=== PATIENT | male | born 1960 | race Caucasian/White ===

== ENCOUNTER 2017-10-03 04:17 | Inpatient (IN) ==
--- NOTE | 2017-10-03 04:37 | Emergency Department Note ---
Disposition Clinical Impression: Diabetic wet gangrene of the foot, ESRD (end stage renal disease) Disposition: Admitted As Inpatient Condition: Undetermined General Adult HPI - General Chief complaint: ED Extremity Problem,Nontraumatic Stated complaint: Gangrene in Lt toe Time Seen by Provider: 10/03/17 04:23 Source: patient Limitations: no limitations - History of Present Illness Pain Scale: 10 - Related Data Home Medications Medication Instructions Recorded Confirmed Calcium Acetate [Phos-LO] 2,001 mg PO TIDWM 02/09/15 10/03/17 Aspirin 81 mg PO DAILY 10/03/17 10/03/17 Atorvastatin [Lipitor] 40 mg PO HS 10/03/17 10/03/17 Bumetanide [Bumex] 1 mg PO DAILY 10/03/17 10/03/17 Docusate Sodium [Dok] 100 mg PO BID 10/03/17 10/03/17 Isosorbide DInitrate [Isosorbide 50 mg PO TID 10/03/17 10/03/17 Dinitrate] Losartan Potassium [Cozaar] 100 mg PO DAILY 10/03/17 10/03/17 NIFEdipine [Nifedipine ER] 60 mg PO DAILY 10/03/17 10/03/17 OxyCODONE Immed Rel [Roxicodone 15 15 mg PO BID 10/03/17 10/03/17 MG] Renal Vitamin [Renal Caps Softgel] 1 cap PO DAILY 10/03/17 10/03/17 Allergies Allergy/AdvReac Type Severity Reaction Status Date / Time No Known Allergies Allergy Verified 07/18/16 08:43 Past Medical History - Past Medical History Medical history: Reports: diabetes, dialysis, hypertension, renal disease Surgical history: Reports: appendectomy, other Psychiatric history: Reports: no psych history - Social History Smoking Status: Never smoker Smokeless Tobacco Status: No Alcohol use: Reports: none Drug use: Reports: none Physical Exam - General Limitations: no limitations General appearance: alert, in no apparent distress Course Vital Signs Temperature 98.4 F 10/03/17 04:20 Pulse Rate 73 10/03/17 04:20 Respiratory Rate 20 10/03/17 04:20 Blood Pressure 120/65 10/03/17 04:20 O2 Sat by Pulse Oximetry 93 10/03/17 04:20 Temperature 97.9 F 10/03/17 18:36 Pulse Rate 62 10/03/17 11:06 Respiratory Rate 18 10/03/17 18:36 Blood Pressure 133/68 10/03/17 18:36 O2 Sat by Pulse Oximetry 94 10/03/17 11:06 Oxygen Delivery Oxygen Delivery Room Air Medical Decision Making - Lab Data Result diagrams: 10/03/17 04:40 10/03/17 04:40 Lab Results 10/03/17 10/03/17 10/03/17 Range/Units 04:40 04:40 04:40 WBC 13.0 H (4.3-11.1) K/mcL RBC 3.10 L (4.19-5.50) M/mcL Hgb 10.6 L (12.9-16.9) g/dL Hct 30.5 L (37.5-50.1) % MCV 98.4 (83.0-100.0) fL MCH 34.2 H (28.0-33.3) pg MCHC 34.8 (31.6-35.5) g/dL RDW 11.9 (11.5-14.5) % Plt Count 228 (140-400) K/mcL MPV 9.5 (9.4-12.4) fL Immature Gran % 0.7 (0-4) % Seg Neutrophils % 81.0 % Lymphocytes % 6.1 % Monocytes % 9.2 % Eosinophils % 2.8 % Basophils % 0.2 % Neutrophils # 10.5 H (1.6-8.9) K/mcL Lymphocytes # 0.8 (0.6-4.6) K/mcL Monocytes # 1.2 (0.0-1.3) K/mcL Eosinophils # 0.4 (0.0-0.6) K/mcL Basophils # 0.0 (0.0-0.2) K/mcL Sodium 130 L (136-145) mEq/L Potassium 3.3 L (3.5-5.1) mEq/L Chloride 85 L (98-107) mEq/L Carbon Dioxide 28 (23-29) mEq/L BUN 35 H (6-20) mg/dL Creatinine 9.00 H (0.70-1.30) mg/dL Est GFR ( Amer) 7 L (> 60) Est GFR (Non-Af Amer) 6 L (> 60) BUN/Creatinine Ratio 4 L (6-26) Glucose 159 H (70-105) mg/dL POC Glucose (70-99) mg/dL Calculated Osmolality 281 (280-300) Lactic Acid 0.9 (0.5-2.2) mmol/L Calcium 9.7 (8.6-10.3) mg/dL 10/03/17 Range/Units 07:01 WBC (4.3-11.1) K/mcL RBC (4.19-5.50) M/mcL Hgb (12.9-16.9) g/dL Hct (37.5-50.1) % MCV (83.0-100.0) fL MCH (28.0-33.3) pg MCHC (31.6-35.5) g/dL RDW (11.5-14.5) % Plt Count (140-400) K/mcL MPV (9.4-12.4) fL Immature Gran % (0-4) % Seg Neutrophils % % Lymphocytes % % Monocytes % % Eosinophils % % Basophils % % Neutrophils # (1.6-8.9) K/mcL Lymphocytes # (0.6-4.6) K/mcL Monocytes # (0.0-1.3) K/mcL Eosinophils # (0.0-0.6) K/mcL Basophils # (0.0-0.2) K/mcL Sodium (136-145) mEq/L Potassium (3.5-5.1) mEq/L Chloride (98-107) mEq/L Carbon Dioxide (23-29) mEq/L BUN (6-20) mg/dL Creatinine (0.70-1.30) mg/dL Est GFR ( Amer) (> 60) Est GFR (Non-Af Amer) (> 60) BUN/Creatinine Ratio (6-26) Glucose (70-105) mg/dL POC Glucose 137 H (70-99) mg/dL Calculated Osmolality (280-300) Lactic Acid (0.5-2.2) mmol/L Calcium (8.6-10.3) mg/dL Attestation Statement - Attestation Attestation: I examined this patient and my medical decision-making was reviewed with the Resident Physician. I agree with the documented findings, disposition and treatment plan as described except to the extent set forth below. [id number] provided Patient arrives with a swollen necrotic appearing left great toe. History of dialysis dependency and diabetes. Patient recently scheduled for surgical intervention an outside facility canceled due to surgical risks
--- NOTE | 2017-10-03 04:38 | Emergency Department Note ---
Disposition Clinical Impression: Diabetic wet gangrene of the foot, ESRD (end stage renal disease) Disposition: Admitted As Inpatient Condition: Undetermined Referrals: Kacie Lopez CNP [Primary Care Provider] - Forms: ED Satisfaction Letter Time of Disposition: 05:35 Extremity Problem HPI - General Chief complaint: ED Extremity Problem,Nontraumatic Stated complaint: Gangrene in Lt toe Time Seen by Provider: 10/03/17 04:23 Source: patient Mode of arrival: ambulatory Limitations: no limitations Nursing Notes Reviewed: Yes Vital Signs Reviewed: Yes - History of Present Illness HPI Narrative: 57-year-old male dialysis patient at here at [facility], diabetes, that is poorly controlled, with gangrene of his left great toe. The patient states he was supposed to have surgery today at [facility] but the anesthesiologist canceled it due to complications of the patient's health including diabetes and dialysis. The patient states they told him to come to [facility] for further evaluation. The patient states that he has been expressing worsening pain and discharge from the site. He admits to chills without fever. He is very concerned about his left great toe. Pain Scale: 10 - Related Data Home Medications Medication Instructions Recorded Confirmed Amlodipine [Amlodipine Besylate] 10 mg PO DAILY 02/09/15 02/09/15 Calcium Acetate [Phos-LO] 2,001 mg PO TIDWM 02/09/15 02/09/15 Lisinopril [Zestril] 40 mg PO DAILY 02/09/15 02/09/15 NIFEdipine [Procardia] 120 mg PO DAILY 02/09/15 02/09/15 OxyCODONE Immed Rel 10 mg PO Q6HR PRN 02/09/15 02/09/15 Oxycodone HCl/Acetaminophen 1 tab PO Q6H PRN 02/09/15 02/09/15 [Percocet 10-325 mg Tablet] Promethazine [Phenergan] 25 mg PO Q6HR 02/09/15 02/09/15 Allergies Allergy/AdvReac Type Severity Reaction Status Date / Time No Known Allergies Allergy Verified 07/18/16 08:43 All systems ED: reviewed and negative except as stated. Constitutional: Reports: chills. Denies: fever, weakness ENT ED: Denies: dysphagia Cardiovascular: Denies: chest pain Respiratory: Denies: dyspnea Gastrointestinal: Denies: abdominal pain, nausea, vomiting Genitourinary: Denies: urgency, dysuria Musculoskeletal: Reports: arthralgia, myalgia. Denies: back pain Integumentary: Reports: lesions. Denies: rash Neurological: Reports: numbness, paresthesias. Denies: headache, confusion Past Medical History - Past Medical History Attestation: Yes The following information was validated with the patient. Source: patient Medical history: Reports: diabetes, dialysis, hypertension, renal disease Surgical history: Reports: appendectomy, other Psychiatric history: Reports: no psych history - Social History Smoking Status: Never smoker Smokeless Tobacco Status: No Alcohol use: Reports: none Drug use: Reports: none Physical Exam - General Limitations: no limitations General appearance: alert, in no apparent distress - Head Head exam: atraumatic, normocephalic, normal inspection - Eye Eye exam: Present: normal appearance, PERRL, EOMI - ENT ENT exam: normal exam, normal oropharynx, mucous membranes moist - Neck Neck exam: Present: normal inspection, full ROM, trachea midline - Chest Chest inspection: Present: normal inspection, symmetric chest wall rise - Respiratory Respiratory exam: Absent: respiratory distress - Cardiovascular Cardiovascular exam: Present: regular rate - Extremities Exam Extremities exam: Present: full ROM, other (Patient has wet gangrene of his left great toe that extends to the base of it. There is some partial wet gangrene in the webspace between the great toe and second toe. The patient has decreased pulses in that left toe. The patient has no associated cellulitis.) Course - Consultations Consultation #1: Spoke to Dr. Masters in podiatry who will see patient. Consultation placed. Time: 05:35 Vital Signs Temperature 98.4 F 10/03/17 04:20 Pulse Rate 73 10/03/17 04:20 Respiratory Rate 20 10/03/17 04:20 Blood Pressure 120/65 10/03/17 04:20 O2 Sat by Pulse Oximetry 93 10/03/17 04:20 Temperature 98.4 F 10/03/17 04:20 Pulse Rate 73 10/03/17 04:20 Respiratory Rate 20 10/03/17 04:20 Blood Pressure 120/65 10/03/17 04:20 O2 Sat by Pulse Oximetry 93 10/03/17 04:20 Oxygen Delivery Oxygen Delivery Room Air Extremity Problem, Nontraumati - MDM Narrative Medical decision making narrative: Patient's lab work demonstrates a leukocytosis. Blood cultures were drawn. The patient's creatinine is slightly elevated compared to baseline but his potassium and sodium within normal limits. The patient does not need emergent dialysis. The patient is due to have dialysis at some point today. Even the patient's wet gangrene that is noted on his left great toe, the patient was started on Zosyn and vancomycin. The patient will be admitted to the hospital at this time for further workup and likely podiatry consultation and surgical intervention. The patient was made aware and agrees to plan. No further questions or concerns at this time. He is resting otherwise comfortably in the room. Accepted to hospital service, Dr. Busby. - Lab Data Lab results reviewed: Yes I reviewed the patient's lab results. Result diagrams: 10/03/17 04:40 10/03/17 04:40 Lab Results 10/03/17 10/03/17 10/03/17 Range/Units 04:40 04:40 04:40 WBC 13.0 H (4.3-11.1) K/mcL RBC 3.10 L (4.19-5.50) M/mcL Hgb 10.6 L (12.9-16.9) g/dL Hct 30.5 L (37.5-50.1) % MCV 98.4 (83.0-100.0) fL MCH 34.2 H (28.0-33.3) pg MCHC 34.8 (31.6-35.5) g/dL RDW 11.9 (11.5-14.5) % Plt Count 228 (140-400) K/mcL MPV 9.5 (9.4-12.4) fL Immature Gran % 0.7 (0-4) % Seg Neutrophils % 81.0 % Lymphocytes % 6.1 % Monocytes % 9.2 % Eosinophils % 2.8 % Basophils % 0.2 % Neutrophils # 10.5 H (1.6-8.9) K/mcL Lymphocytes # 0.8 (0.6-4.6) K/mcL Monocytes # 1.2 (0.0-1.3) K/mcL Eosinophils # 0.4 (0.0-0.6) K/mcL Basophils # 0.0 (0.0-0.2) K/mcL Sodium 130 L (136-145) mEq/L Potassium 3.3 L (3.5-5.1) mEq/L Chloride 85 L (98-107) mEq/L Carbon Dioxide 28 (23-29) mEq/L BUN 35 H (6-20) mg/dL Creatinine 9.00 H (0.70-1.30) mg/dL Est GFR ( Amer) 7 L (> 60) Est GFR (Non-Af Amer) 6 L (> 60) BUN/Creatinine Ratio 4 L (6-26) Glucose 159 H (70-105) mg/dL Calculated Osmolality 281 (280-300) Lactic Acid 0.9 (0.5-2.2) mmol/L Calcium 9.7 (8.6-10.3) mg/dL - Radiology Data Radiology results reviewed: Yes I reviewed the patient's radiology results. Foot X-Ray 10/03/17 04:28 IMPRESSION: No radiographic evidence for osteomyelitis. D/ / Eduar Esquivel MD / Eduar Esquivel MD Interpreting Provider: Eduar Esquivel MD
[2017-10-03 05:02] LABS: Basophils % 0.2 %; Eosinophils # 0.4 K/mcL (0.0-0.6); Eosinophils % 2.8 %; Hematocrit 30.5 % (37.5-50.1); Hemoglobin 10.6 g/dL (12.9-16.9); Immature Granulocytes % 0.7 % (0-4); Lymphocytes # 0.8 K/mcL (0.6-4.6); Lymphocytes % 6.1 %; Mean Corpuscular HGB Conc 34.8 g/dL (31.6-35.5); Mean Corpuscular Hemoglobin 34.2 pg (28.0-33.3); Mean Corpuscular Volume 98.4 fL (83.0-100.0); Mean Platelet Volume 9.5 fL (9.4-12.4); Monocytes # 1.2 K/mcL (0.0-1.3); Monocytes % 9.2 %; Neutrophils # 10.5 K/mcL (1.6-8.9); Platelet Count 228 K/mcL (140-400); Red Cell Distribution Width 11.9 % (11.5-14.5)
[2017-10-03 05:18] LABS: Calcium 9.7 mg/dL (8.6-10.3); Potassium 3.3 mEq/L (3.5-5.1)
[2017-10-03] MEDS ORDERED: Piperacillin/Tazobactam 3.375 GM in 0.9 % Sodium Chloride Mini Bag 100 ML IVPB ONE (05:22)
[2017-10-03] MEDS ORDERED: Naloxone 0.4 MG/ML INJ IVP PRN (08:21)
[2017-10-03] MEDS ORDERED: Acetaminophen 325 MG TABLET PO PRN (08:21)
[2017-10-03] MEDS ORDERED: Dextrose Gel 15 GM/37.5 ML TUBE PO PRN ×2 (08:25)
[2017-10-03] MEDS ORDERED: *HR* Dextrose 50 % in Water (Syg) 50 ML SYRINGE IVP PRN (08:25)
[2017-10-03] MEDS ORDERED: D5% in Water 1,000 ML IVC PRN (08:25)
--- NOTE | 2017-10-03 10:18 | Internal Med History&Physical ---
Date of Encounter: 10/03/17 Time of Encounter: 09:30 Internal Medicine - H&P: HPI Chief complaint: " I need my big toe amputated" Admitted From: Home Plans for Post Hospital Care: Home History of present illness: Mr. Weaver is a 57 year old male with PMH of DM, HTN, ESRD on HD who presented to the ER saying he needs surgery for an infected Left big toe He reports being in his usual state of health till 7 days ago when he developed a blister on his big toe of the left foot and the blister continued to get wider till the foot got infected. He reports his to started getting black a couple of days ago, and he had presented to an outside facility where surgery was recommended but the anesthesits said he was "high risk" and referred him to [place] He denies fever or chills, no preceding trauma, no SOB, no CP, no nausea, vomiting , or diarrhea, he denies any medicationallergies he does not smoke, denies illicit drug use , reports compliance with his meds and HD. He has had surgeries in the past without any mayuri-op complications, nor reactions to anesthesis He denies changes in bowel or urinary habits Past Med Surg Social Fam HX - Past Medical History Medical history: diabetes, dialysis, hypertension, renal disease Additional medical history: heart cath 2018 Psychiatric history: no psych history - Past Surgical History Surgical History: appendectomy, other Additional surgical history: R FOOT SURGERY - Social History Smoking Status: Never smoker Smokeless Tobacco Status: No Alcohol use: none Drug use: none Internal Medicine - H&P: Meds Calcium Acetate [Phos-LO] 2,001 mg PO TIDWM 02/09/15 [History] Aspirin 81 mg PO DAILY 10/03/17 [History] Atorvastatin [Lipitor] 40 mg PO HS 10/03/17 [History] Bumetanide [Bumex] 1 mg PO DAILY 10/03/17 [History] Docusate Sodium [Dok] 100 mg PO BID 10/03/17 [History] Isosorbide DInitrate [Isosorbide Dinitrate] 50 mg PO TID 10/03/17 [History] Losartan Potassium [Cozaar] 100 mg PO DAILY 10/03/17 [History] NIFEdipine [Nifedipine ER] 60 mg PO DAILY 10/03/17 [History] OxyCODONE Immed Rel [Roxicodone 15 MG] 15 mg PO BID 10/03/17 [History] Renal Vitamin [Renal Caps Softgel] 1 cap PO DAILY 10/03/17 [History] 3 Allergy/AdvReac Type Severity Reaction Status Date / Time No Known Allergies Allergy Verified 07/18/16 08:43 All Systems PM: A 10-system review of systems was performed and is negative for pertinent findings except as documented above in the HPI. - Constitutional Constitutional: as per HPI - EENT Eyes: as per HPI Ears: as per HPI Nose, mouth and throat: as per HPI - Cardiovascular Cardiovascular ROS IM: as per HPI - Respiratory Respiratory: as per HPI - Gastrointestinal Gastrointestinal: as per HPI - Musculoskeletal Musculoskeletal ROS IM: as per HPI - Integumentary Integumentary IM: as per HPI - Neurological Neurological ROS: as per HPI - Hematologic/Lymphatic Hematologic/Lymphatic: as per HPI - Constitutional Vitals: Temp Pulse Resp BP Pulse Ox 97.9 F 66 16 117/61 90 10/03/17 07:01 10/03/17 07:01 10/03/17 07:01 10/03/17 07:01 10/03/17 07:01 General appearance: Present: A&O X 3, pleasant, no acute distress Exam: See below - Head Head exam: Present: atraumatic, normal inspection - Eye Eye exam: Present: PERRL, conjuntiva pink, sclera anicteric - ENT ENT exam: Present: mucous membranes moist - Neck Neck exam general surgery: Present: normal inspection - Respiratory Respiratory exam: Present: CTAB - Cardiovascular Cardiovascular exam: Present: RRR, +S1, +S2, systolic murmur. Absent: JVD - GI/Abdominal GI/Abdominal exam: Present: normal bowel sounds, soft, no peritoneal signs. Absent: distended, tenderness - Extremities Exam Additional comments: Left foot in wound dressing clean at this time, not removed as dressing was just done prior to my review - Neurological Exam Neurological exam: Present: alert, CN II-XII intact, oriented X3, no focal deficits. Absent: pronater drift, facial droop, speech deficit - Skin Skin exam: Present: dry, intact Internal Med - H&P Results - Labs CBC & Chem 7: 10/03/17 04:40 10/03/17 04:40 - Assessment and plan (1) Diabetic wet gangrene of the foot Current Visit: Yes Status: Acute Assessment and plan: Awaiting podiatry eval Patient states symptoms started "Friday" But he was supposed to go to surgery at [facility] yesterday but anesthesia cancelled due many medical co-morbidities Apparently he also had a heart cath earlier this year, said to be negative, he states he got the cath due to being on a transplant list ECHO from here (2016) showed likely PFO He is currently not septic No gas gangrene by Xray Obtain STAT EKG and ECHO from here-Patient has a very loud systolic murmur Patient's mayuri-op risk for cardiovascular complications will be determined based on the ECHO,, he has jeferson otherwise a healthy and ambulatory as well as independent Continue Vanco and Zosyn-renally doses Follow vanco trough (2) ESRD (end stage renal disease) Current Visit: Yes Status: Chronic Assessment and plan: Nephrology eval, for routine HD Chem currently acceptable (3) Anemia in chronic kidney disease Current Visit: Yes Status: Chronic Assessment and plan: Hb stable at this time Type and screen a.m Qualifiers: Chronic kidney disease stage: on chronic dialysis Qualified Code(s): N18.6 - End stage renal disease; D63.1 - Anemia in chronic kidney disease; Z99.2 - Dependence on renal dialysis (4) DVT prophylaxis Current Visit: Yes Status: Acute Assessment and plan: SQ heparin (5) HTN (hypertension) Current Visit: Yes Status: Chronic Assessment and plan: Confirm and resume home meds Qualifiers: Hypertension type: essential hypertension Qualified Code(s): I10 - Essential (primary) hypertension (6) Diabetes mellitus Current Visit: Yes Status: Chronic Qualifiers: Diabetes mellitus type: type 2 Diabetes mellitus longterm insulin use: with terminologist use Diabetes mellitus complication status: with kidney complications Diabetes mellitus complication detail: with chronic kidney disease Chronic kidney disease stage: on chronic dialysis Qualified Code(s) : E11.22 - Type 2 diabetes mellitus with diabetic chronic kidney disease; N18.6 - End stage renal disease; 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
[2017-10-03] MEDS ORDERED: 0.9 % Sodium Chloride 250 ML IVC PRN (11:58)
[2017-10-03] MEDS ORDERED: 0.9 % Sodium Chloride 1,000 ML PRIME SCH (12:00)
[2017-10-03] MEDS: Insulin LISPRO 300 UNITS/3 ML VIAL SQ SCH ×3 (12:03→22:37)
--- NOTE | 2017-10-03 12:59 | Podiatry Consult Note ---
Date of Encounter: 10/03/17 Time of Encounter: 08:00 Assessment and Plan (1) Diabetic wet gangrene of the foot Current visit: Yes Status: Acute Left hallux wet gangrene I had a thorough review with the patient regarding his condition, my findings, and recommendations treatment. We discussed infection present in the necrotic changes of the left big toe. Discussed partial amputation of the first ray and that this would be a staged procedure as the wound would likely need to be left open to drain and possibly use a wound VAC. He understood that he would have return trips to the operating room. Nature of the procedure, risks first benefits potential convocation consequence of surgery and his condition discussed at length. No guarantees made as to the outcome that is limb could be salvaged. He understood that he could end up with a amputation of his leg. Nothing by mouth. Added onto OR. History of Present Illness HPI: Mr. Weaver is a 57 year old diabetic male who is on dialysis and says he was scheduled at [facility] as an outpatient for an amputation of his right big toe due to gangrene. Patient says it all started a week ago as a blister and the toe gradually . He said anesthesia at [facility] refused to operate on him because of his health so he came to [facility] because someone told him that they can handle his conditions better here. He says he does not know who the doctor was that had him scheduled there. Denies fever, chills, nausea, vomiting. Past Med Surg Social Fam HX - Past Medical History Medical history: diabetes, dialysis, hypertension, renal disease Additional medical history: heart cath 2018 Psychiatric history: no psych history - Past Surgical History Surgical History: appendectomy, other Additional surgical history: R FOOT SURGERY - Social History Smoking Status: Never smoker Smokeless Tobacco Status: No Alcohol use: none Drug use: none Medications and Allergies Calcium Acetate [Phos-LO] 2,001 mg PO TIDWM 02/09/15 [History] Aspirin 81 mg PO DAILY 10/03/17 [History] Atorvastatin [Lipitor] 40 mg PO HS 10/03/17 [History] Bumetanide [Bumex] 1 mg PO DAILY 10/03/17 [History] Docusate Sodium [Dok] 100 mg PO BID 10/03/17 [History] Isosorbide DInitrate [Isosorbide Dinitrate] 50 mg PO TID 10/03/17 [History] Losartan Potassium [Cozaar] 100 mg PO DAILY 10/03/17 [History] NIFEdipine [Nifedipine ER] 60 mg PO DAILY 10/03/17 [History] OxyCODONE Immed Rel [Roxicodone 15 MG] 15 mg PO BID 10/03/17 [History] Renal Vitamin [Renal Caps Softgel] 1 cap PO DAILY 10/03/17 [History] 3 Allergy/AdvReac Type Severity Reaction Status Date / Time No Known Allergies Allergy Verified 07/18/16 08:43 All Systems Reviewed: The remainder of the systems were reviewed and are negative - Constitutional Constitutional: no fever(s) - Cardiovascular Cardiovascular: no chest pain, no dyspnea - Respiratory Respiratory: no cough, no dyspnea - Musculoskeletal Musculoskeletal: numbness, no limited range of motion Physical Exam - Constitutional Vitals: Temp Pulse Resp BP Pulse Ox 97.8 F 62 16 106/54 94 10/03/17 11:06 10/03/17 11:06 10/03/17 11:06 10/03/17 11:06 10/03/17 11:06 General appearance: no acute distress - Ankle & Foot Exam: Well developed and nourished male in no acute distress Left foot hallux is gangrenous and cool to touch. There is drainage underneath the gangrene and toe is moist consistent with wet gangrene. There is erythema extending onto the left foot. DP pulse on the dorsum of the foot was palpable. No gangrenous changes other than the left hallux is present. absent protective sensation. Results - Labs Result Diagrams: 10/03/17 04:40 10/03/17 04:40 Labs: Abnormal lab results WBC 13.0 K/mcL (4.3-11.1) H 10/03/17 04:40 RBC 3.10 M/mcL (4.19-5.50) L 10/03/17 04:40 Hgb 10.6 g/dL (12.9-16.9) L 10/03/17 04:40 Hct 30.5 % (37.5-50.1) L 10/03/17 04:40 MCH 34.2 pg (28.0-33.3) H 10/03/17 04:40 Neutrophils # 10.5 K/mcL (1.6-8.9) H 10/03/17 04:40 Sodium 130 mEq/L (136-145) L 10/03/17 04:40 Potassium 3.3 mEq/L (3.5-5.1) L 10/03/17 04:40 Chloride 85 mEq/L (98-107) L 10/03/17 04:40 BUN 35 mg/dL (6-20) H 10/03/17 04:40 Creatinine 9.00 mg/dL (0.70-1.30) H 10/03/17 04:40 Est GFR ( Amer) 7 (> 60) L 10/03/17 04:40 Est GFR (Non-Af Amer) 6 (> 60) L 10/03/17 04:40 BUN/Creatinine Ratio 4 (6-26) L 10/03/17 04:40 Glucose 159 mg/dL (70-105) H 10/03/17 04:40 POC Glucose 137 mg/dL (70-99) H 10/03/17 07:01 All other labs normal. Consult Discharge Plan - Plan Referrals: Kacie Lopez CNP [Primary Care Provider] -
[2017-10-03] MEDS ORDERED: 0.9 % Sodium Chloride 1,000 ML ONE (13:43)
[2017-10-03] MEDS ORDERED: Lidocaine 1% 20 ML MDV ONE (16:08)
[2017-10-03] MEDS ORDERED: Bupivacaine/EPI 1:200k 0.25%PF 10 ML VIAL INFILT ONE (16:08)
[2017-10-03 16:35] LABS: Hepatitis B Surface Antigen Nonreactive (Nonreactive)
[2017-10-03] MEDS ORDERED: Vancomycin 500 MG in 0.9 % Sodium Chloride Mini Bag 100 ML IVPB ONE (17:00)
[2017-10-03] MEDS: Calcium Acetate 667 MG CAPSULE PO SCH (18:51)
[2017-10-03] MEDS: *HR* Heparin 5,000 UNIT/ML VIAL SQ SCH (18:58)
[2017-10-03] MEDS: Piperacillin/Tazobactam 3.375 GM in 0.9 % Sodium Chloride Mini Bag 100 ML IVPB SCH (18:58)
[2017-10-03] MEDS ORDERED: *HR* Promethazine 25 MG/ML VIAL IVP ONE (22:21)
[2017-10-03] MEDS ORDERED: *HR* Promethazine 25 MG/ML VIAL ONE (22:24)
[2017-10-03] MEDS: *HR* OxyCODONE Immed Rel 5 MG TABLET PO PRN (22:31)
[2017-10-03] MEDS: Insulin DETEMIR 100 UNIT/ML X5UNITS SQ SCH (22:37)
--- NOTE | 2017-10-03 23:36 | Nephrology Consult Note ---
Date of Encounter: 10/04/17 Time of Encounter: 23:31 Assessment and Plan (1) ESRD (end stage renal disease) Current Visit: Yes Status: Chronic HD MWF. Renal vitamins. Renal dose medications. Renal diet. Additional dialysis and ultrafiltration as needed. He was seen on dialysis. (2) Anemia in chronic kidney disease Current Visit: Yes Status: Chronic Qualifiers: Chronic kidney disease stage: on chronic dialysis Qualified Code(s): N18.6 - End stage renal disease; D63.1 - Anemia in chronic kidney disease; Z99.2 - Dependence on renal dialysis (3) Diabetes mellitus Current Visit: Yes Status: Chronic Qualifiers: Diabetes mellitus type: type 2 Diabetes mellitus assisted insulin use: with assisted use Diabetes mellitus complication status: with kidney complications Diabetes mellitus complication detail: with chronic kidney disease Chronic kidney disease stage: on chronic dialysis Qualified Code(s) : E11.22 - Type 2 diabetes mellitus with diabetic chronic kidney disease; N18.6 - End stage renal disease; 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 Qualifiers: Hypertension type: essential hypertension Qualified Code(s): I10 - Essential (primary) hypertension History of Present Illness - Reason for Consult Consult date: 10/03/17 end stage renal disease - Chief Complaint ESRD - History of Present Illness Mr. Ray is a 57-year-old gentleman with a history of end-stage renal disease who dialyzes Friday via a left forearm fistula. He is in secondary to gangrene of his foot. At my evaluation he has no complaints he denies chest pain, shortness of breath or any other problems. Past Med Surg Social Fam HX - Past Medical History Medical history: diabetes, dialysis, hypertension, renal disease Additional medical history: heart cath 2018 Psychiatric history: no psych history - Past Surgical History Surgical History: appendectomy, other Additional surgical history: R FOOT SURGERY - Social History Smoking Status: Never smoker Smokeless Tobacco Status: No Alcohol use: none Drug use: none Medications and Allergies Calcium Acetate [Phos-LO] 2,001 mg PO TIDWM 02/09/15 [History] Aspirin 81 mg PO DAILY 10/03/17 [History] Atorvastatin [Lipitor] 40 mg PO HS 10/03/17 [History] Bumetanide [Bumex] 1 mg PO DAILY 10/03/17 [History] Docusate Sodium [Dok] 100 mg PO BID 10/03/17 [History] Isosorbide DInitrate [Isosorbide Dinitrate] 50 mg PO TID 10/03/17 [History] Losartan Potassium [Cozaar] 100 mg PO DAILY 10/03/17 [History] NIFEdipine [Nifedipine ER] 60 mg PO DAILY 10/03/17 [History] OxyCODONE Immed Rel [Roxicodone 15 MG] 15 mg PO BID 10/03/17 [History] Renal Vitamin [Renal Caps Softgel] 1 cap PO DAILY 10/03/17 [History] 3 Allergy/AdvReac Type Severity Reaction Status Date / Time No Known Allergies Allergy Verified 07/18/16 08:43 Review of Systems All Systems: reviewed and no additional remarkable complaints except as stated ( Document in history of present illness) Exam - Vital Signs Vital signs: Initial Vital Signs Temp Pulse Resp BP Pulse Ox 98.4 F 73 20 120/65 93 10/03/17 04:20 10/03/17 04:20 10/03/17 04:20 10/03/17 04:20 10/03/17 04:20 Vital Signs - Last 8 Hours Temp Pulse Resp BP Pulse Ox 10/03/17 21:09 99 F 86 17 135/61 93 10/03/17 18:36 97.9 F 18 133/68 10/03/17 18:05 138/71 10/03/17 17:50 142/69 10/03/17 17:35 130/67 10/03/17 17:20 125/54 10/03/17 17:05 125/55 10/03/17 16:50 129/60 10/03/17 16:35 132/58 10/03/17 16:20 135/67 10/03/17 16:05 121/53 10/03/17 15:50 120/55 10/03/17 15:35 129/69 Intake and Output 10/03/17 10/03/17 10/03/17 07:59 15:59 23:59 Intake Total 840 / 840 Output Total 1600 / 1600 Balance 840 / 840 -1600 / -1600 Intake: Oral 240 / 240 Intake, Rinseback and Flushes 600 / 600 Output: Urine 0 / 0 Total Dialysis (HD) Output 1600 / 1600 Other: Meal Lunch Percent of Meal Consumed 5% Blood Glucose* 193 203 Hemodialysis Net Fluid Removed 573 1000 (mL) - General Appearance General appearance: well-developed, well-nourished EENT: ATNC Neck: supple Respiratory: clear Cardiology: no edema, regular rate, regular rhythm - Dialysis Access Dialysis Vascular Access: Arteriovenous Fistula thrill: Yes bruit: Yes Gastrointestinal: normoactive bowel sounds Integumentary: warm and dry Neurologic: alert and oriented x3 Musculoskeletal: no cyanosis Psychiatric: mood/affect appropriate Results - Lab Results 10/03/17 04:40 10/03/17 04:40 Most recent lab results Calcium 9.7 mg/dL (8.6-10.3) 10/03/17 04:40 Consult Discharge Plan - Plan Referrals: Kacie Lopez CNP [Primary Care Provider] -
[2017-10-04 05:46] LABS: Basophils % 0.3 %; Eosinophils # 0.2 K/mcL (0.0-0.6); Eosinophils % 1.8 %; Hematocrit 28.7 % (37.5-50.1); Hemoglobin 9.7 g/dL (12.9-16.9); Immature Granulocytes % 0.7 % (0-4); Lymphocytes # 0.6 K/mcL (0.6-4.6); Lymphocytes % 5.4 %; Mean Corpuscular HGB Conc 33.8 g/dL (31.6-35.5); Mean Corpuscular Hemoglobin 34.2 pg (28.0-33.3); Mean Corpuscular Volume 101.1 fL (83.0-100.0); Mean Platelet Volume 9.2 fL (9.4-12.4); Monocytes # 1.1 K/mcL (0.0-1.3); Monocytes % 9.8 %; Neutrophils # 9.3 K/mcL (1.6-8.9); Platelet Count 217 K/mcL (140-400); Red Blood Count 2.84 M/mcL (4.19-5.50); Red Cell Distribution Width 11.9 % (11.5-14.5)
[2017-10-04 06:06] LABS: Calcium 9.5 mg/dL (8.6-10.3); Potassium 3.6 mEq/L (3.5-5.1)
[2017-10-04] MEDS: *HR* Heparin 5,000 UNIT/ML VIAL SQ SCH ×2 (06:11→17:08)
[2017-10-04] MEDS: Piperacillin/Tazobactam 3.375 GM in 0.9 % Sodium Chloride Mini Bag 100 ML IVPB SCH ×2 (06:11→17:30)
[2017-10-04] MEDS ORDERED: Bupivacaine/EPI 1:200k 0.25%PF 30 ML VIAL ONE (07:05)
[2017-10-04] MEDS ORDERED: Lidocaine 1% 20 ML MDV ONE (07:06)
--- NOTE | 2017-10-04 07:11 | Anesthesia Evaluation PreOp ---
Date of Encounter: 10/04/17 Time of Encounter: 07:07 - Past History Planned Operation: L-foot great toe Ray removal Cardiac History: HTN, Hyperlipidemia, Other ("clean (2018) Heart Cath" per Patient) Pulmonary History: Denies Any Significant HX SURVEY RODMAN History: Denies Any Significant HX Other Medical History: Renal (ESRD on Hd), Diabetes Type II, Other (admission re: "wet gangrene" L-foot) Anesthesia History: No Prior Anesthetic Complications, Past Anesthesia (Appy,R- foot surgery, LUE vascular access creation) Alcohol Use: none Drug use: none Medications and Allergies Calcium Acetate [Phos-LO] 2,001 mg PO TIDWM 02/09/15 [History] Aspirin 81 mg PO DAILY 10/03/17 [History] Atorvastatin [Lipitor] 40 mg PO HS 10/03/17 [History] Bumetanide [Bumex] 1 mg PO DAILY 10/03/17 [History] Docusate Sodium [Dok] 100 mg PO BID 10/03/17 [History] Isosorbide DInitrate [Isosorbide Dinitrate] 50 mg PO TID 10/03/17 [History] Losartan Potassium [Cozaar] 100 mg PO DAILY 10/03/17 [History] NIFEdipine [Nifedipine ER] 60 mg PO DAILY 10/03/17 [History] OxyCODONE Immed Rel [Roxicodone 15 MG] 15 mg PO BID 10/03/17 [History] Renal Vitamin [Renal Caps Softgel] 1 cap PO DAILY 10/03/17 [History] 3 Allergy/AdvReac Type Severity Reaction Status Date / Time No Known Allergies Allergy Verified 07/18/16 08:43 - Meds/Allergy Pre-op Review Medications Reviewed: Yes Allergies Reviewed: Yes Beta Blockers on Current Med List: No Anesthesia Results - Labs 10/04/17 05:19 10/04/17 05:19 Laboratory Results WBC 11.4 K/mcL (4.3-11.1) H 10/04/17 05:19 RBC 2.84 M/mcL (4.19-5.50) L 10/04/17 05:19 Hgb 9.7 g/dL (12.9-16.9) L 10/04/17 05:19 Hct 28.7 % (37.5-50.1) L 10/04/17 05:19 MCV 101.1 fL (83.0-100.0) H 10/04/17 05:19 MCH 34.2 pg (28.0-33.3) H 10/04/17 05:19 MCHC 33.8 g/dL (31.6-35.5) 10/04/17 05:19 RDW 11.9 % (11.5-14.5) 10/04/17 05:19 Plt Count 217 K/mcL (140-400) 10/04/17 05:19 MPV 9.2 fL (9.4-12.4) L 10/04/17 05:19 Immature Gran % 0.7 % (0-4) 10/04/17 05:19 Seg Neutrophils % 82.0 % 10/04/17 05:19 Lymphocytes % 5.4 % 10/04/17 05:19 Monocytes % 9.8 % 10/04/17 05:19 Eosinophils % 1.8 % 10/04/17 05:19 Basophils % 0.3 % 10/04/17 05:19 Neutrophils # 9.3 K/mcL (1.6-8.9) H 10/04/17 05:19 Lymphocytes # 0.6 K/mcL (0.6-4.6) 10/04/17 05:19 Monocytes # 1.1 K/mcL (0.0-1.3) 10/04/17 05:19 Eosinophils # 0.2 K/mcL (0.0-0.6) 10/04/17 05:19 Basophils # 0.0 K/mcL (0.0-0.2) 10/04/17 05:19 Sodium 136 mEq/L (136-145) 10/04/17 05:19 Potassium 3.6 mEq/L (3.5-5.1) 10/04/17 05:19 Chloride 95 mEq/L (98-107) L 10/04/17 05:19 Carbon Dioxide 31 mEq/L (23-29) H 10/04/17 05:19 BUN 15 mg/dL (6-20) 10/04/17 05:19 Creatinine 5.20 mg/dL (0.70-1.30) H 10/04/17 05:19 Est GFR ( Amer) 14 (> 60) L 10/04/17 05:19 Est GFR (Non-Af Amer) 12 (> 60) L 10/04/17 05:19 BUN/Creatinine Ratio 3 (6-26) L 10/04/17 05:19 Glucose 141 mg/dL (70-105) H 10/04/17 05:19 POC Glucose 104 mg/dL (70-99) H 10/03/17 16:50 Calculated Osmolality 285 (280-300) 10/04/17 05:19 Lactic Acid 0.9 mmol/L (0.5-2.2) 10/03/17 04:40 Calcium 9.5 mg/dL (8.6-10.3) 10/04/17 05:19 Random Vancomycin 17 mcg/mL 10/04/17 05:19 Hep Bs Antigen Nonreactive (Nonreactive) 10/03/17 11:53 Hep Bs Antibody 0.00 mIU/mL 10/03/17 11:53 Blood Type O POSITIVE 10/04/17 05:19 Antibody Screen NEGATIVE 10/04/17 05:19 Impressions Foot X-Ray 10/03/17 04:28 IMPRESSION: No radiographic evidence for osteomyelitis. D/ / Eduar Esquivel MD / Eduar Esquivel MD Interpreting Provider: Eduar Esquivel MD Anesthesia Exam Vital Signs Temp Pulse Resp BP Pulse Ox 10/04/17 05:27 97.4 F L 66 17 131/61 97 10/04/17 00:21 102.2 F H 81 17 138/64 91 10/03/17 21:09 99 F 86 17 135/61 93 10/03/17 18:36 97.9 F 18 133/68 10/03/17 18:05 138/71 10/03/17 17:50 142/69 10/03/17 17:35 130/67 10/03/17 17:20 125/54 10/03/17 17:05 125/55 10/03/17 16:50 129/60 10/03/17 16:35 132/58 10/03/17 16:20 135/67 10/03/17 16:05 121/53 10/03/17 15:50 120/55 10/03/17 15:35 129/69 10/03/17 15:20 126/66 10/03/17 15:05 111/56 10/03/17 14:50 111/56 10/03/17 14:35 98.5 F 18 97/52 10/03/17 11:06 97.8 F 62 16 106/54 94 Intake and Output 10/03/17 10/03/17 10/04/17 15:59 23:59 07:59 Intake Total 840 / 840 100 / 100 Output Total 1600 / 1600 Balance 840 / 840 -1500 / -1500 Intake: IV Fluids 100 / 100 Zosyn 3.375 GM In 0.9 % Sodium 100 / 100 Chloride (Mini-Bag +) 100 ML @ 25 mls/hr IVPB Q12HR [facility] Rx#: [id number] Oral 240 / 240 Intake, Rinseback and Flushes 600 / 600 Output: Urine 0 / 0 Total Dialysis (HD) Output 1600 / 1600 Other: Meal Lunch Percent of Meal Consumed 5% Weight 72 kg Blood Glucose* 193 203 178 Hemodialysis Net Fluid Removed 573 1000 (mL) Patient Weight 10/04/17 23:59 Weight 72 kg Height: 5'11" Weight: 158# BMI = 22 NPO (# of Hours): MNoc - HEENT Pupil (Motor): Pupils equal, EOMI Mallampati: II Teeth: Edentulous Oral Opening: Greater than 3 - SURVEY RODMAN LOC: Oriented SURVEY RODMAN Motor: Normal RUE, Normal LUE, Normal RLE, Normal LLE, Normal Face SURVEY RODMAN Sensory: Normal: RUE, LUE, RLE, LLE, Face - Cardiac Rhythm: Regular Murmur: None - Pulmonary Breath Sounds: bilateral Clear Respiratory Effort: Symmetrical Anesthesia Assess/Plan ASA Score: 4 (ESRD, HTN, DM) Modified [place] Scale for Level of Consciousness: Cooperative, oriented, and tranquil Anesthetic Plan: General Monitoring Plan: Standard Monitors Recovery Plan: PACU Anes Supervising Prov Stmt: PT seen/evaluated, R&B Discussed, questions answered and consent obtained. Namita Flores MD
[2017-10-04] MEDS ORDERED: Lidocaine -MPF 2% 2 ML VIAL ONE (07:25)
[2017-10-04] MEDS ORDERED: *HR* Midazolam HCl 2 MG/2 ML VIAL ONE (07:26)
[2017-10-04] MEDS ORDERED: *HR* FentaNYL (PF) 100 MCG/2 ML VIAL ONE (07:26)
[2017-10-04] MEDS ORDERED: *HR* Propofol 200 MG/20 ML VIAL IVP ONE (07:26)
[2017-10-04] MEDS: Calcium Acetate 667 MG CAPSULE PO SCH ×3 (07:29→17:09)
[2017-10-04] MEDS: Insulin LISPRO 300 UNITS/3 ML VIAL SQ SCH ×5 (07:29→21:30)
--- NOTE | 2017-10-04 07:53 | Event Note ---
Date of Encounter: 10/03/17 Time of Encounter: 16:30 Patient ate lunch yesterday. Not septic. Case post-poned until morning 10/04/17. Had dialysis Friday.
[2017-10-04] MEDS ORDERED: Acetaminophen IV 1,000 MG/100 ML INFUS..BTL ONE (07:55)
--- NOTE | 2017-10-04 08:29 | Anesthesia Evaluation PreOp ---
Date of Encounter: 10/04/17 - Past History Alcohol Use: none Drug use: none Medications and Allergies Calcium Acetate [Phos-LO] 2,001 mg PO TIDWM 02/09/15 [History] Aspirin 81 mg PO DAILY 10/03/17 [History] Atorvastatin [Lipitor] 40 mg PO HS 10/03/17 [History] Bumetanide [Bumex] 1 mg PO DAILY 10/03/17 [History] Docusate Sodium [Dok] 100 mg PO BID 10/03/17 [History] Isosorbide DInitrate [Isosorbide Dinitrate] 50 mg PO TID 10/03/17 [History] Losartan Potassium [Cozaar] 100 mg PO DAILY 10/03/17 [History] NIFEdipine [Nifedipine ER] 60 mg PO DAILY 10/03/17 [History] OxyCODONE Immed Rel [Roxicodone 15 MG] 15 mg PO BID 10/03/17 [History] Renal Vitamin [Renal Caps Softgel] 1 cap PO DAILY 10/03/17 [History] 3 Allergy/AdvReac Type Severity Reaction Status Date / Time No Known Allergies Allergy Verified 07/18/16 08:43 Anesthesia Results - Labs 10/04/17 05:19 10/04/17 05:19
[2017-10-04] MEDS ORDERED: EPHEDrine 50 MG/ML VIAL ONE (08:47)
[2017-10-04] MEDS ORDERED: Vancomycin 1 EACH in 0.9 % Sodium Chloride 250 ML IVPB PRN (09:00)
--- NOTE | 2017-10-04 09:03 | Operative Note ---
Date of procedure: 10/04/17 Pre-op diagnosis: Wet gangrene left hallux Post-op diagnosis: same Procedure: partial left 1st ray amputation Implants: none Complications: none Anesthesia: GETA Local Anesthetics: 1% Lidocaine HCL SubQ (cc) Surgeon: Kendall Crenshaw Was there an records assistant present: No Estimated blood loss (cc): 100 Specimen: micro-soft tissue, bone proximal phalanx, 1st metatarsal path-toe, 1st met Condition: stable Disposition: PACU Procedure in Detail: Indications: 57-year-old diabetic male on dialysis with wet gangrene of the left hallux 8 yesterday not septic case postponed until today. Patient being brought to the operating room for partial left first ray amputation understanding this is a staged procedure and he would require more surgery in the amputation site will be left open. Nature of the procedure, risks versus benefits potential complications and consequences of surgery and his condition discussed and no guarantees were made that his foot could be salvaged and he understood that he is high risk for partial foot/limb loss. All his questions were answered and the informed consent was signed. Patient was taken from the preoperative holding area and operating room placed on operating room table in the supine position the left foot was scrubbed prepped and draped in the usual sterile fashion no tourniquet was applied over used. The following procedures then began after injecting 10 mL 1% lidocaine plain. Partial left first ray amputation attention was directed to the medial aspect of the patient's left foot where a gangrenous hallux with underlying drainage was present. Skin incision was made full-thickness over the distal aspect of the first metatarsal and in a fish mouth type incision the non-viable hallux was disarticulated at the metatarsophalangeal joint. The toe was sent to microbiology and pathology. It should be noted that there was purulent drainage at the level of the metatarsophalangeal joint surrounding the distal aspect of the first metatarsal. And there was echols nonviable devitalized tissue present which was excised and sent to microbiology. The distal first metatarsal was freed from its soft tissue attachments of the sagittal saw was used to resect part of the metatarsal. This bone was sent to microbiology and pathology. The pulse lavage was utilized to irrigate the surgical site with vancomycin in the irrigation. Upon reinspection no devitalized soft tissue was felt to be present. The extensor and flexor tendons were traced as far proximal and the incision as possible and resected. Retention sutures were placed dorsally and a wound VAC with Adaptic over the bone and black foam was placed and set on 125 mm continuous. Prior to application of the wound VAC the Bovie was used to cauterize any bleeding vessels. Prior to application of the wound vac. there was adequate hemostasis. The patient tolerated the anesthesia and the procedure well and was escorted the recovery room with vital signs stable and vascular status intact to the remaining digits of the left foot noted by instant capillary refill time. He will return to the floor where he will continue IV antibiotics.
--- NOTE | 2017-10-04 10:01 | Anesthesia Evaluation Post Op ---
Date of Encounter: 10/04/17 Time of Encounter: 10:00 - Vital Signs Vital Signs: Vital Signs/O2 Sat/Glucose, Most Current Temp Pulse Resp BP Pulse Ox 10/04/17 09:46 63 16 124/70 99 10/04/17 09:36 97.9 F 64 16 119/73 100 10/04/17 09:26 65 16 125/66 100 10/04/17 09:16 66 16 123/68 98 10/04/17 09:06 97.8 F 74 16 125/72 100 - Lungs Lungs: Clear Ascult./Percussion - Airway Airway: Non-obstructed - Cardiovascular Regular Rate - Mental Status Mental Status: Alert & Oriented, Answers Appropriately - Pain Pain Scale: 0 Pain Scale used: Numeric (1 - 10) - Nausea Vomiting Nausea Vomiting: Not Present - Hydration Hydration: Ice chips, Has not voided - Discharge PostOp Status: Transfer Patient to floor Anes Supervising Prov Stmt: PT seen/evaluated, VSS and has met criteria for discharge to home. - MD Mark
--- NOTE | 2017-10-04 10:44 | Internal Med Progress Note ---
Hospitalist Progress Note - Encounter Date of Encounter: 10/04/17 Time of Encounter: 10:44 - Subjective Interval History: Seen post-op day 0 no new complains States pain is well controlled No immediate mayuri-op problems - Exam Vitals: Temp Pulse Resp BP Pulse Ox 97.8 F 60 16 121/69 99 10/04/17 10:06 10/04/17 10:06 10/04/17 10:06 10/04/17 10:06 10/04/17 10:06 Exam: VSS gen: NAD HEENT: Moist roal mucosa, anicteric, not pale Chest: CTAB heart: S1, S2 only, no m/g/r Abd: Soft, not tender Extremities: wound dressing in left foot clean, slightly soaked neuro: AAOX3, no focal deficits - Assessment and Plan (1) Diabetic wet gangrene of the foot Current Visit: Yes Status: Acute Assessment and Plan: POD 0 s/p partial left 1st ray amputation Seen immediate post-op Podiatry eval appreciated Per Op note, wound vac applied Follow cultures Continue antibiotics (2) ESRD (end stage renal disease) Current Visit: Yes Status: Chronic Assessment and Plan: Nephrology eval, for routine HD Chem currently acceptable (3) Anemia in chronic kidney disease Current Visit: Yes Status: Chronic Assessment and Plan: Hb stable at this time Type and screen done Will transfuse for Hb <7 (4) DVT prophylaxis Current Visit: Yes Status: Acute Assessment and Plan: SQ heparin (5) HTN (hypertension) Current Visit: Yes Status: Chronic Assessment and Plan: Continue home meds (6) Diabetes mellitus Current Visit: Yes Status: Chronic Assessment and Plan: FS ACHS ADA diet Insulin, continue same - Time Spent with Patient Total time spent is greater than 50% in coordination of care (as documented) at patient's floor/unit and/or counseling patient: Plan of Care Discussed with: patient Internal Medicine: Result - Labs CBC & Chem 7: 10/04/17 05:19 10/04/17 05:19 Labs: Short CBC 10/04/17 Range/Units 05:19 WBC 11.4 H (4.3-11.1) K/mcL Hgb 9.7 L (12.9-16.9) g/dL Hct 28.7 L (37.5-50.1) % Plt Count 217 (140-400) K/mcL Neutrophils # 9.3 H (1.6-8.9) K/mcL BMP 10/04/17 05:19 Sodium 136 Potassium 3.6 Chloride 95 L Carbon Dioxide 31 H BUN 15 Creatinine 5.20 H Glucose 141 H Calcium 9.5 Consult Discharge Plan - Plan Referrals: Kacie Lopez, GAURAV [Primary Care Provider] - (3) Anemia in chronic kidney disease Qualifiers: Chronic kidney disease stage: on chronic dialysis Qualified Code(s): N18.6 - End stage renal disease; D63.1 - Anemia in chronic kidney disease; Z99.2 - Dependence on renal dialysis (5) HTN (hypertension) Qualifiers: Hypertension type: essential hypertension Qualified Code(s): I10 - Essential (primary) hypertension (6) Diabetes mellitus Qualifiers: Diabetes mellitus type: type 2 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
[2017-10-04] MEDS: Bumetanide 1 MG TABLET PO SCH (11:03)
[2017-10-04] MEDS: NIFEdipine XL (24 HR) 60 MG TAB.ER.24 PO SCH (11:04)
[2017-10-04] MEDS: Renal Vitamin 1 CAP CAPSULE PO SCH (11:05)
[2017-10-04] MEDS: Aspirin 81 MG TAB.CHEW PO SCH (11:05)
[2017-10-04] MEDS: *HR* OxyCODONE Immed Rel 5 MG TABLET PO PRN ×2 (11:07→17:09)
--- NOTE | 2017-10-04 11:41 | Nephrology Progress Note ---
Date of Encounter: 10/04/17 Time of Encounter: 11:41 - Assessment and Plan (1) ESRD (end stage renal disease) Current Visit: Yes Status: Chronic HD MWF. Renal vitamins. Renal dose medications. Renal diet. Additional dialysis and ultrafiltration as needed. 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 Adjust medications as needed. Qualifiers: Hypertension type: essential hypertension Qualified Code(s): I10 - Essential (primary) hypertension Subjective Principal diagnosis: esrd Interval history: Patient seen. He has no new complaints. Objective - Vital Signs Vital signs: Vital Signs Temp Pulse Resp BP Pulse Ox 10/04/17 11:20 97.8 F 63 18 122/55 91 10/04/17 10:06 97.8 F 60 16 121/69 99 10/04/17 09:56 63 16 120/69 98 10/04/17 09:46 63 16 124/70 99 10/04/17 09:36 97.9 F 64 16 119/73 100 10/04/17 09:26 65 16 125/66 100 10/04/17 09:16 66 16 123/68 98 10/04/17 09:06 97.8 F 74 16 125/72 100 10/04/17 05:27 97.4 F L 66 17 131/61 97 10/04/17 00:21 102.2 F H 81 17 138/64 91 10/03/17 21:09 99 F 86 17 135/61 93 10/03/17 18:36 97.9 F 18 133/68 10/03/17 18:05 138/71 10/03/17 17:50 142/69 10/03/17 17:35 130/67 10/03/17 17:20 125/54 10/03/17 17:05 125/55 10/03/17 16:50 129/60 10/03/17 16:35 132/58 10/03/17 16:20 135/67 10/03/17 16:05 121/53 10/03/17 15:50 120/55 10/03/17 15:35 129/69 10/03/17 15:20 126/66 10/03/17 15:05 111/56 10/03/17 14:50 111/56 10/03/17 14:35 98.5 F 18 97/52 Intake and Output 10/03/17 10/04/17 10/04/17 23:59 07:59 15:59 Intake Total 100 / 100 Output Total 1600 / 1600 100 / 100 Balance -1500 / -1500 -100 / -100 Intake: IV Fluids 100 / 100 Zosyn 3.375 GM In 0.9 % Sodium 100 / 100 Chloride (Mini-Bag +) 100 ML @ 25 mls/hr IVPB Q12HR [facility] Rx#: [id number] Output: Urine 0 / 0 Total Dialysis (HD) Output 1600 / 1600 Estimated Blood Loss 100 / 100 Other: Weight 72 kg Blood Glucose* 203 178 152 Hemodialysis Net Fluid Removed 1000 (mL) Patient Weight 10/04/17 23:59 Weight 72 kg - General Appearance General appearance: Present: well-developed, well-nourished Cardiology: Present: regular rate Neurologic: Present: alert and oriented x3 Psychiatric: Present: mood/affect appropriate - Lab 10/04/17 05:19 10/04/17 05:19 Most recent lab results Calcium 9.5 mg/dL (8.6-10.3) 10/04/17 05:19 - VTE Documentation of Mechanical Device: Intermittent pneumatic compression device Consult Discharge Plan - Plan Referrals: Kacie Lopez, GAURAV [Primary Care Provider] -
[2017-10-04 13:21] LABS: Estimated Average Glucose 134 mg/dl; Hemoglobin A1C 6.3 %
[2017-10-05] MEDS: *HR* HYDROcodone/Acet 5/325 mg TABLET PO PRN ×2 (03:57→17:04)
[2017-10-05 04:41] LABS: Basophils % 0.1 %; Eosinophils # 0.1 K/mcL (0.0-0.6); Eosinophils % 0.8 %; Hematocrit 25.9 % (37.5-50.1); Hemoglobin 8.6 g/dL (12.9-16.9); Immature Granulocytes % 0.8 % (0-4); Lymphocytes # 0.5 K/mcL (0.6-4.6); Lymphocytes % 6.3 %; Mean Corpuscular HGB Conc 33.2 g/dL (31.6-35.5); Mean Corpuscular Hemoglobin 33.6 pg (28.0-33.3); Mean Corpuscular Volume 101.2 fL (83.0-100.0); Mean Platelet Volume 9.4 fL (9.4-12.4); Monocytes # 0.6 K/mcL (0.0-1.3); Monocytes % 7.4 %; Neutrophils # 7.3 K/mcL (1.6-8.9); Platelet Count 202 K/mcL (140-400); Red Blood Count 2.56 M/mcL (4.19-5.50); Segmented Neutrophils % 84.6 %
[2017-10-05 05:00] LABS: Potassium 3.7 mEq/L (3.5-5.1)
[2017-10-05] MEDS: Insulin LISPRO 300 UNITS/3 ML VIAL SQ SCH ×5 (07:07→21:38)
[2017-10-05] MEDS: Insulin DETEMIR 100 UNIT/ML X5UNITS SQ SCH ×2 (07:16→21:38)
[2017-10-05] MEDS: Piperacillin/Tazobactam 3.375 GM in 0.9 % Sodium Chloride Mini Bag 100 ML IVPB SCH ×3 (07:18→16:58)
[2017-10-05] MEDS: *HR* Heparin 5,000 UNIT/ML VIAL SQ SCH ×2 (07:25→16:57)
[2017-10-05] MEDS: Renal Vitamin 1 CAP CAPSULE PO SCH (08:32)
[2017-10-05] MEDS: Bumetanide 1 MG TABLET PO SCH (08:32)
[2017-10-05] MEDS: NIFEdipine XL (24 HR) 60 MG TAB.ER.24 PO SCH (08:32)
[2017-10-05] MEDS: Calcium Acetate 667 MG CAPSULE PO SCH ×3 (08:32→16:56)
[2017-10-05] MEDS: Aspirin 81 MG TAB.CHEW PO SCH (08:32)
--- NOTE | 2017-10-05 09:12 | Nephrology Progress Note ---
Date of Encounter: 10/05/17 Time of Encounter: 09:11 - Assessment and Plan (1) ESRD (end stage renal disease) Current Visit: Yes Status: Chronic HD MWF. Renal vitamins. Renal dose medications. Renal diet. Additional dialysis and ultrafiltration as needed. (2) Anemia in chronic kidney disease Current Visit: Yes Status: Chronic Transfer as needed. Qualifiers: Chronic kidney disease stage: on chronic dialysis Qualified Code(s): N18.6 - End stage renal disease; D63.1 - Anemia in chronic kidney disease; Z99.2 - Dependence on renal dialysis (3) Diabetes mellitus Current Visit: Yes Status: Chronic Per primary team. 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 Adjust medications as needed. Qualifiers: Hypertension type: essential hypertension Qualified Code(s): I10 - Essential (primary) hypertension (5) Diabetic wet gangrene of the foot Current Visit: Yes Status: Acute Per podiatry. Subjective Principal diagnosis: esrd Interval history: Patient seen. He has no new complaints. Objective - Vital Signs Vital signs: Vital Signs Temp Pulse Resp BP Pulse Ox 10/05/17 06:59 98.1 F 64 16 121/62 97 10/05/17 04:57 97.5 F L 66 16 117/69 93 10/04/17 23:43 97.5 F L 66 16 140/64 94 10/04/17 20:58 97.5 F L 72 16 155/74 93 10/04/17 16:30 97.4 F L 74 18 156/73 94 10/04/17 11:20 97.8 F 63 18 122/55 91 10/04/17 10:06 97.8 F 60 16 121/69 99 10/04/17 09:56 63 16 120/69 98 10/04/17 09:46 63 16 124/70 99 10/04/17 09:36 97.9 F 64 16 119/73 100 10/04/17 09:26 65 16 125/66 100 10/04/17 09:16 66 16 123/68 98 Intake and Output 10/04/17 10/05/17 10/05/17 23:59 07:59 15:59 Intake Total 340 / 340 Balance 340 / 340 Intake: IV Fluids 100 / 100 Zosyn 3.375 GM In 0.9 % Sodium 100 / 100 Chloride (Mini-Bag +) 100 ML @ 25 mls/hr IVPB Q12HR [facility] Rx#: [id number] Oral 240 / 240 Other: Meal Dinner Percent of Meal Consumed 50% Weight 81.7 kg Blood Glucose* 323 329 - General Appearance General appearance: Present: well-developed, well-nourished EENT: Present: ATNC Neck: Present: supple Cardiology: Present: regular rate Neurologic: Present: alert and oriented x3 Psychiatric: Present: mood/affect appropriate - Lab 10/05/17 03:53 10/05/17 03:53 Most recent lab results Calcium 9.0 mg/dL (8.6-10.3) 10/05/17 03:53 - VTE Documentation of Mechanical Device: Graduated compression elastic hosiery Consult Discharge Plan - Plan Referrals: Kacie Lopez CNP [Primary Care Provider] -
--- NOTE | 2017-10-05 11:06 | Internal Med Progress Note ---
Hospitalist Progress Note - Encounter Date of Encounter: 10/05/17 Time of Encounter: 11:06 - Subjective Interval History: Seen post-op day 1 no new complains States pain is well controlled No immediate mayuri-op problems - Exam Vitals: Temp Pulse Resp BP Pulse Ox 97.9 F 62 18 126/58 95 10/05/17 10:58 10/05/17 10:58 10/05/17 10:58 10/05/17 10:58 10/05/17 10:58 Exam: VSS gen: NAD HEENT: Moist roal mucosa, anicteric, not pale Chest: CTAB heart: S1, S2 only, no m/g/r Abd: Soft, not tender Extremities: wound dressing in left foot clean, slightly soaked neuro: AAOX3, no focal deficits - Assessment and Plan (1) Diabetic wet gangrene of the foot Current Visit: Yes Status: Acute Assessment and Plan: POD 1 s/p partial left 1st ray amputation Seen immediate post-op Podiatry eval appreciated Per Op note, wound vac applied Follow cultures Continue antibiotics (2) ESRD (end stage renal disease) Current Visit: Yes Status: Chronic Assessment and Plan: Nephrology eval, for routine HD Chem currently acceptable (3) Anemia in chronic kidney disease Current Visit: Yes Status: Chronic Assessment and Plan: Hb stable at this time Type and screen done Will transfuse for Hb <7 (4) DVT prophylaxis Current Visit: Yes Status: Acute Assessment and Plan: SQ heparin (5) HTN (hypertension) Current Visit: Yes Status: Chronic Assessment and Plan: Continue home meds (6) Diabetes mellitus Current Visit: Yes Status: Chronic Assessment and Plan: FS ACHS ADA diet Insulin, continue same - Time Spent with Patient Total time spent is greater than 50% in coordination of care (as documented) at patient's floor/unit and/or counseling patient: Plan of Care Discussed with: patient Internal Medicine: Result - Labs CBC & Chem 7: 10/05/17 03:53 10/05/17 03:53 Labs: Short CBC 10/05/17 Range/Units 03:53 WBC 8.6 (4.3-11.1) K/mcL Hgb 8.6 L (12.9-16.9) g/dL Hct 25.9 L (37.5-50.1) % Plt Count 202 (140-400) K/mcL Neutrophils # 7.3 (1.6-8.9) K/mcL BMP 10/05/17 03:53 Sodium 134 L Potassium 3.7 Chloride 92 L Carbon Dioxide 31 H BUN 26 H Creatinine 6.89 H Glucose 316 H Calcium 9.0 - VTE Documentation of Mechanical Device: Graduated compression elastic hosiery Consult Discharge Plan - Plan Referrals: Kacie Lopez, [employer]RE[employer] [Primary Care Provider] - (3) Anemia in chronic kidney disease Qualifiers: Chronic kidney disease stage: on chronic dialysis Qualified Code(s): N18.6 - End stage renal disease; D63.1 - Anemia in chronic kidney disease; Z99.2 - Dependence on renal dialysis (5) HTN (hypertension) Qualifiers: Hypertension type: essential hypertension Qualified Code(s): I10 - Essential (primary) hypertension (6) Diabetes mellitus Qualifiers: Diabetes mellitus type: type 2 Diabetes mellitus mcc insulin use: with mcc use Diabetes mellitus complication status: with kidney complications Diabetes mellitus complication detail: with chronic kidney disease Chronic kidney disease stage: on chronic dialysis Qualified Code(s): E11.22 - Type 2 diabetes mellitus with diabetic chronic kidney disease; N18.6 - End stage renal disease; 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
--- NOTE | 2017-10-05 11:17 | Podiatry Progress Note ---
Date of Encounter: 10/05/17 Time of Encounter: 10:10 - Assessment and Plan (1) Diabetic wet gangrene of the foot Current Visit: Yes Status: Acute Left foot wet gangrene s/p partial first ray amputation open Reviewed surgical procedure with patient and course of treatment. reviewed wound cultures. There is no active bleeding. Discussed again with patient this is a staged procedure and if the wound continues to do well and tissue viable could consider repair/flap closure of the wound possibly mid week. No guarantees were made as to the outcome that he would not lose more of his foot or that it could be salvaged. For now he will continue the IV antibiotics. I do recommend getting an ID consult for antibiotic recommendations for discharge. Heel weight bearing on the left foot. f/u physical therapy. Advised patient to call his pain management doctors office tomorrow and tell them he is in the hospital. Did discuss with patient if he needs letter confirming he is in the hospital we could provide this. Subjective Principal diagnosis: wet gangrene Interval history: s/p open partial first ray ampuation for wet gangrene of the left foot. Denies experiencing f/c/n/v/sob/cp. Bandage did bleed through and was changed once overnight. patient worried about missing his pain management appt on Friday. Objective - Vital Signs Vital Signs: Vital Signs Temp Pulse Resp BP Pulse Ox 10/05/17 10:58 97.9 F 62 18 126/58 95 10/05/17 06:59 98.1 F 64 16 121/62 97 10/05/17 04:57 97.5 F L 66 16 117/69 93 10/04/17 23:43 97.5 F L 66 16 140/64 94 10/04/17 20:58 97.5 F L 72 16 155/74 93 10/04/17 16:30 97.4 F L 74 18 156/73 94 10/04/17 11:20 97.8 F 63 18 122/55 91 Intake and Output 10/04/17 10/05/17 10/05/17 23:59 07:59 15:59 Intake Total 340 / 340 240 / 240 Balance 340 / 340 240 / 240 Intake: IV Fluids 100 / 100 Zosyn 3.375 GM In 0.9 % Sodium 100 / 100 Chloride (Mini-Bag +) 100 ML @ 25 mls/hr IVPB Q12HR [facility] Rx#: [id number] Oral 240 / 240 240 / 240 Other: Meal Dinner Breakfast Percent of Meal Consumed 50% 100% Weight 81.7 kg Blood Glucose* 323 329 138 - Exam Exam: Well-developed and nourished male in no acute distress Capillary refill time less than 3 seconds remaining 4 digits of the left foot. There is no active bleeding. There is no strikethrough on the bandage either. No purulence expressed. No erythema of the skin. No fluctuance. First ray amputation site is open. Wound margins are viable. DP pulse is palpable. Mild edema. Absent protective sensation. No pain with palpation of surgical site. - Lab Result Diagrams: 10/05/17 03:53 10/05/17 03:53 Labs: Abnormal lab results RBC 2.56 M/mcL (4.19-5.50) L 10/05/17 03:53 Hgb 8.6 g/dL (12.9-16.9) L 10/05/17 03:53 Hct 25.9 % (37.5-50.1) L 10/05/17 03:53 MCV 101.2 fL (83.0-100.0) H 10/05/17 03:53 MCH 33.6 pg (28.0-33.3) H 10/05/17 03:53 Lymphocytes # 0.5 K/mcL (0.6-4.6) L 10/05/17 03:53 Sodium 134 mEq/L (136-145) L 10/05/17 03:53 Chloride 92 mEq/L (98-107) L 10/05/17 03:53 Carbon Dioxide 31 mEq/L (23-29) H 10/05/17 03:53 BUN 26 mg/dL (6-20) H 10/05/17 03:53 Creatinine 6.89 mg/dL (0.70-1.30) H 10/05/17 03:53 Est GFR ( Amer) 10 (> 60) L 10/05/17 03:53 Est GFR (Non-Af Amer) 8 (> 60) L 10/05/17 03:53 BUN/Creatinine Ratio 4 (6-26) L 10/05/17 03:53 Glucose 316 mg/dL (70-105) H 10/05/17 03:53 POC Glucose 203 mg/dL (70-99) H 10/03/17 21:07 Hemoglobin A1c 6.3 % (-5.6) H 10/04/17 05:19 Microbiology, Last 48 Hours 10/04/17 08:25 Surgical Biopsy Culture - Preliminary Left Great Toe 10/04/17 08:25 Surgical Biopsy Culture - Preliminary Left Great Toe 10/04/17 08:25 Surgical Biopsy Culture - Preliminary Left Great Toe - VTE Documentation of Mechanical Device: Graduated compression elastic hosiery Consult Discharge Plan - Plan Referrals: Kacie Lopez CNP [Primary Care Provider] -
[2017-10-06] MEDS: *HR* Heparin 5,000 UNIT/ML VIAL SQ SCH ×2 (05:58→16:53)
[2017-10-06] MEDS: Piperacillin/Tazobactam 3.375 GM in 0.9 % Sodium Chloride Mini Bag 100 ML IVPB SCH ×2 (05:58→18:47)
[2017-10-06 06:47] LABS: Basophils % 0.5 %; Eosinophils # 0.4 K/mcL (0.0-0.6); Eosinophils % 5.4 %; Hematocrit 22.4 % (37.5-50.1); Hemoglobin 7.4 g/dL (12.9-16.9); Immature Granulocytes % 1.8 % (0-4); Lymphocytes # 0.9 K/mcL (0.6-4.6); Lymphocytes % 12.6 %; Mean Corpuscular Hemoglobin 32.9 pg (28.0-33.3); Mean Corpuscular Volume 99.6 fL (83.0-100.0); Mean Platelet Volume 8.9 fL (9.4-12.4); Monocytes # 0.5 K/mcL (0.0-1.3); Monocytes % 6.6 %; Neutrophils # 5.4 K/mcL (1.6-8.9); Platelet Count 197 K/mcL (140-400); Red Blood Count 2.25 M/mcL (4.19-5.50); Red Cell Distribution Width 12.1 % (11.5-14.5); Segmented Neutrophils % 73.1 %
[2017-10-06 07:05] LABS: Albumin 3.4 g/dL (3.5-5.7)
[2017-10-06 07:07] LABS: Potassium 4.1 mEq/L (3.5-5.1)
--- NOTE | 2017-10-06 07:38 | Internal Med Progress Note ---
<Miguel Ángel Holguin T - Last Filed: 10/06/17 18:24> Hospitalist Progress Note - Encounter Date of Encounter: 10/06/17 - Exam Vitals: Temp Pulse Resp BP Pulse Ox 98.4 F 71 17 142/68 93 10/06/17 15:15 10/06/17 15:15 10/06/17 15:15 10/06/17 15:15 10/06/17 15:15 - Assessment and Plan (1) Diabetic wet gangrene of the foot Current Visit: Yes Status: Acute (2) ESRD (end stage renal disease) Current Visit: Yes Status: Chronic (3) Anemia in chronic kidney disease Current Visit: Yes Status: Chronic (4) DVT prophylaxis Current Visit: Yes Status: Acute (5) HTN (hypertension) Current Visit: Yes Status: Chronic (6) Diabetes mellitus Current Visit: Yes Status: Chronic - Time Spent with Patient Total time spent is greater than 50% in coordination of care (as documented) at patient's floor/unit and/or counseling patient: Internal Medicine: Result - Labs CBC & Chem 7: 10/06/17 11:54 10/06/17 06:18 Labs: Short CBC 10/06/17 10/06/17 10/06/17 Range/Units 06:18 10:35 11:54 WBC 7.4 6.8 (4.3-11.1) K/mcL Hgb 7.4 L 7.4 L 7.1 L (12.9-16.9) g/dL Hct 22.4 L 22.5 L 21.4 L (37.5-50.1) % Plt Count 197 174 (140-400) K/mcL Neutrophils # 5.4 5.4 (1.6-8.9) K/mcL BMP 10/06/17 10/06/17 06:18 06:18 Sodium 134 L 130 L Potassium 4.1 4.0 Chloride 92 L 96 L Carbon Dioxide 30 H 30 H BUN 36 H 36 H Creatinine 8.49 H 8.59 H Glucose 159 H 162 H Calcium 9.0 9.0 Liver Function 10/06/17 Range/Units 06:18 Albumin 3.4 L (3.5-5.7) g/dL Consult Discharge Plan - Plan Referrals: Kacie Lopez CNP [Primary Care Provider] - - Attending Attestation I have personally seen and examined this patient on 10/06/17 and reviewed her chart and labs, including medications, I have discussed plan of care with the resident physician, whose documentation reflect our plan of care. With the additions/exceptions set forth below. 57-year-old male with end-stage renal disease and diabetes mellitus, hypertension. Presented with wet gangrene of the left big toe. Postop day 2 status post amputation of the big toe. According to podiatry, he would have staged procedure next week. On vancomycin and Zosyn. Pending final culture reports. Infectious disease has been consulted. Monitor HB, transfuse for Hb <, continue current management Rest of details as in the resident physician's documentation <Thomas Leach - Last Filed: 10/06/17 18:39> Hospitalist Progress Note - Encounter Date of Encounter: 10/06/17 Time of Encounter: 09:30 - Subjective Interval History: is a 57 yo male with a PMHx of - Exam Vitals: Temp Pulse Resp BP Pulse Ox 97.9 F 63 16 144/80 96 10/06/17 07:07 10/06/17 07:07 10/06/17 07:07 10/06/17 07:07 10/06/17 07:07 Exam: VSS gen: NAD HEENT: Moist roal mucosa, anicteric, not pale Chest: CTAB heart: S1, S2 only, no m/g/r Abd: Soft, not tender Extremities: wound dressing in left foot clean, slightly soaked neuro: AAOX3, no focal deficits - Assessment and Plan (1) Diabetic wet gangrene of the foot Current Visit: Yes Status: Acute Assessment and Plan: - likely due to his Hx of diabetes, he patient is POD3 s/p partial left 1st ray amputation, currently in no acute distress - currently he is on day 4 of Van and Zosyn , wound dressing looks good , no evidence of any active bleeding at the moment , although nurse did endorse there was bleeding to site twice overnight. Left great toe biopsy cultures are pending. Trendinh H&H q6h. last Hb 7.1 , will transfuse if < 7.0 - As per ID recommendation adjust dose of zosyn from 3.3375 g q8h to 2.25 g q12h , - as per the podiatry if the wound look good , they plan is to repair/flap close the wound possible friday (2) ESRD (end stage renal disease) Current Visit: Yes Status: Chronic Assessment and Plan: - patient has a Hx of ESRD. gets dialyzed MWF - currently BUN: 36, Cr: 8.59 - avoid nephrotoxic medications, renally dose medications, Nephrology on board (3) Anemia of chronic disease Current Visit: Yes Status: Acute Assessment and Plan: - likely due to his Hx of gangrene of the foot, ESRD - Hb currently trending down : 10.6-> 9.7-> 8,6-> 7.1. No evidence of actively bleeding from the L toe (patient is POD 3 from surgery) - tending H&H q6h, transfuse if Hb < 7 (4) HTN (hypertension) Current Visit: Yes Status: Chronic Assessment and Plan: has a Hx of HTN - currently on losartan 100mg -most recent BP was 151/66 but that was because patient did not get his PO meds because he was going to dialysis - will monitor his BP later during the day. (5) Diabetes mellitus Current Visit: Yes Status: Chronic Assessment and Plan: -patient has a Hx of diabetes, most recent A1c :6.3 - currently on low dose sliding scale insulin, holding his home medications for now - target glucose range 140-180 DVT Prophylaxis: SQ heparin - Time Spent with Patient Total time spent is greater than 50% in coordination of care (as documented) at patient's floor/unit and/or counseling patient: Internal Medicine: Result - Labs CBC & Chem 7: 10/06/17 11:54 10/06/17 06:18 Labs: Short CBC 10/06/17 Range/Units 06:18 WBC 7.4 (4.3-11.1) K/mcL Hgb 7.4 L (12.9-16.9) g/dL Hct 22.4 L (37.5-50.1) % Plt Count 197 (140-400) K/mcL Neutrophils # 5.4 (1.6-8.9) K/mcL BMP 10/06/17 10/06/17 06:18 06:18 Sodium 134 L 130 L Potassium 4.1 4.0 Chloride 92 L 96 L Carbon Dioxide 30 H 30 H BUN 36 H 36 H Creatinine 8.49 H 8.59 H Glucose 159 H 162 H Calcium 9.0 9.0 Liver Function 10/06/17 Range/Units 06:18 Albumin 3.4 L (3.5-5.7) g/dL - Impressions Impressions Foot X-Ray 10/05/17 11:21 IMPRESSION: Recent postsurgical change of amputation at the 1st metatarsal. D/ / Jeff Stone MD / Jeff Stone MD Interpreting Provider: Jeff Stone MD - VTE Documentation of Mechanical Device: Graduated compression elastic hosiery <Miguel Ángel Holguin - Last Filed: 10/06/17 18:24> (3) Anemia in chronic kidney disease Qualifiers: Chronic kidney disease stage: on chronic dialysis Qualified Code(s): N18.6 - End stage renal disease; D63.1 - Anemia in chronic kidney disease; Z99.2 - Dependence on renal dialysis (5) HTN (hypertension) Qualifiers: Hypertension type: essential hypertension Qualified Code(s): I10 - Essential (primary) hypertension (6) Diabetes mellitus Qualifiers: Diabetes mellitus type: type 2 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 Diabetes mellitus complication status: with kidney complications Diabetes mellitus complication detail: with chronic kidney disease Chronic kidney disease stage: on chronic dialysis Qualified Code(s): E11.22 - Type 2 diabetes mellitus with diabetic chronic kidney disease; N18.6 - End stage renal disease; Z79.4 - USP (current) use of insulin; Z99.2 - Dependence on renal dialysis <Thomas Leach - Last Filed: 10/06/17 18:39> (4) HTN (hypertension) Qualifiers: Hypertension type: essential hypertension Qualified Code(s): I10 - Essential (primary) hypertension (5) Diabetes mellitus Qualifiers: Diabetes mellitus type: type 2 Diabetes mellitus fdc insulin use: with fdc use Diabetes mellitus complication status: with kidney complications Diabetes mellitus complication detail: with chronic kidney disease Chronic kidney disease stage: on chronic dialysis Qualified Code(s): E11.22 - Type 2 diabetes mellitus with diabetic chronic kidney disease; N18.6 - End stage renal disease; Z79.4 - USP (current) use of insulin; Z99.2 - Dependence on renal dialysis
[2017-10-06] MEDS ORDERED: 0.9 % Sodium Chloride 250 ML IVC PRN (07:51)
[2017-10-06] MEDS ORDERED: 0.9 % Sodium Chloride 1,000 ML ONE (07:55)
[2017-10-06] MEDS ORDERED: 0.9 % Sodium Chloride 1,000 ML PRIME SCH (08:00)
[2017-10-06] MEDS: Insulin LISPRO 300 UNITS/3 ML VIAL SQ SCH ×4 (08:02→17:00)
[2017-10-06] MEDS: Calcium Acetate 667 MG CAPSULE PO SCH ×4 (08:05→17:01)
[2017-10-06] MEDS: Aspirin 81 MG TAB.CHEW PO SCH (08:08)
[2017-10-06] MEDS: *HR* OxyCODONE Immed Rel 5 MG TABLET PO PRN ×2 (08:08→19:32)
[2017-10-06] MEDS: Renal Vitamin 1 CAP CAPSULE PO SCH (08:09)
--- NOTE | 2017-10-06 10:38 | Nephrology Progress Note ---
Date of Encounter: 10/06/17 Time of Encounter: 10:36 - Assessment and Plan (1) ESRD (end stage renal disease) Current Visit: Yes Status: Chronic HD MWF. Renal vitamins. Renal dose medications. Renal diet. Additional dialysis and ultrafiltration as needed. (2) HTN (hypertension) Current Visit: Yes Status: Chronic Pressure is controlled, 144/80. Adjust medications as needed. Qualifiers: Hypertension type: essential hypertension Qualified Code(s): I10 - Essential (primary) hypertension (3) Anemia in chronic kidney disease Current Visit: Yes Status: Chronic Transfuse as needed. Qualifiers: Chronic kidney disease stage: on chronic dialysis Qualified Code(s): N18.6 - End stage renal disease; D63.1 - Anemia in chronic kidney disease; Z99.2 - Dependence on renal dialysis (4) Diabetic wet gangrene of the foot Current Visit: Yes Status: Acute Per podiatry. (5) Diabetes mellitus Current Visit: Yes Status: Chronic Per primary team. 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 Is concerned his foot has "been bleeding" a lot and he would like his Hgb rechecked. Objective - Vital Signs Vital signs: Vital Signs Temp Pulse Resp BP Pulse Ox 10/06/17 07:07 97.9 F 63 16 144/80 96 10/06/17 04:07 99.6 F 73 16 120/71 97 10/06/17 03:59 97.8 F 66 16 131/78 95 10/06/17 00:04 97.8 F 60 16 130/69 99 10/05/17 19:10 98.2 F 63 16 114/61 94 10/05/17 15:15 97.6 F 64 16 125/53 92 10/05/17 10:58 97.9 F 62 18 126/58 95 Intake and Output 10/05/17 10/06/1718 23:59 07:59 15:59 Intake Total 460 / 460 Balance 460 / 460 Intake: IV Fluids 100 / 100 Zosyn 3.375 GM In 0.9 % Sodium 100 / 100 Chloride (Mini-Bag +) 100 ML @ 25 mls/hr IVPB Q12HR [facility] Rx#: [id number] Oral 360 / 360 Other: Meal Dinner Percent of Meal Consumed 100% Weight 82.4 kg Blood Glucose* 236 169 Patient Weight 10/06/17 23:59 Weight 82.4 kg - General Appearance General appearance: Present: well-developed, well-nourished EENT: Present: ATNC, hearing intact, vision intact Respiratory: Present: clear Cardiology: Present: no edema, normal S1, normal S2 Dialysis Vascular Access: Arteriovenous Fistula thrill: Yes bruit: Yes Gastrointestinal: Present: normoactive bowel sounds, no tenderness, no guarding Integumentary: Present: no rash, warm and dry Neurologic: Present: alert and oriented x3 Additional Comments: Anam noted to be C/D/I to LLE. Psychiatric: Present: mood/affect appropriate, cooperative - Lab 10/06/17 10:35 10/06/17 06:18 Most recent lab results Calcium 9.0 mg/dL (8.6-10.3) 10/06/17 06:18 Phosphorus 5.0 mg/dL (2.7-4.5) H 10/06/17 06:18 - VTE Documentation of Mechanical Device: Venous foot pump, device Consult Discharge Plan - Plan Referrals: Kacie Lopez CNP [Primary Care Provider] -
[2017-10-06 10:52] LABS: Basophils % 0.4 %; Eosinophils # 0.3 K/mcL (0.0-0.6); Eosinophils % 4.5 %; Hematocrit 22.5 % (37.5-50.1); Hemoglobin 7.4 g/dL (12.9-16.9); Immature Granulocytes % 1.9 % (0-4); Lymphocytes # 0.6 K/mcL (0.6-4.6); Lymphocytes % 9.2 %; Mean Corpuscular HGB Conc 32.9 g/dL (31.6-35.5); Mean Corpuscular Hemoglobin 33.5 pg (28.0-33.3); Mean Corpuscular Volume 101.8 fL (83.0-100.0); Mean Platelet Volume 8.7 fL (9.4-12.4); Monocytes # 0.3 K/mcL (0.0-1.3); Monocytes % 4.4 %; Neutrophils # 5.4 K/mcL (1.6-8.9); Platelet Count 174 K/mcL (140-400); Red Blood Count 2.21 M/mcL (4.19-5.50); Segmented Neutrophils % 79.6 %
[2017-10-06 12:13] LABS: Hematocrit 21.4 % (37.5-50.1); Hemoglobin 7.1 g/dL (12.9-16.9)
[2017-10-06] MEDS: NIFEdipine XL (24 HR) 60 MG TAB.ER.24 PO SCH (14:16)
[2017-10-06] MEDS: Bumetanide 1 MG TABLET PO SCH (14:16)
--- NOTE | 2017-10-06 16:58 | Infectious Disease Consult ---
Date of Encounter: 10/06/17 Time of Encounter: 13:20 Assessment and Plan (1) Diabetic wet gangrene of the foot Status: Acute Assessment and plan: Causative organism: unknown. Gram positive cocci, gram positive rods. Status post partial left 1st ray amputation on 10/04/17. Wound cultures 10/04/17 preliminary report shows moderate gram positive cocci and few gram positive rods. Blood cultures drawn 10/03/17 pending. Followup on cultures. Check ESR, CRP. await cultures to finalize Continue Vancomycin IV. Pharmacy to dose. Goal trough ~15. We will likely plan to continue Vancomycin for ease of administration with HD. Continue Zosyn IV. Adjust dosage from 3.375 grams q8h to 2.25 grams q12h. Duration of treatment likely 6 weeks, but will discuss with Podiatry. Monitor renal function and for drug toxicity and dose-adjust antibiotics. 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 Management per primary team. Qualifiers: Chronic kidney disease stage: on chronic dialysis Qualified Code(s): N18.6 - End stage renal disease; D63.1 - Anemia in chronic kidney disease; Z99.2 - Dependence on renal dialysis Infectious Disease HPI - Data of Consult Requesting Physician: Miguel Ángel Holguin MD Primary Care Provider: Kacie Lopez CNP - Consult Narrative History of present illness: Mr. Weaver is a 57 year old male with medical history of diabetes, HTN, and ESRD on hemodialysis. Patient was admitted to hospital on Oct 03 for diabetic wet gangrene on left big toe. Infectious Disease was consulted Oct 06 by Podiatry for antibiotic recommendations on discharge. Patient presented to emergency department on day of admission with complaint of needing surgery on infected left big toe. Patient was supposed to have surgery at [facility] that day but anesthesiologist cancelled due to multiple comorbidities, and was told to come to [facility]. Upon arrival to ED, patient was alert and oriented and hemodynamically stable without sepsis. He had leukocytosis with neutrophil predominance. Foot XR showed no gas gangrene. Patient was admitted to the hospital for further evaluation with Podiatry consultation. Since admission, patient was started on Vanco and Zosyn. Blood cultures obtained x2 with results pending. Nephrology was consulted to assist with ESRD on dialysis. Podiatry was consulted and on Oct 04, patient underwent partial left 1st ray amputation that was left open for wound drainage with wound vac. Wound culture preliminary report reveal many WBC, moderate gram positive cocci, and few gram positive rods. Amputation to be a staged procedure. If wound does well, consider repair/flap closure of wound. Or further amputation. Foot XR 10/05 reveals recent postsurgical change of amputation at 1st metatarsal. WBC has improved over the weekend, and today is 6.8. Today, patient seen and examined while getting hemodialysis. According to nurse , patient complained of bleeding from wound over the weekend. Was placed on bedrest which resolved bleeding. Today, when stood to use commode, wound bled again. Patient complains of some pain at foot, ankle, and leg, but denies pain at wound site. Denies fever, chills, abdominal pain, nausea, vomiting, diarrhea , swelling. CC: Miguel Ángel Holguin MD Past Med Surg Social Fam HX - Past Medical History Medical history: diabetes, dialysis, hypertension, renal disease Additional medical history: heart cath 2018 Psychiatric history: no psych history - Past Surgical History Surgical History: appendectomy, other Additional surgical history: R FOOT SURGERY - Social History Smoking Status: Never smoker Smokeless Tobacco Status: No Alcohol use: none Drug use: none Infectious Disease-CN:Meds Calcium Acetate [Phos-LO] 2,001 mg PO TIDWM 02/09/15 [History] Aspirin 81 mg PO DAILY 10/03/17 [History] Atorvastatin [Lipitor] 40 mg PO HS 10/03/17 [History] Bumetanide [Bumex] 1 mg PO DAILY 10/03/17 [History] Docusate Sodium [Dok] 100 mg PO BID 10/03/17 [History] Isosorbide DInitrate [Isosorbide Dinitrate] 50 mg PO TID 10/03/17 [History] Losartan Potassium [Cozaar] 100 mg PO DAILY 10/03/17 [History] NIFEdipine [Nifedipine ER] 60 mg PO DAILY 10/03/17 [History] OxyCODONE Immed Rel [Roxicodone 15 MG] 15 mg PO BID 10/03/17 [History] Renal Vitamin [Renal Caps Softgel] 1 cap PO DAILY 10/03/17 [History] 3 Allergy/AdvReac Type Severity Reaction Status Date / Time No Known Allergies Allergy Verified 07/18/16 08:43 All systems: reviewed and no additional remarkable complaints except as stated Review of systems: 1o point ROS done, pertinent postiives and negatives mentioned in the HPI Exam - Constitutional Vitals: Temp Pulse Resp BP Pulse Ox 98.4 F 71 17 142/68 93 10/06/17 15:15 10/06/17 15:15 10/06/17 15:15 10/06/17 15:15 10/06/17 15:15 General appearance: average body habitus, cooperative, no acute distress, no febrile - Head Head exam: Present: atraumatic, normal inspection, normocephalic - Eye Eye exam: Present: EOMI, normal appearance, PERRL Pupils: Present: normal accommodation - ENT ENT exam: Present: mucous membranes moist, normal oropharynx - Neck Neck exam: Present: normal inspection - Respiratory Respiratory exam: Present: CTAB. Absent: rales, respiratory distress, rhonchi, wheezes - Cardiovascular Cardiovascular exam: Present: RRR, +S1, +S2 - GI/Abdominal GI/Abdominal exam: Present: normal bowel sounds, soft. Absent: distended, tenderness - Extremities Exam Extremities exam: Present: normal inspection. Absent: joint swelling, pedal edema, tenderness - Neurological Exam Neurological exam: Present: alert, CN II-XII intact, oriented X3. Absent: no focal deficits - Psychiatric Psychiatric exam: Present: normal affect, normal mood - Skin Skin exam: Present: dry, intact, normal color, warm Infectious Disease CN: Results - Labs CBC & Chem 7: 10/06/17 18:29 10/06/17 06:18 Cultures: Cultures 10/04/17 08:25 Surgical Biopsy Culture - Preliminary Left Great Toe 10/04/17 08:25 Surgical Biopsy Culture - Preliminary Left Great Toe 10/04/17 08:25 Surgical Biopsy Culture - Preliminary Left Great Toe Serology: Serology 10/03/17 Range/Units 11:53 Hep Bs Antigen Nonreactive (Nonreactive) Hep Bs Antibody 0.00 mIU/mL - VTE Documentation of Mechanical Device: Graduated compression elastic hosiery Consult Discharge Plan - Plan Referrals: Kacie Lopez, GAURAV [Primary Care Provider] - - Attending Attestation I examined this patient and my medical decision-making was reviewed with the Resident Physician. I agree with the documented findings, disposition and treatment plan as described except to the extent set forth below. Patient is a 56-year-old gentleman who presented to [place] on 10/03/2017 with a wet gangrene of the foot left hallux, we are consulted on 10/06/2017 for antibiotic recommendations. Patient is a 57-year-old gentleman who has diabetes mellitus type 2, end-stage renal disease on hemodialysis, hypertension and coronary artery disease apparently has had a left big toe gangrene and was scheduled as an outpatient at [facility] for amputation but anesthesia [facility] refused to operate because of his high risk condition. Patient then came to [place] for evaluation. On further questioning apparently patient was in usual state of health until about 7 days prior to admission when he developed a blister on his big toe that continues to get wider than the foot got infected. Patient denied any fevers, chills, night sweats. Patient denies any chest pain or shortness of breath that. Patient denied any nausea or vomiting or diarrhea. Patient denies any other symptoms. Since admission, patient has been febrile with a MAXIMUM TEMPERATURE of 102.2. No tachycardia and no tachypnea. Presenting labs revealed a WBC of 13,000 with neutrophilic predominance 81% no bands. Patients electrolytes were off antibiotics 35 creatinine of 9. Patients hemoglobin A1c was 6.3. Lactic acid was checked and came back normal. Blood cultures were obtained on October 03 and are no growth to date. Wound culture on October 04 of the great left toe always been negative. On October 04 patient was taken to surgery by Dr. black where he had a are she will left first ray amputation. Purulence was noted intraoperatively at the level of the metatarsophalangeal joint surrounding the distal aspect of the first metatarsal and [place] nonviable tissue present. Intra-Op cultures and pathology were sent and are so far no growth. Patient was given 1 dose of vancomycin on October 03 and has been on Zosyn ever since. We are asked to evaluate the patients make further recommendations. At this point, will continue broad spectrum antibiotics with vancomycin and zosyn until cultures finalized gram stain intra op showing GPC and gram positive RODS (likely anaerobes?) once cultures finalize, will tailor/deescalate antibiotics goal vanc trough around 15 zosyn dosing q12 hrs pharmacy to help with dosing monitor labs and for drug toxicity duration of treatment depends on clinical picture but likely prolonged
--- NOTE | 2017-10-06 17:00 | Podiatry Progress Note ---
Date of Encounter: 10/06/17 Time of Encounter: 12:00 - Assessment and Plan (1) Diabetic wet gangrene of the foot Current Visit: Yes Status: Acute s/p Left foot wet gangrene s/p partial first ray amputation open- POD #2 Patient in dialysis at this time Dressing CDI Nurse reports there was bleeding to site twice overnight No active bleed at this time Patient to limit any weight bearing Will plan for 2nd debridement of closure of wound on Friday with Patient will need to be NPO after midnight on friday night Patient will either need to go to early AM dialysis on friday or late evening - surgery is scheduled between 1230 and 430- called and reported to nurse. Verbalized understanding Surgical site in stable condition at this time Adaptic, 4x4 and bulk dressing applied Elevate whenever possible Call with any issues or concerns Will continue to monitor. Subjective Principal diagnosis: esrd Interval history: Left foot wet gangrene s/p partial first ray amputation open- POD #2 Patient currently in dialysis Nurse Reports bleed x2 overnight- states that it bleeds whenever patient gets up. Patient has been on bedrest since episodes. States that it has not bled as he has not been up THere is a bulk dressing noted to foot- CDI at this time. Patient denies any fevers, chills, n/v or calf pain or shortness of breath. Objective - Vital Signs Vital Signs: Vital Signs Temp Pulse Resp BP Pulse Ox 10/06/17 15:15 98.4 F 71 17 142/68 93 10/06/17 13:45 97.5 F L 18 161/71 10/06/17 13:30 142/60 10/06/17 13:15 151/66 10/06/17 13:00 158/72 10/06/17 12:45 148/74 10/06/17 12:30 140/68 10/06/17 12:15 142/75 10/06/17 12:00 136/62 10/06/17 11:45 132/62 10/06/17 11:30 128/65 10/06/17 11:15 135/64 10/06/17 11:00 136/62 10/06/17 10:45 122/60 10/06/17 10:30 136/71 10/06/17 10:15 144/66 10/06/17 10:00 97.7 F 16 143/78 10/06/17 07:07 97.9 F 63 16 144/80 96 10/06/17 04:07 99.6 F 73 16 120/71 97 10/06/17 03:59 97.8 F 66 16 131/78 95 10/06/17 00:04 97.8 F 60 16 130/69 99 10/05/17 19:10 98.2 F 63 16 114/61 94 Intake and Output 10/06/17 10/06/17 10/06/17 07:59 15:59 23:59 Intake Total 600 / 600 Output Total 3600 / 3600 Balance -3000 / -3000 Intake: Oral 0 / 0 Intake, Rinseback and Flushes 600 / 600 Output: Total Dialysis (HD) Output 3600 / 3600 Other: Weight 82.4 kg Blood Glucose* 169 192 164 Hemodialysis Net Fluid Removed 3000 (mL) Patient Weight 10/06/17 23:59 Weight 82.4 kg - Exam Exam: Podiatry General Exam: General appearance: alert awake oriented X 3. Calm and pleasant, no acute distress.. Vascular: Pedal pulses +2/4 DP/PT , No evidence of cyanosis, pallor or rubor, Edema graded at 1+/4, Skin Temperature warm, No calf pain with manual compression. capillary refill time is immediate to remaining digits. Neurologic: Sensation intact with moderate touch Postop Exam: S/P open surgical site-- partial amp of first met- and debridement Open surgical site noted- dry adhered 4x4 to surgical site. exposure of remaining portion of met noted. Minimal surrounding edema and erythema to periwound and wound edges only. No ascending cellulitis.No active bleeding noted at this time. . - Lab Result Diagrams: 10/07/17 14:34 10/07/17 00:24 Labs: Abnormal lab results RBC 2.21 M/mcL (4.19-5.50) L 10/06/17 10:35 Hgb 7.1 g/dL (12.9-16.9) L 10/06/17 11:54 Hct 21.4 % (37.5-50.1) L 10/06/17 11:54 MCV 101.8 fL (83.0-100.0) H 10/06/17 10:35 MCH 33.5 pg (28.0-33.3) H 10/06/17 10:35 MPV 8.7 fL (9.4-12.4) L 10/06/17 10:35 Sodium 134 mEq/L (136-145) L 10/06/17 06:18 Chloride 92 mEq/L (98-107) L 10/06/17 06:18 Carbon Dioxide 30 mEq/L (23-29) H 10/06/17 06:18 BUN 36 mg/dL (6-20) H 10/06/17 06:18 Creatinine 8.49 mg/dL (0.70-1.30) H 10/06/17 06:18 Est GFR ( Amer) 8 (> 60) L 10/06/17 06:18 Est GFR (Non-Af Amer) 7 (> 60) L 10/06/17 06:18 BUN/Creatinine Ratio 4 (6-26) L 10/06/17 06:18 Glucose 159 mg/dL (70-105) H 10/06/17 06:18 POC Glucose 254 mg/dL (70-99) H 10/05/17 15:18 Hemoglobin A1c 6.3 % (-5.6) H 10/04/17 05:19 Phosphorus 5.0 mg/dL (2.7-4.5) H 10/06/17 06:18 Albumin 3.4 g/dL (3.5-5.7) L 10/06/17 06:18 Microbiology, Last 48 Hours 10/04/17 08:25 Surgical Biopsy Culture - Preliminary Left Great Toe 10/04/17 08:25 Surgical Biopsy Culture - Preliminary Left Great Toe 10/04/17 08:25 Surgical Biopsy Culture - Preliminary Left Great Toe - VTE Documentation of Mechanical Device: Graduated compression elastic hosiery Consult Discharge Plan - Plan Referrals: aKcie Lopez, GAURAV [Primary Care Provider] -
[2017-10-06 19:16] LABS: Hematocrit 21.3 % (37.5-50.1); Hemoglobin 7.1 g/dL (12.9-16.9)
[2017-10-06] MEDS: Insulin DETEMIR 100 UNIT/ML X5UNITS SQ SCH (21:40)
[2017-10-07 00:42] LABS: Basophils % 0.3 %; Eosinophils # 0.4 K/mcL (0.0-0.6); Eosinophils % 5.6 %; Hematocrit 22.3 % (37.5-50.1); Hemoglobin 7.3 g/dL (12.9-16.9); Immature Granulocytes % 2.1 % (0-4); Lymphocytes # 0.7 K/mcL (0.6-4.6); Mean Corpuscular HGB Conc 32.7 g/dL (31.6-35.5); Mean Corpuscular Volume 103.7 fL (83.0-100.0); Mean Platelet Volume 9.2 fL (9.4-12.4); Monocytes # 0.5 K/mcL (0.0-1.3); Monocytes % 7.2 %; Neutrophils # 5.3 K/mcL (1.6-8.9); Platelet Count 189 K/mcL (140-400); Red Blood Count 2.15 M/mcL (4.19-5.50); Segmented Neutrophils % 74.8 %
[2017-10-07 00:59] LABS: Calcium 8.9 mg/dL (8.6-10.3); Potassium 4.6 mEq/L (3.5-5.1)
[2017-10-07] MEDS ORDERED: 0.9 % Sodium Chloride 250 ML ONE ×2 (01:22→03:39)
--- NOTE | 2017-10-07 02:33 | Event Note ---
Date of Encounter: 10/07/17 Time of Encounter: 13:30 Patient says around 1am he thinks he rolled over in bed banged his because he started to see some blood come through the bandage. Called by hospitalist. I came in to see the patient. he is AOx3. compression dressing was on with some strikethrough. Removed bandage. There was oozing of blood. Applied Javed and Fibrillar to the wound. Pressure held for 5 minutes. Compressive bandage was then applied. no weight bearing on the left foot. Nurse elevated foot of bed.
[2017-10-07] MEDS: Insulin LISPRO 300 UNITS/3 ML VIAL SQ SCH ×5 (03:18→21:06)
--- NOTE | 2017-10-07 06:14 | Podiatry Progress Note ---
Date of Encounter: 10/07/17 Time of Encounter: 05:50 - Assessment and Plan (1) Diabetic wet gangrene of the foot Current Visit: Yes Status: Acute Left foot wet gangrene s/p partial first ray amputation open discussed current cultures and that pathology is still pending. skin edges remain viable. recommend patient stay non-weight bearing for now on the left lower extremity. there is no active bleeding at this time. bandage is clean, dry and intact. no physical therapy. taking to OR tentatively Friday for repair of wound left foot. nature of this procedure, risks vs benefits potential complications and consequences of surgery and his condition discussed. no guarantees made as to the outcome of any procedure or that his foot could be salvaged. NPO after midnight. Subjective Principal diagnosis: esrd Interval history: s/p open partial first ray ampuation for wet gangrene of the left foot. bumped foot overnight. I came in to change the bandage and examine the wound, there was some oozing from the wound. there is no strikethrough on the bandage currently. patient says he feels fine. Objective - Vital Signs Vital Signs: Vital Signs Temp Pulse Resp BP Pulse Ox 10/07/17 04:40 98.9 F 61 18 10/07/17 04:25 98.9 F 10/07/17 04:16 98.9 F 61 18 137/66 10/07/17 04:11 98.9 F 61 17 137/66 96 10/07/17 01:55 97.7 F 62 16 148/81 97 10/07/17 01:40 98.1 F 65 18 128/69 100 10/07/17 00:28 98.2 F 63 17 142/70 93 10/06/17 19:55 98.6 F 72 17 155/79 90 10/06/17 15:15 98.4 F 71 17 142/68 93 10/06/17 13:45 97.5 F L 18 161/71 10/06/17 13:30 142/60 10/06/17 13:15 151/66 10/06/17 13:00 158/72 10/06/17 12:45 148/74 10/06/17 12:30 140/68 10/06/17 12:15 142/75 10/06/17 12:00 136/62 10/06/17 11:45 132/62 10/06/17 11:30 128/65 10/06/17 11:15 135/64 10/06/17 11:00 136/62 10/06/17 10:45 122/60 10/06/17 10:30 136/71 10/06/17 10:15 144/66 10/06/17 10:00 97.7 F 16 143/78 10/06/17 07:07 97.9 F 63 16 144/80 96 Intake and Output 10/06/17 10/06/17 10/07/17 15:59 23:59 07:59 Intake Total 700 / 700 480 / 480 400 / 400 Output Total 3600 / 3600 Balance -2900 / -2900 480 / 480 400 / 400 Intake: IV Fluids 100 / 100 Zosyn 3.375 GM In 0.9 % Sodium 100 / 100 Chloride (Mini-Bag +) 100 ML @ 25 mls/hr IVPB Q12HR ALEX Rx#: [id number] Oral 0 / 0 480 / 480 Blood Product 400 / 400 Rbcs Leuko Poor As-1 Unit 50 / 50 [id number] Rbcs Leuko Poor As-1 Unit 350 / 350 [id number] Intake, Rinseback and Flushes 600 / 600 Output: Total Dialysis (HD) Output 3600 / 3600 Other: Meal Dinner Percent of Meal Consumed 100% Blood Glucose* 192 197 Hemodialysis Net Fluid Removed 3000 (mL) - Exam Exam: left foot bandage is clean, dry and intact. no strikethrough.ankle and leg are warm to touch. patient has diminished protective sensation. skin at earlier dressing change had no erythema and there was no purulent drainge. foot was warm to touch as well. - Lab Result Diagrams: 10/07/17 00:24 10/07/17 00:24 Labs: Abnormal lab results RBC 2.15 M/mcL (4.19-5.50) L 10/07/17 00:24 Hgb 7.3 g/dL (12.9-16.9) L 10/07/17 00:24 Hct 22.3 % (37.5-50.1) L 10/07/17 00:24 MCV 103.7 fL (83.0-100.0) H 10/07/17 00:24 MCH 34.0 pg (28.0-33.3) H 10/07/17 00:24 MPV 9.2 fL (9.4-12.4) L 10/07/17 00:24 Sodium 135 mEq/L (136-145) L 10/07/17 00:24 Chloride 96 mEq/L (98-107) L 10/07/17 00:24 Carbon Dioxide 34 mEq/L (23-29) H 10/07/17 00:24 Creatinine 4.59 mg/dL (0.70-1.30) H 10/07/17 00:24 Est GFR ( Amer) 16 (> 60) L 10/07/17 00:24 Est GFR (Non-Af Amer) 13 (> 60) L 10/07/17 00:24 BUN/Creatinine Ratio 3 (6-26) L 10/07/17 00:24 Glucose 183 mg/dL (70-105) H 10/07/17 00:24 POC Glucose 197 mg/dL (70-99) H 10/06/17 19:56 Hemoglobin A1c 6.3 % (-5.6) H 10/04/17 05:19 Phosphorus 5.0 mg/dL (2.7-4.5) H 10/06/17 06:18 Albumin 3.4 g/dL (3.5-5.7) L 10/06/17 06:18 Microbiology, Last 48 Hours 10/04/17 08:25 Surgical Biopsy Culture - Preliminary Left Great Toe 10/04/17 08:25 Surgical Biopsy Culture - Preliminary Left Great Toe 10/04/17 08:25 Surgical Biopsy Culture - Preliminary Left Great Toe - VTE Documentation of Mechanical Device: Graduated compression elastic hosiery Consult Discharge Plan - Plan Referrals: Kacie Lopez, MAMMALOGIST [Primary Care Provider] -
[2017-10-07] MEDS: *HR* Heparin 5,000 UNIT/ML VIAL SQ SCH ×2 (08:48→18:43)
[2017-10-07] MEDS: Calcium Acetate 667 MG CAPSULE PO SCH ×3 (08:50→17:10)
[2017-10-07] MEDS: Aspirin 81 MG TAB.CHEW PO SCH (08:50)
--- NOTE | 2017-10-07 08:58 | Internal Med Progress Note ---
<Thomas Leach - Last Filed: 10/07/17 17:34> Hospitalist Progress Note - Encounter Date of Encounter: 10/07/17 Time of Encounter: 10:00 - Subjective Interval History: is a 57 yo male with a PMHx of diabetes, hypertension, ESRD who was admitted for blister of the left big toe status post surgery. His postoperative day 4. Some mild bleeding from his foot. Podiatry intervened and applied some artist and fibula to the wound. Compressive bandages applied and currently instructions have been made for no weightbearing on the left foot. The foot has been elevated off bed. Patient is scheduled to go for his wound repair surgery sometime tomorrow afternoon. NPO after midnight. - Exam Vitals: Temp Pulse Resp BP Pulse Ox 97.9 F 65 18 147/75 90 10/07/17 07:17 10/07/17 07:17 10/07/17 07:17 10/07/17 07:17 10/07/17 07:17 Exam: VSS gen: NAD HEENT: Moist roal mucosa, anicteric, not pale Chest: CTAB heart: S1, S2 only, no m/g/r Abd: Soft, not tender Extremities: wound dressing in left foot clean. neuro: AAOX3, no focal deficits - Assessment and Plan (1) Diabetic wet gangrene of the foot Current Visit: Yes Status: Acute Assessment and Plan: 10/07 - Likely due to his history of diabetes, is POD 4 s/p left first ray amputation . Had an episode of bleeding last night , H&H stable . - Currently is on day 5 of vancomycin and Zosyn, patient's surgical biopsy cultures are pending. patient's left foot has been elevated off the bed to minimize future bleeding. - As per podiatry the plan is to do the wound repair sometime tomorrow afternoon. ESR and CRP pending. NPO after midnight. 10/06 - likely due to his Hx of diabetes, he patient is POD3 s/p partial left 1st ray amputation, currently in no acute distress - currently he is on day 4 of Van and Zosyn , wound dressing looks good , no evidence of any active bleeding at the moment , although nurse did endorse there was bleeding to site twice overnight. Left great toe biopsy cultures are pending. Trendinh H&H q6h. last Hb 7.1 , will transfuse if < 7.0 - As per ID recommendation adjust dose of zosyn from 3.3375 g q8h to 2.25 g q12h , - as per the podiatry if the wound look good , they plan is to repair/flap close the wound possible friday afternoon (2) ESRD (end stage renal disease) Current Visit: Yes Status: Chronic Assessment and Plan: - Patient has a history of ESRD. Gets dialyzed MWF. - Currently BUN: 15, Cr: 4.59. Patient came in with a creatinine of 9 on admission. - Continue to monitor electrolytes. (3) Anemia of chronic disease Current Visit: Yes Status: Acute Assessment and Plan: - likely due to his Hx of gangrene of the foot, ESRD - Hb currently trending down : 10.6-> 9.7-> 8,6-> 7.1-> 7.3 No evidence of actively bleeding from the L toe currently (patient is POD 4 from partial left ray amputation) - tending H&H q6h, transfuse if Hb < 7 (4) HTN (hypertension) Current Visit: Yes Status: Chronic Assessment and Plan: -has a Hx of HTN - currently on losartan 100mg -most recent BP was 154/71, patient is on 100 mg losartan, increased Nifedipine XL from 60-90 mg. - will monitor his BP later during the day. (5) Diabetes mellitus Current Visit: Yes Status: Chronic Assessment and Plan: - Patient has a history of diabetes, most recent A1C 6.3 - Currently on low-dose sliding scale insulin, holding his home meds for now. -Target glucose range 140-180. - Time Spent with Patient Total time spent is greater than 50% in coordination of care (as documented) at patient's floor/unit and/or counseling patient: Internal Medicine: Result - Labs CBC & Chem 7: 10/07/17 14:34 10/07/17 00:24 Labs: Short CBC 10/06/17 10/06/17 10/06/17 Range/Units 10:35 11:54 18:29 WBC 6.8 (4.3-11.1) K/mcL Hgb 7.4 L 7.1 L 7.1 L (12.9-16.9) g/dL Hct 22.5 L 21.4 L 21.3 L (37.5-50.1) % Plt Count 174 (140-400) K/mcL Neutrophils # 5.4 (1.6-8.9) K/mcL 10/07/17 Range/Units 00:24 WBC 7.1 (4.3-11.1) K/mcL Hgb 7.3 L (12.9-16.9) g/dL Hct 22.3 L (37.5-50.1) % Plt Count 189 (140-400) K/mcL Neutrophils # 5.3 (1.6-8.9) K/mcL BMP 10/07/17 00:24 Sodium 135 L Potassium 4.6 Chloride 96 L Carbon Dioxide 34 H BUN 15 Creatinine 4.59 H Glucose 183 H Calcium 8.9 - VTE Documentation of Mechanical Device: Graduated compression elastic hosiery Consult Discharge Plan - Plan Referrals: Kacie Lopez, DENITRATOR [Primary Care Provider] - <Nicolás Aguilar - Last Filed: 10/07/17 19:34> Hospitalist Progress Note - Encounter Date of Encounter: 10/07/17 - Exam Vitals: Temp Pulse Resp BP Pulse Ox 98.2 F 50 17 152/79 96 10/07/17 15:17 10/07/17 15:17 10/07/17 15:17 10/07/17 15:17 10/07/17 15:17 - Assessment and Plan (1) ESRD (end stage renal disease) Current Visit: Yes Status: Chronic (2) HTN (hypertension) Current Visit: Yes Status: Chronic (3) Anemia in chronic kidney disease Current Visit: Yes Status: Chronic (4) DVT prophylaxis Current Visit: Yes Status: Acute (5) Diabetic wet gangrene of the foot Current Visit: Yes Status: Acute (6) Diabetes mellitus Current Visit: Yes Status: Chronic - Time Spent with Patient Total time spent is greater than 50% in coordination of care (as documented) at patient's floor/unit and/or counseling patient: Internal Medicine: Result - Labs CBC & Chem 7: 10/07/17 14:34 10/07/17 00:24 Labs: Short CBC 10/07/17 10/07/17 Range/Units 00:24 14:34 WBC 7.1 (4.3-11.1) K/mcL Hgb 7.3 L 7.7 L (12.9-16.9) g/dL Hct 22.3 L 23.5 L (37.5-50.1) % Plt Count 189 (140-400) K/mcL Neutrophils # 5.3 (1.6-8.9) K/mcL BMP 10/07/17 00:24 Sodium 135 L Potassium 4.6 Chloride 96 L Carbon Dioxide 34 H BUN 15 Creatinine 4.59 H Glucose 183 H Calcium 8.9 - Attending Attestation I examined this patient and my medical decision-making was reviewed with the Resident Physician on 10/07/17. I agree with the documented findings, disposition and treatment plan as described except to the extent set forth below. Mr Weaver is currently admitted for acute gangrene of foot. He remains moderate to high risk due to potential for worsening clinical status. Mr Weaver is resting at this time. He has no new issues. Tolerating abx. No GI issues. No fever or chills. Exam alert Comfortable Mucus membranes dry Heart distant Lungs clear Dressing intact I/P 1. Diabetic foot ulcer with gangrene 2. ESRD Further diagnoses and plan as above. <Thomas Leach - Last Filed: 10/07/17 17:34> (4) HTN (hypertension) Qualifiers: Hypertension type: essential hypertension Qualified Code(s): I10 - Essential (primary) hypertension (5) Diabetes mellitus Qualifiers: Diabetes mellitus type: type 2 Diabetes mellitus halfway insulin use: with halfway use Diabetes mellitus complication status: with kidney complications Diabetes mellitus complication detail: with chronic kidney disease Chronic kidney disease stage: on chronic dialysis Qualified Code(s): E11.22 - Type 2 diabetes mellitus with diabetic chronic kidney disease; N18.6 - End stage renal disease; Z79.4 - intermediate accountant (current) use of insulin; Z99.2 - Dependence on renal dialysis <Nicolás Aguilar - Last Filed: 10/07/17 19:34> (2) HTN (hypertension) Qualifiers: Hypertension type: essential hypertension Qualified Code(s): I10 - Essential (primary) hypertension (3) Anemia in chronic kidney disease Qualifiers: Chronic kidney disease stage: on chronic dialysis Qualified Code(s): N18.6 - End stage renal disease; D63.1 - Anemia in chronic kidney disease; Z99.2 - Dependence on renal dialysis (6) Diabetes mellitus Qualifiers: Diabetes mellitus type: type 2 Diabetes mellitus halfway insulin use: with assistant terminal manager use Diabetes mellitus complication status: with kidney complications Diabetes mellitus complication detail: with chronic kidney disease Chronic kidney disease stage: on chronic dialysis Qualified Code(s): E11.22 - Type 2 diabetes mellitus with diabetic chronic kidney disease; N18.6 - End stage renal disease; Z79.4 - [facility] (current) use of insulin; Z99.2 - Dependence on renal dialysis
[2017-10-07] MEDS: Renal Vitamin 1 CAP CAPSULE PO SCH (08:59)
[2017-10-07] MEDS: Bumetanide 1 MG TABLET PO SCH (08:59)
[2017-10-07] MEDS: NIFEdipine XL (24 HR) 60 MG TAB.ER.24 PO SCH (08:59)
[2017-10-07] MEDS: Piperacillin/Tazobactam 3.375 GM in 0.9 % Sodium Chloride Mini Bag 100 ML IVPB SCH ×2 (09:05→17:13)
--- NOTE | 2017-10-07 10:20 | Nephrology Progress Note ---
Date of Encounter: 10/07/17 Time of Encounter: 10:18 - Assessment and Plan (1) ESRD (end stage renal disease) Current Visit: Yes Status: Chronic HD MWF. HD completed yesterday, does not want HD tomorrow because he has surgery scheduled. Renal vitamins. Renal dose medications. Renal diet. Additional dialysis and ultrafiltration as needed. (2) HTN (hypertension) Current Visit: Yes Status: Chronic Pressure is controlled, 147/75. Adjust medications as needed. Qualifiers: Hypertension type: essential hypertension Qualified Code(s): I10 - Essential (primary) hypertension (3) Anemia in chronic kidney disease Current Visit: Yes Status: Chronic Transfuse as needed. Qualifiers: Chronic kidney disease stage: on chronic dialysis Qualified Code(s): N18.6 - End stage renal disease; D63.1 - Anemia in chronic kidney disease; Z99.2 - Dependence on renal dialysis (4) Diabetic wet gangrene of the foot Current Visit: Yes Status: Acute Per podiatry. Patient states he is going back to OR tomorrow. (5) Diabetes mellitus Current Visit: Yes Status: Chronic Per primary team. Qualifiers: Diabetes mellitus type: type 2 Diabetes mellitus jail insulin use: with terminal block assembler use Diabetes mellitus complication status: with kidney complications Diabetes mellitus complication detail: with chronic kidney disease Chronic kidney disease stage: on chronic dialysis Qualified Code(s) : E11.22 - Type 2 diabetes mellitus with diabetic chronic kidney disease; N18.6 - End stage renal disease; Z79.4 - superintendent marine oil terminal (current) use of insulin; Z99.2 - Dependence on renal dialysis Subjective Principal diagnosis: esrd Interval history: Pt seen and examined doing well. No CP/SOB, nausea, vomiting, diarrhea. Objective - Vital Signs Vital signs: Vital Signs Temp Pulse Resp BP Pulse Ox 10/07/17 07:17 97.9 F 65 18 147/75 90 10/07/17 04:40 98.9 F 61 18 10/07/17 04:25 98.9 F 10/07/17 04:16 98.9 F 61 18 137/66 10/07/17 04:11 98.9 F 61 17 137/66 96 10/07/17 01:55 97.7 F 62 16 148/81 97 10/07/17 01:40 98.1 F 65 18 128/69 100 10/07/17 00:28 98.2 F 63 17 142/70 93 10/06/17 19:55 98.6 F 72 17 155/79 90 10/06/17 15:15 98.4 F 71 17 142/68 93 10/06/17 13:45 97.5 F L 18 161/71 10/06/17 13:30 142/60 10/06/17 13:15 151/66 10/06/17 13:00 158/72 10/06/17 12:45 148/74 10/06/17 12:30 140/68 10/06/17 12:15 142/75 10/06/17 12:00 136/62 10/06/17 11:45 132/62 10/06/17 11:30 128/65 10/06/17 11:15 135/64 10/06/17 11:00 136/62 10/06/17 10:45 122/60 10/06/17 10:30 136/71 Intake and Output 10/06/17 10/07/17 10/07/17 23:59 07:59 15:59 Intake Total 580 / 580 400 / 400 360 / 360 Balance 580 / 580 400 / 400 360 / 360 Intake: IV Fluids 100 / 100 Zosyn 3.375 GM In 0.9 % Sodium 100 / 100 Chloride (Mini-Bag +) 100 ML @ 25 mls/hr IVPB Q12HR [facility] Rx#: [id number] Oral 480 / 480 360 / 360 Blood Product 400 / 400 Rbcs Leuko Poor As-1 Unit 50 / 50 [id number] Rbcs Leuko Poor As-1 Unit 350 / 350 [id number] Other: Meal Dinner Breakfast Percent of Meal Consumed 100% 100% Blood Glucose* 197 129 - General Appearance General appearance: Present: well-developed, well-nourished EENT: Present: ATNC, hearing intact, vision intact Neck: Present: supple Respiratory: Present: clear Cardiology: Present: no edema, normal S1, normal S2 Dialysis Vascular Access: Arteriovenous Fistula thrill: Yes bruit: Yes Gastrointestinal: Present: normoactive bowel sounds, no tenderness, no guarding Integumentary: Present: no rash, warm and dry Neurologic: Present: alert and oriented x3 Additional Comments: LLE bandage C/D/I - Lab 10/07/17 00:24 10/07/17 00:24 Most recent lab results Calcium 8.9 mg/dL (8.6-10.3) 10/07/17 00:24 Phosphorus 5.0 mg/dL (2.7-4.5) H 10/06/17 06:18 - VTE Documentation of Mechanical Device: Graduated compression elastic hosiery Consult Discharge Plan - Plan Referrals: Kacie Lopez CNP [Primary Care Provider] -
--- NOTE | 2017-10-07 10:36 | Infectious Disease Progress No ---
Date of Encounter: 10/07/17 Time of Encounter: 08:55 - Assessment and Plan (1) Diabetic wet gangrene of the foot Current Visit: Yes Status: Acute Causative organism: unknown. Gram positive cocci, gram positive rods. Status post partial left 1st ray amputation on 10/04/17. Episodes of wound bleeding. Hb remains stable, today is 7.3. Tentatively scheduled for OR wound repair by Podiatry tomorrow. ESR and CRP elevated at 71 and 71. Blood cultures drawn 10/03/17 are NGTD. Wound cultures 10/04/17 preliminary report shows moderate gram positive cocci and few gram positive rods. Await cultures to finalize. Continue Vancomycin IV. Pharmacy to dose. Goal trough ~15. We will likely plan to continue Vancomycin for ease of administration with HD. Continue Zosyn IV 2.25 grams q12h. Duration of treatment likely 6 weeks, but will discuss with Podiatry. Monitor renal function and for drug toxicity and dose-adjust antibiotics. (2) Diabetes mellitus Current Visit: Yes Status: Chronic Diagnosed in 2007. Adequately controlled. Last HbA1C 6.3. Qualifiers: Diabetes mellitus type: type 2 Diabetes mellitus care home insulin use: with termination clerk use Diabetes mellitus complication status: with kidney complications Diabetes mellitus complication detail: with chronic kidney disease Chronic kidney disease stage: on chronic dialysis Qualified Code(s) : E11.22 - Type 2 diabetes mellitus with diabetic chronic kidney disease; N18.6 - End stage renal disease; Z79.4 - skilled nursing (current) use of insulin; Z99.2 - Dependence on renal dialysis (3) End-stage renal disease on hemodialysis Current Visit: Yes Status: Acute Secondary to diabetic nephropathy. Has been on dialysis since 2014. Fistula RLE. Nephrology consulted and following. (4) HTN (hypertension) Current Visit: Yes Status: Chronic Qualifiers: Hypertension type: essential hypertension Qualified Code(s): I10 - Essential (primary) hypertension (5) Anemia in chronic kidney disease Current Visit: Yes Status: Chronic Hb stable at this time. Qualifiers: Chronic kidney disease stage: on chronic dialysis Qualified Code(s): N18.6 - End stage renal disease; D63.1 - Anemia in chronic kidney disease; Z99.2 - Dependence on renal dialysis - Subjective Interval history: Patient seen and examined. Patient is resting comfortably in bed. States he's "fine." Had episode of wound bleeding after "bumping" foot last night. Podiatry stopped bleed and rebandaged. Left foot is well-dressed without evidence of active bleeding. Patient is tentatively scheduled for OR wound repair tomorrow. Patient reports "some pain" in foot. Also reports diarrhea "three times" yesterday. Took imodium, denies diarrhea today. Denies fever, chills, chest pain , shortness of breath, nausea, vomiting, swelling. Infect Dis PN-Objective Data - Labs CBC & Chem 7: 10/08/17 05:47 10/08/17 05:47 Labs: Laboratory Results - last 24 hr 10/04/17 10/05/17 10/06/17 05:19 19:25 07:09 WBC RBC Hgb Hct MCV MCH MCHC RDW Plt Count MPV Immature Gran % Seg Neutrophils % Lymphocytes % Monocytes % Eosinophils % Basophils % Neutrophils # Lymphocytes # Monocytes # Eosinophils # Basophils # Sodium Potassium Chloride Carbon Dioxide BUN Creatinine Est GFR ( Amer) Est GFR (Non-Af Amer) BUN/Creatinine Ratio Glucose POC Glucose 236 H 164 H Calculated Osmolality Calcium Blood Type O POSITIVE Antibody Screen NEGATIVE Crossmatch See Detail 10/06/17 10/06/17 10/06/17 10:35 11:14 11:54 WBC 6.8 RBC 2.21 L Hgb 7.4 L 7.1 L Hct 22.5 L 21.4 L MCV 101.8 H MCH 33.5 H MCHC 32.9 RDW 12.0 Plt Count 174 MPV 8.7 L Immature Gran % 1.9 Seg Neutrophils % 79.6 Lymphocytes % 9.2 Monocytes % 4.4 Eosinophils % 4.5 Basophils % 0.4 Neutrophils # 5.4 Lymphocytes # 0.6 Monocytes # 0.3 Eosinophils # 0.3 Basophils # 0.0 Sodium Potassium Chloride Carbon Dioxide BUN Creatinine Est GFR ( Amer) Est GFR (Non-Af Amer) BUN/Creatinine Ratio Glucose POC Glucose 192 H Calculated Osmolality Calcium Blood Type Antibody Screen Crossmatch 10/06/17 10/06/17 10/06/17 16:43 18:29 19:56 WBC RBC Hgb 7.1 L Hct 21.3 L MCV MCH MCHC RDW Plt Count MPV Immature Gran % Seg Neutrophils % Lymphocytes % Monocytes % Eosinophils % Basophils % Neutrophils # Lymphocytes # Monocytes # Eosinophils # Basophils # Sodium Potassium Chloride Carbon Dioxide BUN Creatinine Est GFR ( Amer) Est GFR (Non-Af Amer) BUN/Creatinine Ratio Glucose POC Glucose 164 H 197 H Calculated Osmolality Calcium Blood Type Antibody Screen Crossmatch 10/07/17 10/07/17 00:24 00:24 WBC 7.1 RBC 2.15 L Hgb 7.3 L Hct 22.3 L MCV 103.7 H MCH 34.0 H MCHC 32.7 RDW 12.0 Plt Count 189 MPV 9.2 L Immature Gran % 2.1 Seg Neutrophils % 74.8 Lymphocytes % 10.0 Monocytes % 7.2 Eosinophils % 5.6 Basophils % 0.3 Neutrophils # 5.3 Lymphocytes # 0.7 Monocytes # 0.5 Eosinophils # 0.4 Basophils # 0.0 Sodium 135 L Potassium 4.6 Chloride 96 L Carbon Dioxide 34 H BUN 15 Creatinine 4.59 H Est GFR ( Amer) 16 L Est GFR (Non-Af Amer) 13 L BUN/Creatinine Ratio 3 L Glucose 183 H POC Glucose Calculated Osmolality 286 Calcium 8.9 Blood Type Antibody Screen Crossmatch Cultures: Cultures 10/04/17 08:25 Surgical Biopsy Culture - Preliminary Left Great Toe 10/04/17 08:25 Surgical Biopsy Culture - Preliminary Left Great Toe 10/04/17 08:25 Surgical Biopsy Culture - Preliminary Left Great Toe Serology 10/03/17 Range/Units 11:53 Hep Bs Antigen Nonreactive (Nonreactive) Hep Bs Antibody 0.00 mIU/mL Exam - Constitutional Vitals: Temp Pulse Resp BP Pulse Ox 97.9 F 65 18 147/75 90 10/07/17 07:17 10/07/17 07:17 10/07/17 07:17 10/07/17 07:17 10/07/17 07:17 General appearance: average body habitus, cooperative, no acute distress - Head Head exam: Present: atraumatic, normal inspection, normocephalic - Eye Eye exam: Present: EOMI, normal appearance, PERRL Pupils: Present: normal accommodation - ENT ENT exam: Present: mucous membranes moist, normal oropharynx - Neck Neck exam: Present: normal inspection - Respiratory Respiratory exam: Present: CTAB. Absent: rales, respiratory distress, rhonchi, wheezes - Cardiovascular Cardiovascular exam: Present: RRR, +S1, +S2 - GI/Abdominal GI/Abdominal exam: Present: normal bowel sounds, soft. Absent: distended, tenderness - Extremities Exam Extremities exam: Present: normal inspection. Absent: joint swelling, pedal edema, tenderness Additional comments: Left foot well-dressed. No evidence of bleeding. - Neurological Exam Neurological exam: Present: alert, oriented X3, no focal deficits - Psychiatric Psychiatric exam: Present: normal affect, normal mood - Skin Skin exam: Present: dry, intact, normal color, warm - VTE Documentation of Mechanical Device: Graduated compression elastic hosiery Consult Discharge Plan - Plan Referrals: Kacie Lopez, GAURAV [Primary Care Provider] - - Attending Attestation I examined this patient and my medical decision-making was reviewed with the Resident Physician. I agree with the documented findings, disposition and treatment plan as described except to the extent set forth below.
[2017-10-07] MEDS ORDERED: Piperacillin/Tazobactam 2.25 GM in 0.9 % Sodium Chloride Mini Bag 100 ML IVPB SCH (13:10)
[2017-10-07] MEDS ORDERED: NIFEdipine XL (24 HR) 60 MG TAB.ER.24 PO SCH (14:38)
[2017-10-07 14:45] LABS: Hematocrit 23.5 % (37.5-50.1); Hemoglobin 7.7 g/dL (12.9-16.9)
[2017-10-07] MEDS ORDERED: NIFEdipine XL (24 HR) 30 MG TAB.ER.24 PO ONE (14:54)
[2017-10-07 20:15] LABS: Hematocrit 23.1 % (37.5-50.1); Hemoglobin 7.6 g/dL (12.9-16.9)
[2017-10-07] MEDS: *HR* OxyCODONE Immed Rel 5 MG TABLET PO PRN (21:04)
[2017-10-07] MEDS: Insulin DETEMIR 100 UNIT/ML X5UNITS SQ SCH (21:05)
[2017-10-08] MEDS: Piperacillin/Tazobactam 3.375 GM in 0.9 % Sodium Chloride Mini Bag 100 ML IVPB SCH (05:21)
[2017-10-08] MEDS: *HR* Heparin 5,000 UNIT/ML VIAL SQ SCH ×2 (05:22→18:47)
[2017-10-08 06:19] LABS: Basophils % 0.4 %; Eosinophils # 0.4 K/mcL (0.0-0.6); Eosinophils % 4.1 %; Hematocrit 23.2 % (37.5-50.1); Hemoglobin 7.8 g/dL (12.9-16.9); Immature Granulocytes % 2.1 % (0-4); Lymphocytes # 0.9 K/mcL (0.6-4.6); Mean Corpuscular HGB Conc 33.6 g/dL (31.6-35.5); Mean Corpuscular Hemoglobin 32.6 pg (28.0-33.3); Monocytes # 0.6 K/mcL (0.0-1.3); Monocytes % 5.7 %; Neutrophils # 7.7 K/mcL (1.6-8.9); Platelet Count 160 K/mcL (140-400); Red Blood Count 2.39 M/mcL (4.19-5.50); Red Cell Distribution Width 15.5 % (11.5-14.5); Segmented Neutrophils % 78.7 %
[2017-10-08 06:28] LABS: Mean Corpuscular Volume 97.1 fL (83.0-100.0)
[2017-10-08 06:45] LABS: Calcium 8.9 mg/dL (8.6-10.3); Potassium 4.9 mEq/L (3.5-5.1)
[2017-10-08] MEDS ORDERED: 0.9 % Sodium Chloride 1,000 ML ONE (07:10)
[2017-10-08] MEDS: NIFEdipine XL (24 HR) 30 MG TAB.ER.24 PO SCH (09:41)
[2017-10-08] MEDS: Bumetanide 1 MG TABLET PO SCH (09:41)
[2017-10-08] MEDS: Renal Vitamin 1 CAP CAPSULE PO SCH (09:42)
[2017-10-08] MEDS: Insulin LISPRO 300 UNITS/3 ML VIAL SQ SCH ×4 (09:43→22:09)
[2017-10-08] MEDS: Calcium Acetate 667 MG CAPSULE PO SCH ×3 (09:44→18:47)
[2017-10-08] MEDS: Aspirin 81 MG TAB.CHEW PO SCH (09:44)
--- NOTE | 2017-10-08 09:53 | Internal Med Progress Note ---
<Thomas Leach - Last Filed: 10/08/17 16:14> Hospitalist Progress Note - Encounter Date of Encounter: 10/08/17 Time of Encounter: 10:00 - Subjective Interval History: 09/07 No acute events overnight. Patient is scheduled to undergo his left wound flap/ repair later this afternoon. He is hemodynamically stable. His dialysis has been rescheduled for tomorrow. Patient endorses no bleeding at the site of his left dressing, no discharge. He is neurovascularly intact. His left toe biopsy was positive for staph aureus, Pseudomonas, Escherichia coli and E faecalis. As per the ID, Zosyn will be discontinued and we will start him on cefempime. Patient can continue Vancomycin IV. Goal trough ~15 09/06 is a 57 yo male with a PMHx of diabetes, hypertension, ESRD who was admitted for blister of the left big toe status post surgery. His postoperative day 4. Some mild bleeding from his foot. Podiatry intervened and applied some artist and fibula to the wound. Compressive bandages applied and currently instructions have been made for no weight bearing on the left foot. The foot has been elevated off bed. Patient is scheduled to go for his wound repair surgery sometime tomorrow afternoon. NPO after midnight. - Exam Vitals: Temp Pulse Resp BP Pulse Ox 98.4 F 70 18 108/58 92 10/08/17 06:49 10/08/17 06:49 10/08/17 06:49 10/08/17 06:49 10/08/17 06:49 Exam: VSS Gen: NAD HEENT: Moist oral mucosa, anicteric, not pale Chest: CTAB Heart: S1, S2 only, no m/g/r Abd: Soft, not tender Extremities: wound dressing in left foot clean. Neuro: AAOX3, no focal deficits - Assessment and Plan (1) Diabetic wet gangrene of the foot Current Visit: Yes Status: Acute Assessment and Plan: 10/08 - Likely due to his Hx of diabetes, is POD 5 s/p left rat amputation. Patient is neurovascularly intact and is scheduled for wound flap/repair today. - ESR : 71, CRP: 71. Patient afebrile, WBC: 9.8. Surgical biopsy cultures from Left foot were positive for S aureus, E faecelis, Pseudomonas, E Coli. As per the ID, Zosyn will be discontinued and we will start him on cefempime. Patient can continue Vancomycin IV. Goal trough ~15 - H&H stable. Continue to monitor. 10/07 - Likely due to his history of diabetes, is POD 4 s/p left first ray amputation . Had an episode of bleeding last night , H&H stable . - Currently is on day 5 of vancomycin and Zosyn, patient's surgical biopsy cultures are pending. patient's left foot has been elevated off the bed to minimize future bleeding. - As per podiatry the plan is to do the wound repair sometime tomorrow afternoon. ESR and CRP pending. NPO after midnight. 10/06 - likely due to his Hx of diabetes, he patient is POD3 s/p partial left 1st ray amputation, currently in no acute distress - currently he is on day 4 of Van and Zosyn , wound dressing looks good , no evidence of any active bleeding at the moment , although nurse did endorse there was bleeding to site twice overnight. Left great toe biopsy cultures are pending. Trendinh H&H q6h. last Hb 7.1 , will transfuse if < 7.0 - As per ID recommendation adjust dose of zosyn from 3.3375 g q8h to 2.25 g q12h , - as per the podiatry if the wound look good , they plan is to repair/flap close the wound possible friday (2) ESRD (end stage renal disease) Current Visit: Yes Status: Chronic Assessment and Plan: - Patient has a history of ESRD. Gets dialyzed MWF. - Currently BUN: 32, Cr: 7.00. His hemodialysis has been rescheduled for tomorrow because of surgery. According to Nephrology if the patient is still not admitted, they will call to arrange an output HD on . - Continue to monitor electrolytes. (3) Anemia of chronic disease Current Visit: Yes Status: Acute Assessment and Plan: - likely due to his Hx of gangrene of the foot, ESRD - Hb currently: 10.6-> 9.7-> 8,6-> 7.1-> 7.3-> 7.8. No evidence of actively bleeding from the L toe currently (patient is POD 5 from partial left ray amputation) - tending H&H q6h, transfuse if Hb < 7 (4) HTN (hypertension) Current Visit: Yes Status: Chronic Assessment and Plan: -has a Hx of HTN - currently on losartan 100mg -most recent BP was 108/58, patient is on 100 mg losartan, increased Nifedipine XL from 60-90 mg. - will continue to monitor. (5) Diabetes mellitus Current Visit: Yes Status: Chronic Assessment and Plan: - Patient has a history of diabetes, most recent A1C 6.3 - Currently on low-dose sliding scale insulin, holding his home meds for now. -Target glucose range 140-180. Currently glucose :153 - Time Spent with Patient Total time spent is greater than 50% in coordination of care (as documented) at patient's floor/unit and/or counseling patient: Internal Medicine: Result - Labs CBC & Chem 7: 10/08/17 05:47 10/08/17 05:47 Labs: Short CBC 10/07/17 10/07/17 10/08/17 Range/Units 14:34 20:01 05:47 WBC 9.8 (4.3-11.1) K/mcL Hgb 7.7 L 7.6 L 7.8 L (12.9-16.9) g/dL Hct 23.5 L 23.1 L 23.2 L (37.5-50.1) % Plt Count 160 (140-400) K/mcL Neutrophils # 7.7 (1.6-8.9) K/mcL BMP 10/07/17 10/08/17 00:24 05:47 Sodium 135 L 135 L Potassium 4.6 4.9 Chloride 96 L 97 L Carbon Dioxide 34 H 31 H BUN 15 32 H Creatinine 4.59 H 7.00 H Glucose 183 H 153 H Calcium 8.9 8.9 - VTE Documentation of Mechanical Device: Venous foot pump, device Consult Discharge Plan - Plan Referrals: Kacie Lopez CNP [Primary Care Provider] - <Nicolás Aguilar - Last Filed: 10/08/17 19:19> Hospitalist Progress Note - Encounter Date of Encounter: 10/08/17 - Exam Vitals: Temp Pulse Resp BP Pulse Ox 97.4 F L 63 16 148/68 90 10/08/17 18:50 10/08/17 10:44 10/08/17 18:50 10/08/17 18:50 10/08/17 10:44 - Assessment and Plan (1) ESRD (end stage renal disease) Current Visit: Yes Status: Chronic (2) HTN (hypertension) Current Visit: Yes Status: Chronic (3) Anemia in chronic kidney disease Current Visit: Yes Status: Chronic (4) DVT prophylaxis Current Visit: Yes Status: Acute (5) Diabetic wet gangrene of the foot Current Visit: Yes Status: Acute (6) Diabetes mellitus Current Visit: Yes Status: Chronic - Time Spent with Patient Total time spent is greater than 50% in coordination of care (as documented) at patient's floor/unit and/or counseling patient: Internal Medicine: Result - Labs CBC & Chem 7: 10/08/17 05:47 10/08/17 05:47 Labs: Short CBC 10/07/17 10/08/17 Range/Units 20:01 05:47 WBC 9.8 (4.3-11.1) K/mcL Hgb 7.6 L 7.8 L (12.9-16.9) g/dL Hct 23.1 L 23.2 L (37.5-50.1) % Plt Count 160 (140-400) K/mcL Neutrophils # 7.7 (1.6-8.9) K/mcL BMP 10/08/17 05:47 Sodium 135 L Potassium 4.9 Chloride 97 L Carbon Dioxide 31 H BUN 32 H Creatinine 7.00 H Glucose 153 H Calcium 8.9 - Attending Attestation I examined this patient and my medical decision-making was reviewed with the Resident Physician on 10/08/17. I agree with the documented findings, disposition and treatment plan as described except to the extent set forth below. Mr Weaver is currently admitted for infected diabetic foot and ESRD. He remains moderate to high risk due to potential for worsening clinical status. Mr Weaver is feeling OK. He is to have surgery tomorrow. No fever or chills. No new issues today. Exam alert Comfortable Mucus membranes dry Heart not tachy Lungs diminished Abd soft Dressing intact I/P 1. Gangrene 2. ESRD Further diagnoses and plan as above. <Thomas Leach - Last Filed: 10/08/17 16:14> (4) HTN (hypertension) Qualifiers: Hypertension type: essential hypertension Qualified Code(s): I10 - Essential (primary) hypertension (5) Diabetes mellitus Qualifiers: Diabetes mellitus type: type 2 Diabetes mellitus keno terminal operator insulin use: with custodial use Diabetes mellitus complication status: with kidney complications Diabetes mellitus complication detail: with chronic kidney disease Chronic kidney disease stage: on chronic dialysis Qualified Code(s): E11.22 - Type 2 diabetes mellitus with diabetic chronic kidney disease; N18.6 - End stage renal disease; 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 <Nicolás Aguilar - Last Filed: 10/08/17 19:19> (2) HTN (hypertension) Qualifiers: Hypertension type: essential hypertension Qualified Code(s): I10 - Essential (primary) hypertension (3) Anemia in chronic kidney disease Qualifiers: Chronic kidney disease stage: on chronic dialysis Qualified Code(s): N18.6 - End stage renal disease; D63.1 - Anemia in chronic kidney disease; Z99.2 - Dependence on renal dialysis (6) Diabetes mellitus Qualifiers: Diabetes mellitus type: type 2 Diabetes mellitus keno terminal operator insulin use: with keno terminal operator use Diabetes mellitus complication status: with kidney complications Diabetes mellitus complication detail: with chronic kidney disease Chronic kidney disease stage: on chronic dialysis Qualified Code(s): E11.22 - Type 2 diabetes mellitus with diabetic chronic kidney disease; N18.6 - End stage renal disease; Z79.4 - [facility] (current) use of insulin; Z99.2 - Dependence on renal dialysis
--- NOTE | 2017-10-08 11:20 | Nephrology Progress Note ---
Date of Encounter: 10/08/17 Time of Encounter: 09:30 - Assessment and Plan (1) ESRD (end stage renal disease) Current Visit: Yes Status: Chronic He is not overtly hyperkalemic or uremic, and since he's scheduled for more surgery today, I'll bump his HD tomorrow (if he's still admitted). I can also call to arrange an outpt HD on and then he may resume his MWF schedule as an outpt. (2) HTN (hypertension) Current Visit: Yes Status: Chronic Adjust medications as needed. Qualifiers: Hypertension type: essential hypertension Qualified Code(s): I10 - Essential (primary) hypertension (3) Anemia in chronic kidney disease Current Visit: Yes Status: Chronic I added Aranesp yesterday for a Hgb goal of 10-11. Transfusion parameters as per primary team. Qualifiers: Chronic kidney disease stage: on chronic dialysis Qualified Code(s): N18.6 - End stage renal disease; D63.1 - Anemia in chronic kidney disease; Z99.2 - Dependence on renal dialysis (4) Diabetic wet gangrene of the foot Current Visit: Yes Status: Acute Appreciate Podiatry. (5) Diabetes mellitus Current Visit: Yes Status: Chronic Qualifiers: Diabetes mellitus type: type 2 Diabetes mellitus intermediate designer insulin use: with penitentiary use Diabetes mellitus complication status: with kidney complications Diabetes mellitus complication detail: with chronic kidney disease Chronic kidney disease stage: on chronic dialysis Qualified Code(s) : E11.22 - Type 2 diabetes mellitus with diabetic chronic kidney disease; N18.6 - End stage renal disease; Z79.4 - longterm (current) use of insulin; Z99.2 - Dependence on renal dialysis Subjective Principal diagnosis: esrd Interval history: Pt was s/e earlier today. He reported that he was to have surgery today. He hopes to discharge soon and asked if HD could be bumped to tomorrow. He did not affirm N/V/D or CP. Objective - Vital Signs Vital signs: Vital Signs Temp Pulse Resp BP Pulse Ox 10/08/17 10:44 98.5 F 63 16 108/55 90 10/08/17 09:54 122/63 10/08/17 06:49 98.4 F 70 18 108/58 92 10/08/17 03:46 98.7 F 63 16 120/52 93 08/28/18 23:56 98.7 F 64 16 100/41 92 10/07/17 20:37 99.0 F 74 16 152/78 93 10/07/17 15:17 98.2 F 50 17 152/79 96 10/07/17 11:28 99.1 F 71 18 154/71 92 Intake and Output 10/07/17 10/08/17 10/08/17 23:59 07:59 15:59 Intake Total 340 / 340 0 / 0 Balance 340 / 340 0 / 0 Intake: IV Fluids 100 / 100 Zosyn 3.375 GM In 0.9 % Sodium 100 / 100 Chloride (Mini-Bag +) 100 ML @ 25 mls/hr IVPB Q12HR ALEX Rx#: [id number] Oral 240 / 240 0 / 0 Other: Meal Dinner NPO Percent of Meal Consumed 100% 0% Weight 82.1 kg Blood Glucose* 215 - General Appearance General appearance: Present: well-developed, well-nourished, appears started age EENT: Present: ATNC, PERRL, mucous membranes moist Neck: Present: supple Respiratory: Present: clear Cardiology: Present: no edema, regular rate, regular rhythm, normal S1, normal S2 Dialysis Vascular Access: Arteriovenous Fistula thrill: Yes bruit: Yes Gastrointestinal: Present: normoactive bowel sounds, no guarding Additional Comments: Left foot wound dressing C/D/I Neurologic: Present: no focal deficit, no asterixis, alert and oriented x3 Musculoskeletal: Present: no erythema, no cyanosis Psychiatric: Present: mood/affect appropriate, cooperative - Lab 10/08/17 05:47 10/08/17 05:47 Most recent lab results Calcium 8.9 mg/dL (8.6-10.3) 10/08/17 05:47 Phosphorus 5.0 mg/dL (2.7-4.5) H 10/06/17 06:18 - VTE Documentation of Mechanical Device: Venous foot pump, device Consult Discharge Plan - Plan Referrals: Kacie Lopez CNP [Primary Care Provider] -
[2017-10-08] MEDS ORDERED: Vancomycin 1,000 MG, Sodium Chloride IRRigation 1,000 ML IR ONE (11:35)
[2017-10-08] MEDS ORDERED: 0.9 % Sodium Chloride 250 ML IVC PRN (12:45)
[2017-10-08] MEDS: *HR* OxyCODONE Immed Rel 5 MG TABLET PO PRN ×2 (12:50→22:07)
--- NOTE | 2017-10-08 15:45 | Infectious Disease Progress No ---
Date of Encounter: 10/08/17 Time of Encounter: 08:50 - Assessment and Plan (1) Diabetic wet gangrene of the foot Current Visit: Yes Status: Acute Causative organism: unknown. Gram positive cocci, gram positive rods. POD#4 status post partial left 1st ray amputation on 10/04/17. Episodes of wound bleeding. Hb remains stable, today is 7.8. Surgery for wound repair today cancelled due to OR unexpectedly closing. ESR and CRP elevated at 71 and 71. Blood cultures drawn 10/03/17 are negative. Wound cultures 10/04/17 shows Staph aureus, Enterococcus faecalis, Pseudomonas, and E.coli. Sensitivities of each microorganism reviewed. Continue Vancomycin IV. Pharmacy to dose. Goal trough ~15. We will likely plan to continue Vancomycin for ease of administration with HD. Spoke with Nephrology on 10/08 who agrees to Vanco administration after dialysis. Stop Zosyn IV 2.25 grams q12h. Start Cefepime. Cefepime also to be administered after dialysis via PowerGlide that will be placed. Duration of treatment likely 6 weeks, but will discuss with Podiatry. Monitor renal function and for drug toxicity and dose-adjust antibiotics. (2) Diabetes mellitus Current Visit: Yes Status: Chronic Diagnosed in 2007. Adequately controlled. Last HbA1C 6.3. Qualifiers: Diabetes mellitus type: type 2 Diabetes mellitus alf insulin use: with supervisor intermediates use Diabetes mellitus complication status: with kidney complications Diabetes mellitus complication detail: with chronic kidney disease Chronic kidney disease stage: on chronic dialysis Qualified Code(s) : E11.22 - Type 2 diabetes mellitus with diabetic chronic kidney disease; N18.6 - End stage renal disease; Z79.4 - detention (current) use of insulin; Z99.2 - Dependence on renal dialysis (3) End-stage renal disease on hemodialysis Current Visit: Yes Status: Acute Secondary to diabetic nephropathy. Has been on dialysis since 2015. Fistula RLE. Nephrology consulted and following. (4) HTN (hypertension) Current Visit: Yes Status: Chronic Qualifiers: Hypertension type: essential hypertension Qualified Code(s): I10 - Essential (primary) hypertension (5) Anemia in chronic kidney disease Current Visit: Yes Status: Chronic Hb stable at this time. Qualifiers: Chronic kidney disease stage: on chronic dialysis Qualified Code(s): N18.6 - End stage renal disease; D63.1 - Anemia in chronic kidney disease; Z99.2 - Dependence on renal dialysis - Subjective Interval history: Patient seen and examined. Patient is sleeping comfortably in bed. States he's "fine." Denies any new episodes of wound bleeding. Left foot is well-dressed without evidence of active bleeding. Surgery today for wound repair was cancelled due to OR unexpectedly closing. Denies fever, chills, chest pain, shortness of breath, nausea, vomiting, diarrhea, swelling. Infect Dis PN-Objective Data - Labs CBC & Chem 7: 10/08/17 05:47 10/08/17 05:47 Labs: Laboratory Results - last 24 hr 10/04/17 10/07/17 10/07/17 05:19 07:16 11:52 WBC RBC Hgb Hct MCV MCH MCHC RDW Plt Count MPV Immature Gran % Seg Neutrophils % Lymphocytes % Monocytes % Eosinophils % Basophils % Neutrophils # Lymphocytes # Monocytes # Eosinophils # Basophils # Sodium Potassium Chloride Carbon Dioxide BUN Creatinine Est GFR ( Amer) Est GFR (Non-Af Amer) BUN/Creatinine Ratio Glucose POC Glucose 129 H 193 H Calculated Osmolality Calcium Random Vancomycin Crossmatch See Detail 10/07/17 10/07/17 10/08/17 16:31 20:01 05:47 WBC RBC Hgb 7.6 L Hct 23.1 L MCV MCH MCHC RDW Plt Count MPV Immature Gran % Seg Neutrophils % Lymphocytes % Monocytes % Eosinophils % Basophils % Neutrophils # Lymphocytes # Monocytes # Eosinophils # Basophils # Sodium 135 L Potassium 4.9 Chloride 97 L Carbon Dioxide 31 H BUN 32 H Creatinine 7.00 H Est GFR ( Amer) 10 L Est GFR (Non-Af Amer) 8 L BUN/Creatinine Ratio 5 L Glucose 153 H POC Glucose 143 H Calculated Osmolality 290 Calcium 8.9 Random Vancomycin Crossmatch 10/08/17 10/08/17 05:47 05:47 WBC 9.8 RBC 2.39 L Hgb 7.8 L Hct 23.2 L MCV 97.1 D MCH 32.6 MCHC 33.6 RDW 15.5 H Plt Count 160 MPV 9.0 L Immature Gran % 2.1 Seg Neutrophils % 78.7 Lymphocytes % 9.0 Monocytes % 5.7 Eosinophils % 4.1 Basophils % 0.4 Neutrophils # 7.7 Lymphocytes # 0.9 Monocytes # 0.6 Eosinophils # 0.4 Basophils # 0.0 Sodium Potassium Chloride Carbon Dioxide BUN Creatinine Est GFR ( Amer) Est GFR (Non-Af Amer) BUN/Creatinine Ratio Glucose POC Glucose Calculated Osmolality Calcium Random Vancomycin 17 Crossmatch Cultures: Cultures 10/04/17 08:25 Surgical Biopsy Culture - Final Left Great Toe Staphylococcus aureus Enterococcus faecalis Pseudomonas aeruginosa Escherichia coli 10/04/17 08:25 Surgical Biopsy Culture - Final Left Great Toe Staphylococcus aureus Enterococcus faecalis Pseudomonas aeruginosa 10/04/17 08:25 Anaerobic Culture - Preliminary Left Great Toe At this time, no anaerobic growth is present. The culture will be finalized after 5 days of incubation. 10/04/17 08:25 Surgical Biopsy Culture - Final Left Great Toe Staphylococcus aureus Enterococcus faecalis Pseudomonas aeruginosa Escherichia coli Serology 10/03/17 Range/Units 11:53 Hep Bs Antigen Nonreactive (Nonreactive) Hep Bs Antibody 0.00 mIU/mL Exam - Constitutional Vitals: Temp Pulse Resp BP Pulse Ox 98.5 F 63 16 108/55 90 10/08/17 10:44 10/08/17 10:44 10/08/17 10:44 10/08/17 10:44 10/08/17 10:44 General appearance: average body habitus, cooperative, no acute distress - Head Head exam: Present: atraumatic, normal inspection, normocephalic - Eye Eye exam: Present: EOMI, normal appearance, PERRL Pupils: Present: normal accommodation - ENT ENT exam: Present: mucous membranes moist - Neck Neck exam: Present: normal inspection - Respiratory Respiratory exam: Present: CTAB. Absent: rales, respiratory distress, rhonchi, wheezes - Cardiovascular Cardiovascular exam: Present: RRR, +S1, +S2 - GI/Abdominal GI/Abdominal exam: Present: normal bowel sounds, soft. Absent: distended, tenderness - Extremities Exam Extremities exam: Present: normal inspection (Left foot well-dressed, no evidence of bleeding). Absent: joint swelling, pedal edema, tenderness - Neurological Exam Neurological exam: Present: alert, oriented X3, no focal deficits - Psychiatric Psychiatric exam: Present: normal affect, normal mood - Skin Skin exam: Present: dry, intact, normal color, warm - VTE Documentation of Mechanical Device: Venous foot pump, device Consult Discharge Plan - Plan Referrals: Kacie Lopez CNP [Primary Care Provider] - - Attending Attestation I examined this patient and my medical decision-making was reviewed with the Resident Physician. I agree with the documented findings, disposition and treatment plan as described except to the extent set forth below.
[2017-10-08] MEDS ORDERED: Vancomycin 500 MG in 0.9 % Sodium Chloride Mini Bag 100 ML IVPB ONE (16:00)
[2017-10-08] MEDS ORDERED: 0.9 % Sodium Chloride 2,000 ML ONE (18:26)
[2017-10-08] MEDS: Cefepime HCl 2,000 MG in Water for inj. (sterile) 20 ML 20 ML IVP SCH (18:59)
[2017-10-08] MEDS: Insulin DETEMIR 100 UNIT/ML X5UNITS SQ SCH (22:09)
[2017-10-09] MEDS ORDERED: Cefepime HCl 1,000 MG in Water for inj. (sterile) 20 ML 10 ML IVP SCH
[2017-10-09] MEDS: *HR* Heparin 5,000 UNIT/ML VIAL SQ SCH ×2 (06:15→18:00)
--- NOTE | 2017-10-09 06:21 | Anesthesia Evaluation PreOp ---
Date of Encounter: 10/09/17 Time of Encounter: 06:00 - Past History Planned Operation: Left Foot Repair Wound Cardiac History: HTN, Hyperlipidemia, Other (Anemia of chronic disease) Pulmonary History: Denies Any Significant HX BUILDER'S LABOURER History: Denies Any Significant HX Other Medical History: Renal (ESRD will be dialyzed 8-30 am), Diabetes Type II Anesthesia History: No Prior Anesthetic Complications Alcohol Use: none Drug use: none Medications and Allergies Calcium Acetate [Phos-LO] 2,001 mg PO TIDWM 02/09/15 [History] Aspirin 81 mg PO DAILY 10/03/17 [History] Atorvastatin [Lipitor] 40 mg PO HS 10/03/17 [History] Bumetanide [Bumex] 1 mg PO DAILY 10/03/17 [History] Docusate Sodium [Dok] 100 mg PO BID 10/03/17 [History] Isosorbide DInitrate [Isosorbide Dinitrate] 50 mg PO TID 10/03/17 [History] Losartan Potassium [Cozaar] 100 mg PO DAILY 10/03/17 [History] NIFEdipine [Nifedipine ER] 60 mg PO DAILY 10/03/17 [History] OxyCODONE Immed Rel [Roxicodone 15 MG] 15 mg PO BID 10/03/17 [History] Renal Vitamin [Renal Caps Softgel] 1 cap PO DAILY 10/03/17 [History] 3 Allergy/AdvReac Type Severity Reaction Status Date / Time No Known Allergies Allergy Verified 07/18/16 08:43 - Meds/Allergy Pre-op Review Medications Reviewed: Yes Allergies Reviewed: Yes Beta Blockers on Current Med List: No Anesthesia Results - Labs 10/08/17 05:47 10/08/17 05:47 - Imaging Additional studies: ECHO 2014 EF 50%, no pulm htn Anesthesia Exam Vital Signs/O2 Sat/Glucose, Most Current Temp Pulse Resp BP Pulse Ox 10/09/17 04:13 99 F 69 16 156/76 94 Height: 5'11 Weight: 179 lbs NPO (# of Hours): MN Pain Scale: 0 - HEENT Pupil (Motor): Pupils equal, EOMI Mallampati: II Teeth: Edentulous Oral Opening: Greater than 3 - BUILDER'S LABOURER LOC: Oriented BUILDER'S LABOURER Motor: Normal RUE, Normal LUE, Normal RLE, Normal LLE, Normal Face BUILDER'S LABOURER Sensory: Normal: RUE, LUE, LLE, Face, Deficit: RLE (neuropathic) - Cardiac Rhythm: Regular Murmur: None JVD: No Carotid Bruit: No - Pulmonary Breath Sounds: bilateral Clear Respiratory Effort: Symmetrical Anesthesia Assess/Plan ASA Score: 4 (HTN DM ESRD to be dialyzed today) Modified [place] Scale for Level of Consciousness: Cooperative, oriented, and tranquil Anesthetic Plan: MAC Monitoring Plan: Standard Monitors Recovery Plan: Other (Discussed MAC, possible GA, agrees to proceed)
[2017-10-09 06:33] LABS: Basophils % 0.3 %; Eosinophils # 0.4 K/mcL (0.0-0.6); Eosinophils % 3.8 %; Hemoglobin 7.8 g/dL (12.9-16.9); Immature Granulocytes % 2.1 % (0-4); Lymphocytes # 0.7 K/mcL (0.6-4.6); Lymphocytes % 7.9 %; Mean Corpuscular HGB Conc 32.5 g/dL (31.6-35.5); Mean Corpuscular Hemoglobin 31.8 pg (28.0-33.3); Monocytes # 0.5 K/mcL (0.0-1.3); Monocytes % 5.7 %; Neutrophils # 7.4 K/mcL (1.6-8.9); Platelet Count 187 K/mcL (140-400); Red Blood Count 2.45 M/mcL (4.19-5.50); Red Cell Distribution Width 14.5 % (11.5-14.5); Segmented Neutrophils % 80.2 %
[2017-10-09 06:53] LABS: Calcium 8.8 mg/dL (8.6-10.3); Potassium 4.5 mEq/L (3.5-5.1)
--- NOTE | 2017-10-09 07:44 | Internal Med Progress Note ---
Hospitalist Progress Note - Encounter Date of Encounter: 10/09/17 Time of Encounter: 07:44 - Exam Vitals: Temp Pulse Resp BP Pulse Ox 99 F 69 16 156/76 94 10/09/17 04:13 10/09/17 04:13 10/09/17 04:13 10/09/17 04:13 10/09/17 04:13 - Assessment and Plan (1) ESRD (end stage renal disease) Current Visit: Yes Status: Chronic (2) HTN (hypertension) Current Visit: Yes Status: Chronic (3) Anemia in chronic kidney disease Current Visit: Yes Status: Chronic (4) DVT prophylaxis Current Visit: Yes Status: Acute (5) Diabetic wet gangrene of the foot Current Visit: Yes Status: Acute (6) Diabetes mellitus Current Visit: Yes Status: Chronic - Time Spent with Patient Total time spent is greater than 50% in coordination of care (as documented) at patient's floor/unit and/or counseling patient: Internal Medicine: Result - Labs CBC & Chem 7: 10/09/17 05:52 10/09/17 05:52 Labs: Short CBC 10/09/17 Range/Units 05:52 WBC 9.2 (4.3-11.1) K/mcL Hgb 7.8 L (12.9-16.9) g/dL Hct 24.0 L (37.5-50.1) % Plt Count 187 (140-400) K/mcL Neutrophils # 7.4 (1.6-8.9) K/mcL BMP 10/09/17 05:52 Sodium 136 Potassium 4.5 Chloride 100 Carbon Dioxide 29 BUN 14 Creatinine 4.47 H Glucose 136 H Calcium 8.8 - VTE Documentation of Mechanical Device: Venous foot pump, device Consult Discharge Plan - Plan Referrals: Kacie Lopez, SPECIAL EDUCATION SECRETARY [Primary Care Provider] - (2) HTN (hypertension) Qualifiers: Hypertension type: essential hypertension Qualified Code(s): I10 - Essential (primary) hypertension (3) Anemia in chronic kidney disease Qualifiers: Chronic kidney disease stage: on chronic dialysis Qualified Code(s): N18.6 - End stage renal disease; D63.1 - Anemia in chronic kidney disease; Z99.2 - Dependence on renal dialysis (6) Diabetes mellitus Qualifiers: Diabetes mellitus type: type 2 Diabetes mellitus terminologist insulin use: with usp use Diabetes mellitus complication status: with kidney complications Diabetes mellitus complication detail: with chronic kidney disease Chronic kidney disease stage: on chronic dialysis Qualified Code(s): E11.22 - Type 2 diabetes mellitus with diabetic chronic kidney disease; N18.6 - End stage renal disease; Z79.4 - halfway (current) use of insulin; Z99.2 - Dependence on renal dialysis
[2017-10-09] MEDS: Insulin LISPRO 300 UNITS/3 ML VIAL SQ SCH ×4 (08:25→21:19)
[2017-10-09] MEDS: Calcium Acetate 667 MG CAPSULE PO SCH ×3 (08:27→16:02)
[2017-10-09] MEDS: NIFEdipine XL (24 HR) 30 MG TAB.ER.24 PO SCH (08:27)
[2017-10-09] MEDS: Renal Vitamin 1 CAP CAPSULE PO SCH (08:28)
--- NOTE | 2017-10-09 08:45 | Nephrology Progress Note ---
Date of Encounter: 10/09/17 Time of Encounter: 08:41 - Assessment and Plan (1) ESRD (end stage renal disease) Current Visit: Yes Status: Chronic Plan for HD tomorrow Renal diet once diet is resumed Avoid nephrotoxins if possible (2) HTN (hypertension) Current Visit: Yes Status: Chronic B/P controlled Qualifiers: Hypertension type: essential hypertension Qualified Code(s): I10 - Essential (primary) hypertension (3) Anemia in chronic kidney disease Current Visit: Yes Status: Chronic Continue Aranesp Goal hgb of 10-11. Transfusion parameters as per primary team. Qualifiers: Chronic kidney disease stage: on chronic dialysis Qualified Code(s): N18.6 - End stage renal disease; D63.1 - Anemia in chronic kidney disease; Z99.2 - Dependence on renal dialysis (4) Diabetic wet gangrene of the foot Current Visit: Yes Status: Acute per podiatry team Patient will most likely be going for surgery today since it had to be postponed yesterday due to OR closing (5) Diabetes mellitus Current Visit: Yes Status: Chronic Per primary team. Qualifiers: Diabetes mellitus type: type 2 Diabetes mellitus retirement insulin use: with retirement use Diabetes mellitus complication status: with kidney complications Diabetes mellitus complication detail: with chronic kidney disease Chronic kidney disease stage: on chronic dialysis Qualified Code(s) : E11.22 - Type 2 diabetes mellitus with diabetic chronic kidney disease; N18.6 - End stage renal disease; Z79.4 - nursing home (current) use of insulin; Z99.2 - Dependence on renal dialysis Subjective Principal diagnosis: esrd Interval history: Patient seen and examined. States he is doing ok but not happy about still being in hospital. Objective - Vital Signs Vital signs: Vital Signs Temp Pulse Resp BP Pulse Ox 10/09/17 07:50 98.9 F 69 17 171/79 90 10/09/17 04:13 99 F 69 16 156/76 94 10/09/17 00:16 99.4 F 67 15 138/70 93 10/08/17 19:40 97.5 F L 80 16 152/71 95 10/08/17 18:50 97.4 F L 16 148/68 10/08/17 18:35 121/52 10/08/17 18:20 132/65 10/08/17 18:05 118/60 10/08/17 17:50 128/65 10/08/17 17:35 123/62 10/08/17 17:20 110/58 10/08/17 17:05 109/52 10/08/17 16:50 113/48 10/08/17 16:35 100/51 10/08/17 16:20 105/51 10/08/17 16:05 103/52 10/08/17 15:50 100/52 10/08/17 15:35 98/47 10/08/17 15:20 100/49 10/08/17 15:05 98.4 F 18 101/51 10/08/17 10:44 98.5 F 63 16 108/55 90 10/08/17 09:54 122/63 Intake and Output 10/08/17 10/09/17 10/09/17 23:59 07:59 15:59 Output Total 3600 / 3600 Balance -3600 / -3600 Output: Total Dialysis (HD) Output 3600 / 3600 Other: Weight 81.6 kg Blood Glucose* 128 118 Hemodialysis Net Fluid Removed 3000 (mL) Patient Weight 10/09/17 23:59 Weight 81.6 kg - General Appearance General appearance: Present: well-developed, well-nourished EENT: Present: ATNC, mucous membranes moist, hearing intact, vision intact Neck: Present: supple Respiratory: Present: clear Cardiology: Present: no edema, normal S1, normal S2 Dialysis Vascular Access: Arteriovenous Fistula Gastrointestinal: Present: no tenderness, no guarding Neurologic: Present: alert and oriented x3 Psychiatric: Present: depressed, cooperative - Lab 10/09/17 05:52 10/09/17 05:52 Most recent lab results Calcium 8.8 mg/dL (8.6-10.3) 10/09/17 05:52 Phosphorus 5.0 mg/dL (2.7-4.5) H 10/06/17 06:18 - VTE Documentation of Mechanical Device: Venous foot pump, device Consult Discharge Plan - Plan Referrals: Kacie Lopez CNP [Primary Care Provider] -
--- NOTE | 2017-10-09 10:16 | Infectious Disease Progress No ---
Date of Encounter: 10/09/17 Time of Encounter: 08:50 - Assessment and Plan (1) Diabetic wet gangrene of the foot Current Visit: Yes Status: Acute Causative organism: unknown. Gram positive cocci, gram positive rods. POD#5 status post partial left 1st ray amputation on 10/04/17. Minor episodes of wound bleeding. Hb remains stable, today is 7.8. Surgery for wound repair tentatively scheduled for today. Blood cultures drawn 10/03/17 are negative. Wound cultures 10/04/17 shows Staph aureus, Enterococcus faecalis, Pseudomonas, and E.coli. Sensitivities of each microorganism reviewed. Zosyn IV 2.25 grams q12h discontinued. Continue Vancomycin IV. Pharmacy to dose. Goal trough ~15. We will likely plan to continue Vancomycin for ease of administration with HD. Spoke with Nephrology on 10/08 who agrees to Vanc administration after dialysis. Continue Cefepime. Patient to receive PICC line before discharge. Cefepime to be administered after dialysis via PowerGlide that will be placed. Duration of treatment likely 6 weeks, but will discuss with Podiatry. While on antibiotic therapy, weekly CBC, BMP, ESR, and CRP. Followup with Dr. Aguilera in 2 weeks. Monitor renal function and for drug toxicity and dose-adjust antibiotics. (2) Diabetes mellitus Current Visit: Yes Status: Chronic Diagnosed in 2007. Adequately controlled. Last HbA1C 6.3. 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 Has been on dialysis since 2014. Fistula RLE. Nephrology consulted and following. (4) HTN (hypertension) Current Visit: Yes Status: Chronic Qualifiers: Hypertension type: essential hypertension Qualified Code(s): I10 - Essential (primary) hypertension (5) Anemia in chronic kidney disease Current Visit: Yes Status: Chronic Hb stable at this time, today is 7.8. Aranesp started by Nephrology for goal of 10-11. Qualifiers: Chronic kidney disease stage: on chronic dialysis Qualified Code(s): N18.6 - End stage renal disease; D63.1 - Anemia in chronic kidney disease; Z99.2 - Dependence on renal dialysis - Subjective Interval history: Patient seen and examined. Patient is sleeping comfortably in bed. States feeling fine. Denies any new episodes of wound bleeding. Left foot is well- dressed without evidence of active bleeding. Surgery for wound repair tentatively scheduled for today. Denies fever, chills, chest pain, shortness of breath, nausea, vomiting, diarrhea, swelling. Infect Dis PN-Objective Data - Labs CBC & Chem 7: 10/09/17 05:52 10/09/17 05:52 Labs: Laboratory Results - last 24 hr 10/07/17 10/08/17 10/08/17 20:40 12:01 16:35 WBC RBC Hgb Hct MCV MCH MCHC RDW Plt Count MPV Immature Gran % Seg Neutrophils % Lymphocytes % Monocytes % Eosinophils % Basophils % Neutrophils # Lymphocytes # Monocytes # Eosinophils # Basophils # Sodium Potassium Chloride Carbon Dioxide BUN Creatinine Est GFR ( Amer) Est GFR (Non-Af Amer) BUN/Creatinine Ratio Glucose POC Glucose 215 H 137 H 128 H Calculated Osmolality Calcium 10/09/17 10/09/17 05:52 05:52 WBC 9.2 RBC 2.45 L Hgb 7.8 L Hct 24.0 L MCV 98.0 MCH 31.8 MCHC 32.5 RDW 14.5 Plt Count 187 MPV 9.0 L Immature Gran % 2.1 Seg Neutrophils % 80.2 Lymphocytes % 7.9 Monocytes % 5.7 Eosinophils % 3.8 Basophils % 0.3 Neutrophils # 7.4 Lymphocytes # 0.7 Monocytes # 0.5 Eosinophils # 0.4 Basophils # 0.0 Sodium 136 Potassium 4.5 Chloride 100 Carbon Dioxide 29 BUN 14 Creatinine 4.47 H Est GFR ( Amer) 17 L Est GFR (Non-Af Amer) 14 L BUN/Creatinine Ratio 3 L Glucose 136 H POC Glucose Calculated Osmolality 285 Calcium 8.8 Cultures: Cultures 10/04/17 08:25 Anaerobic Culture - Preliminary Left Great Toe At this time, no anaerobic growth is present. The culture will be finalized after 5 days of incubation. 10/04/17 08:25 Anaerobic Culture - Preliminary Left Great Toe At this time, no anaerobic growth is present. The culture will be finalized after 5 days of incubation. 10/04/17 08:25 Surgical Biopsy Culture - Final Left Great Toe Staphylococcus aureus Enterococcus faecalis Pseudomonas aeruginosa Escherichia coli 10/04/17 08:25 Surgical Biopsy Culture - Final Left Great Toe Staphylococcus aureus Enterococcus faecalis Pseudomonas aeruginosa 10/04/17 08:25 Anaerobic Culture - Preliminary Left Great Toe At this time, no anaerobic growth is present. The culture will be finalized after 5 days of incubation. 10/04/17 08:25 Surgical Biopsy Culture - Final Left Great Toe Staphylococcus aureus Enterococcus faecalis Pseudomonas aeruginosa Escherichia coli Serology 10/03/17 Range/Units 11:53 Hep Bs Antigen Nonreactive (Nonreactive) Hep Bs Antibody 0.00 mIU/mL Exam - Constitutional Vitals: Temp Pulse Resp BP Pulse Ox 98.9 F 69 17 171/79 90 10/09/17 07:50 10/09/17 07:50 10/09/17 07:50 10/09/17 07:50 10/09/17 07:50 General appearance: average body habitus, cooperative, no acute distress, no febrile - Head Head exam: Present: atraumatic, normal inspection, normocephalic - Eye Eye exam: Present: EOMI, normal appearance, PERRL Pupils: Present: normal accommodation - Neck Neck exam: Present: normal inspection - Respiratory Respiratory exam: Present: CTAB. Absent: rales, respiratory distress, rhonchi, wheezes - Cardiovascular Cardiovascular exam: Present: RRR, +S1, +S2 - GI/Abdominal GI/Abdominal exam: Present: normal bowel sounds, soft. Absent: distended, tenderness - Extremities Exam Extremities exam: Present: normal inspection. Absent: joint swelling, pedal edema, tenderness Additional comments: Left foot well-dressed. No evidence of bleeding. Neurovascularly intact. - Neurological Exam Neurological exam: Present: alert, oriented X3, no focal deficits - Psychiatric Psychiatric exam: Present: normal affect, normal mood - Skin Skin exam: Present: dry, intact, normal color, warm - VTE Documentation of Mechanical Device: Venous foot pump, device Consult Discharge Plan - Plan Referrals: Kacie Lpoez, GAURAV [Primary Care Provider] - - Attending Attestation I examined this patient and my medical decision-making was reviewed with the Resident Physician. I agree with the documented findings, disposition and treatment plan as described except to the extent set forth below.
[2017-10-09] MEDS: Aspirin 81 MG TAB.CHEW PO SCH (10:51)
[2017-10-09] MEDS: Bumetanide 1 MG TABLET PO SCH (10:51)
--- NOTE | 2017-10-09 10:59 | Internal Med Progress Note ---
<Nicolás Aguilar - Last Filed: 10/09/17 16:42> Hospitalist Progress Note - Encounter Date of Encounter: 10/09/17 - Exam Vitals: Temp Pulse Resp BP Pulse Ox 98.0 F 65 18 143/74 90 10/09/17 16:14 10/09/17 16:14 10/09/17 16:14 10/09/17 16:14 10/09/17 16:14 - Assessment and Plan (1) ESRD (end stage renal disease) Current Visit: Yes Status: Chronic (2) HTN (hypertension) Current Visit: Yes Status: Chronic (3) Anemia in chronic kidney disease Current Visit: Yes Status: Chronic (4) DVT prophylaxis Current Visit: Yes Status: Acute (5) Diabetic wet gangrene of the foot Current Visit: Yes Status: Acute (6) Diabetes mellitus Current Visit: Yes Status: Chronic - Time Spent with Patient Total time spent is greater than 50% in coordination of care (as documented) at patient's floor/unit and/or counseling patient: Internal Medicine: Result - Labs CBC & Chem 7: 10/09/17 05:52 10/09/17 05:52 Labs: Short CBC 10/09/17 Range/Units 05:52 WBC 9.2 (4.3-11.1) K/mcL Hgb 7.8 L (12.9-16.9) g/dL Hct 24.0 L (37.5-50.1) % Plt Count 187 (140-400) K/mcL Neutrophils # 7.4 (1.6-8.9) K/mcL BMP 10/09/17 05:52 Sodium 136 Potassium 4.5 Chloride 100 Carbon Dioxide 29 BUN 14 Creatinine 4.47 H Glucose 136 H Calcium 8.8 Consult Discharge Plan - Plan Referrals: Kacie Lopez, MEDIA MARKETING COORDINATOR [Primary Care Provider] - - Attending Attestation I examined this patient and my medical decision-making was reviewed with the Resident Physician on 10/09/17. I agree with the documented findings, disposition and treatment plan as described except to the extent set forth below. Mr Weaver is currently admitted for infected gangrenous toe and ESRD. He is to go to OR today. He remains moderate to high risk due to potential for worsening clinical status. Mr Weaver is awaiting surgery. He wants to go home. No fever or chills. Hungry. No abd pain. No CP or SOB at this time. Exam Alert Comfortable in bed Mucus membranes dry Heart distant and not tachy No wheeze Abd soft I/P 1. Gangrene L great toe s/p amp - OR for closure today 2. ESRD Further diagnoses and plan as above. Anticipate d/c tomorrow with IV abx as arranged. <Aston Toribio - Last Filed: 10/09/17 19:16> Hospitalist Progress Note - Encounter Date of Encounter: 10/09/17 Time of Encounter: 10:45 - Subjective Interval History: No acute events overnight. Mr. Weaver lying in bed, awaiting OR in the afternoon. Denies fever, dyspnea, chest discomfort. - Exam Vitals: Temp Pulse Resp BP Pulse Ox 98.9 F 69 17 171/79 90 10/09/17 07:50 10/09/17 07:50 10/09/17 07:50 10/09/17 07:50 10/09/17 07:50 Exam: VSS Gen: NAD, answers q's appropriately HEENT: anicteric, not pale Chest: CTAB Heart: S1, S2 only, no m/g/r Abd: Soft, not tender Extremities: wound dressing in left foot remains clean. Neuro: AAOX3, no focal deficits - Assessment and Plan (1) Diabetic wet gangrene of the foot Current Visit: Yes Status: Acute Assessment and Plan: s/p l ray amputation 10/04 POD5; OR today for wound closure ID following, vanc resumed, continuing cefepime cefepime to be administered via picc likely 6 weeks duration outpatient labs upon discharge (dc likely tomorrow): weekly CBC, BMP, ESR, and CRP. Followup with Dr. Aguilera in 2 weeks. (2) ESRD (end stage renal disease) Current Visit: Yes Status: Chronic Assessment and Plan: HD MWF; renal diet, avoiding nephrotoxins (3) HTN (hypertension) Current Visit: Yes Status: Chronic Assessment and Plan: 150s systolic average on nifedipine 90mg, Cozaar 100mg daily monitoring (4) Anemia in chronic kidney disease Current Visit: Yes Status: Chronic Assessment and Plan: hgb 7.8 and stable; no active bleed (5) Diabetes mellitus Current Visit: Yes Status: Chronic Assessment and Plan: a1c 6.3 low dose ssi; monitoring (6) DVT prophylaxis Current Visit: Yes Status: Acute Assessment and Plan: heparin sq q12h - Time Spent with Patient Total time spent is greater than 50% in coordination of care (as documented) at patient's floor/unit and/or counseling patient: Internal Medicine: Result - Labs CBC & Chem 7: 10/09/17 05:52 10/09/17 05:52 Labs: Short CBC 10/09/17 Range/Units 05:52 WBC 9.2 (4.3-11.1) K/mcL Hgb 7.8 L (12.9-16.9) g/dL Hct 24.0 L (37.5-50.1) % Plt Count 187 (140-400) K/mcL Neutrophils # 7.4 (1.6-8.9) K/mcL BMP 10/09/17 05:52 Sodium 136 Potassium 4.5 Chloride 100 Carbon Dioxide 29 BUN 14 Creatinine 4.47 H Glucose 136 H Calcium 8.8 - VTE Documentation of Mechanical Device: Venous foot pump, device <Nicolás Aguilar - Last Filed: 10/09/17 16:42> (2) HTN (hypertension) Qualifiers: Hypertension type: essential hypertension Qualified Code(s): I10 - Essential (primary) hypertension (3) Anemia in chronic kidney disease Qualifiers: Chronic kidney disease stage: on chronic dialysis Qualified Code(s): N18.6 - End stage renal disease; D63.1 - Anemia in chronic kidney disease; Z99.2 - Dependence on renal dialysis (6) Diabetes mellitus Qualifiers: Diabetes mellitus type: type 2 Diabetes 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 use: with residential use Diabetes mellitus complication status: with kidney complications Diabetes mellitus complication detail: with chronic kidney disease Chronic kidney disease stage: on chronic dialysis Qualified Code(s): E11.22 - Type 2 diabetes mellitus with diabetic chronic kidney disease; N18.6 - End stage renal disease; 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; Z99.2 - Dependence on renal dialysis <Aston Toribio - Last Filed: 10/09/17 19:16> (3) HTN (hypertension) Qualifiers: Hypertension type: essential hypertension Qualified Code(s): I10 - Essential (primary) hypertension (4) Anemia in chronic kidney disease Qualifiers: Chronic kidney disease stage: on chronic dialysis Qualified Code(s): N18.6 - End stage renal disease; D63.1 - Anemia in chronic kidney disease; Z99.2 - Dependence on renal dialysis (5) Diabetes mellitus Qualifiers: Diabetes mellitus type: type 2 Diabetes 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
[2017-10-09] MEDS ORDERED: *HR* Propofol 200 MG/20 ML VIAL IVP ONE (13:20)
[2017-10-09] MEDS ORDERED: *HR* FentaNYL (PF) 100 MCG/2 ML VIAL ONE ×2 (13:20→13:22)
[2017-10-09] MEDS ORDERED: *HR* Midazolam HCl 2 MG/2 ML VIAL ONE (13:22)
[2017-10-09] MEDS ORDERED: Lidocaine -MPF 2% 2 ML VIAL ONE (13:22)
[2017-10-09] MEDS ORDERED: Vancomycin 1,000 MG, Sodium Chloride IRRigation 1,000 ML IR ONE (13:45)
[2017-10-09] MEDS ORDERED: Bupivacaine/EPI 1:200k 0.25%PF 10 ML VIAL INFILT ONE (13:51)
[2017-10-09] MEDS ORDERED: Lidocaine 1% 20 ML MDV ONE (13:51)
--- NOTE | 2017-10-09 15:01 | Operative Note ---
Date of procedure: 10/09/17 Pre-op diagnosis: left foot wound 7cmx3.5cmx1.5cm Post-op diagnosis: same Procedure: intermediate repair of left foot wound Implants: none Complications: none Anesthesia: MAC Surgeon: Kendall Crenshaw Was there an fleet administrative assistant present: No Estimated blood loss (cc): 250 Specimen: none Condition: stable Disposition: PACU Procedure in Detail: Indications: 57 year old diabetic male on dialysis who underwent an open amputation for wet gangrene of the left hallux. No purulent drainage or devitalized tissue present in the wound after partial 1st ray amputation. They attempted to get the patient's blood to make PRP which was unsuccessful. Intermediate closure of wound. Attention was directed to the distal aspect of the patient's left foot at the open amputation site. Upon probing and exploring the wound for infection, there was some bleeding evident and the bleeding vessels were tied off using vicryl and 3 vascular clips were also thrown around the vessels. Gelfoam, topical thrombin and mae were applied to the wound as well as surgicel. Pressure was held for a few minutes and adequate hemostasis was present. The tourniquet was deflated. Layered closure of the wound was then performed using 0 and 2-0 Vicryl and 0 Prolene was used to reapproximate the skin. Adequate hemostasis was felt to be present. Bandaging included Adaptic, 4 x 4 gauze, ABDs, Kerlix and an Lisandro wrap. Patient given strict instructions to remain nonweightbearing to the left lower extremity. Leave bandage clean dry and intact. Patient tolerated the anesthesia and the procedure well.
[2017-10-09] MEDS: *HR* HYDROcodone/Acet 5/325 mg TABLET PO PRN (18:01)
[2017-10-09] MEDS: *HR* OxyCODONE Immed Rel 5 MG TABLET PO PRN (21:04)
[2017-10-09] MEDS: Insulin DETEMIR 100 UNIT/ML X5UNITS SQ SCH (21:05)
[2017-10-10] MEDS ORDERED: Ondansetron ODT 4 MG TAB.RAPDIS SL PRN (05:03)
[2017-10-10 05:22] LABS: Basophils % 0.4 %; Eosinophils # 0.2 K/mcL (0.0-0.6); Eosinophils % 1.8 %; Hematocrit 20.4 % (37.5-50.1); Hemoglobin 6.6 g/dL (12.9-16.9); Immature Granulocytes % 1.2 % (0-4); Lymphocytes # 0.7 K/mcL (0.6-4.6); Lymphocytes % 6.1 %; Mean Corpuscular HGB Conc 32.4 g/dL (31.6-35.5); Mean Corpuscular Hemoglobin 31.3 pg (28.0-33.3); Mean Corpuscular Volume 96.7 fL (83.0-100.0); Mean Platelet Volume 9.3 fL (9.4-12.4); Monocytes # 0.6 K/mcL (0.0-1.3); Monocytes % 5.8 %; Platelet Count 198 K/mcL (140-400); Red Blood Count 2.11 M/mcL (4.19-5.50); Segmented Neutrophils % 84.7 %
[2017-10-10 05:38] LABS: Calcium 8.6 mg/dL (8.6-10.3); Potassium 4.8 mEq/L (3.5-5.1)
[2017-10-10] MEDS: *HR* HYDROcodone/Acet 5/325 mg TABLET PO PRN (05:51)
[2017-10-10] MEDS: *HR* Heparin 5,000 UNIT/ML VIAL SQ SCH (05:54)
[2017-10-10] MEDS: Insulin LISPRO 300 UNITS/3 ML VIAL SQ SCH ×3 (07:48→17:36)
[2017-10-10] MEDS ORDERED: 0.9 % Sodium Chloride 250 ML IVC PRN (08:17)
[2017-10-10] MEDS: NIFEdipine XL (24 HR) 30 MG TAB.ER.24 PO SCH (08:45)
[2017-10-10] MEDS: Renal Vitamin 1 CAP CAPSULE PO SCH (08:45)
[2017-10-10] MEDS: Bumetanide 1 MG TABLET PO SCH (08:45)
[2017-10-10] MEDS: Aspirin 81 MG TAB.CHEW PO SCH (08:46)
[2017-10-10] MEDS: Calcium Acetate 667 MG CAPSULE PO SCH ×3 (08:46→17:26)
--- NOTE | 2017-10-10 09:14 | Infectious Disease Progress No ---
Date of Encounter: 10/10/17 Time of Encounter: 08:30 - Assessment and Plan (1) Diabetic wet gangrene of the foot Current Visit: Yes Status: Acute Causative organism: Staph aureus, Enterococcus faecalis, Pseudomonas, E.coli POD#1 wound repair on 10/09/17. POD#6 status post partial left 1st ray amputation on 10/04/17. Minor episodes of wound bleeding. Today, Hb is 6.6. Surgery for wound repair yesterday. On Aranesp. Blood cultures drawn 10/03/17 are negative. Wound cultures 10/04/17 shows Staph aureus, Enterococcus faecalis, Pseudomonas, and E.coli. Sensitivities of each microorganism reviewed. Zosyn IV 2.25 grams q12h discontinued. Continue Vancomycin IV. Pharmacy to dose. Goal trough ~15. We will likely plan to continue Vancomycin for ease of administration with HD. Spoke with Nephrology on 10/08 who agrees to Vanc administration after dialysis. Continue Cefepime. Patient to receive PowerGlide today for IV antibiotics. Duration of treatment likely 6 weeks, but will discuss with Podiatry. While on antibiotic therapy, weekly CBC, BMP, ESR, and CRP. Followup with Dr. Aguilera in 2 weeks. Monitor renal function and for drug toxicity and dose-adjust antibiotics. (2) Diabetes mellitus Current Visit: Yes Status: Chronic Diagnosed in 2007. Adequately controlled. Last HbA1C 6.3. Qualifiers: Diabetes mellitus type: type 2 Diabetes mellitus director long term care insulin use: with correction use Diabetes mellitus complication status: with kidney complications Diabetes mellitus complication detail: with chronic kidney disease Chronic kidney disease stage: on chronic dialysis Qualified Code(s) : E11.22 - Type 2 diabetes mellitus with diabetic chronic kidney disease; N18.6 - End stage renal disease; Z79.4 - halfway (current) use of insulin; Z99.2 - Dependence on renal dialysis (3) End-stage renal disease on hemodialysis Current Visit: Yes Status: Acute Secondary to diabetic nephropathy. Has been on dialysis since 2014. Fistula RLE. Nephrology consulted and following. (4) HTN (hypertension) Current Visit: Yes Status: Chronic Qualifiers: Hypertension type: essential hypertension Qualified Code(s): I10 - Essential (primary) hypertension (5) Anemia in chronic kidney disease Current Visit: Yes Status: Chronic Today, Hb is 6.6. Had wound repair surgery yesterday. Aranesp started by Nephrology for goal of 10-11. Qualifiers: Chronic kidney disease stage: on chronic dialysis Qualified Code(s): N18.6 - End stage renal disease; D63.1 - Anemia in chronic kidney disease; Z99.2 - Dependence on renal dialysis - Subjective Interval history: Patient seen and examined. Patient is sleeping comfortably in bed. Patient is irritated and states multiple times he wants to go home. Otherwise, states he feels fine and denies any complaints. Received wound repair surgery yesterday, left foot is well-dressed. Patient denies any episodes of wound bleeding. Patient to receive PowerGlide today for IV antibiotics. Denies fever, chills, chest pain, shortness of breath, nausea, vomiting, diarrhea, swelling. Infect Dis PN-Objective Data - Labs CBC & Chem 7: 10/10/17 04:31 10/10/17 04:31 Labs: Laboratory Results - last 24 hr 10/04/17 10/09/17 10/09/17 05:19 07:32 11:31 WBC RBC Hgb Hct MCV MCH MCHC RDW Plt Count MPV Immature Gran % Seg Neutrophils % Lymphocytes % Monocytes % Eosinophils % Basophils % Neutrophils # Lymphocytes # Monocytes # Eosinophils # Basophils # Sodium Potassium Chloride Carbon Dioxide BUN Creatinine Est GFR ( Amer) Est GFR (Non-Af Amer) BUN/Creatinine Ratio Glucose POC Glucose 118 H 107 H Calculated Osmolality Calcium Random Vancomycin Blood Type O POSITIVE Antibody Screen NEGATIVE Crossmatch See Detail 10/09/17 10/09/17 10/10/17 16:40 20:21 04:31 WBC RBC Hgb Hct MCV MCH MCHC RDW Plt Count MPV Immature Gran % Seg Neutrophils % Lymphocytes % Monocytes % Eosinophils % Basophils % Neutrophils # Lymphocytes # Monocytes # Eosinophils # Basophils # Sodium Potassium Chloride Carbon Dioxide BUN Creatinine Est GFR ( Amer) Est GFR (Non-Af Amer) BUN/Creatinine Ratio Glucose POC Glucose 106 H 228 H Calculated Osmolality Calcium Random Vancomycin 15 Blood Type Antibody Screen Crossmatch 10/10/17 10/10/17 04:31 04:31 WBC 10.7 RBC 2.11 L Hgb 6.6 L Hct 20.4 L MCV 96.7 MCH 31.3 MCHC 32.4 RDW 14.0 Plt Count 198 MPV 9.3 L Immature Gran % 1.2 Seg Neutrophils % 84.7 Lymphocytes % 6.1 Monocytes % 5.8 Eosinophils % 1.8 Basophils % 0.4 Neutrophils # 9.0 H Lymphocytes # 0.7 Monocytes # 0.6 Eosinophils # 0.2 Basophils # 0.0 Sodium 136 Potassium 4.8 Chloride 99 Carbon Dioxide 29 BUN 23 H Creatinine 6.46 H Est GFR ( Amer) 11 L Est GFR (Non-Af Amer) 9 L BUN/Creatinine Ratio 4 L Glucose 140 H POC Glucose Calculated Osmolality 288 Calcium 8.6 Random Vancomycin Blood Type Antibody Screen Crossmatch Cultures: Cultures 10/04/17 08:25 Anaerobic Culture - Preliminary Left Great Toe At this time, no anaerobic growth is present. The culture will be finalized after 5 days of incubation. 10/04/17 08:25 Anaerobic Culture - Preliminary Left Great Toe At this time, no anaerobic growth is present. The culture will be finalized after 5 days of incubation. 10/04/17 08:25 Surgical Biopsy Culture - Final Left Great Toe Staphylococcus aureus Enterococcus faecalis Pseudomonas aeruginosa Escherichia coli 10/04/17 08:25 Surgical Biopsy Culture - Final Left Great Toe Staphylococcus aureus Enterococcus faecalis Pseudomonas aeruginosa 10/04/17 08:25 Anaerobic Culture - Preliminary Left Great Toe At this time, no anaerobic growth is present. The culture will be finalized after 5 days of incubation. 10/04/17 08:25 Surgical Biopsy Culture - Final Left Great Toe Staphylococcus aureus Enterococcus faecalis Pseudomonas aeruginosa Escherichia coli Serology 10/03/17 Range/Units 11:53 Hep Bs Antigen Nonreactive (Nonreactive) Hep Bs Antibody 0.00 mIU/mL Exam - Constitutional Vitals: Temp Pulse Resp BP Pulse Ox 99.6 F 72 19 142/62 91 10/10/17 07:15 10/10/17 07:15 10/10/17 07:15 10/10/17 07:15 10/10/17 07:15 General appearance: average body habitus, cooperative, no acute distress, no febrile - Head Head exam: Present: atraumatic, normal inspection, normocephalic - Eye Eye exam: Present: EOMI, normal appearance, PERRL Pupils: Present: normal accommodation - ENT ENT exam: Present: mucous membranes moist, normal oropharynx - Neck Neck exam: Present: normal inspection - Respiratory Respiratory exam: Present: CTAB. Absent: rales, respiratory distress, rhonchi, wheezes - Cardiovascular Cardiovascular exam: Present: RRR, +S1, +S2 - GI/Abdominal GI/Abdominal exam: Present: normal bowel sounds, soft. Absent: distended, tenderness - Extremities Exam Extremities exam: Present: normal inspection. Absent: joint swelling, pedal edema, tenderness Additional comments: Left foot well-dressed, no evidence of bleeding. - Neurological Exam Neurological exam: Present: alert, oriented X3, no focal deficits - Psychiatric Psychiatric exam: Present: normal affect, normal mood - Skin Skin exam: Present: dry, intact, normal color, warm - VTE Documentation of Mechanical Device: Venous foot pump, device Consult Discharge Plan - Plan Referrals: Kacie Lopez, GAURAV [Primary Care Provider] - - Attending Attestation I examined this patient and my medical decision-making was reviewed with the Resident Physician. I agree with the documented findings, disposition and treatment plan as described except to the extent set forth below. Scripts were written for the cefepime and vancomycin. Patient follow-up with me in clinic in 2 weeks. While on antibiotics we need weekly CBC, ESR and CRP
--- NOTE | 2017-10-10 10:19 | Nephrology Progress Note ---
Date of Encounter: 10/10/17 Time of Encounter: 10:12 - Assessment and Plan (1) ESRD (end stage renal disease) Current Visit: Yes Status: Chronic HD ordered for today, however patient does not want it. Encouraged pt he should have HD today, as it is his scheduled day. 1 Units PRBC ordered to be given in HD, if he is willing to go. Renal diet once diet is resumed. Avoid nephrotoxins if possible. (2) HTN (hypertension) Current Visit: Yes Status: Chronic B/P controlled, 142/62. Qualifiers: Hypertension type: essential hypertension Qualified Code(s): I10 - Essential (primary) hypertension (3) Anemia in chronic kidney disease Current Visit: Yes Status: Chronic Continue Aranesp Goal hgb of 10-11. 1 Unit PRBC ordered for HD. Qualifiers: Chronic kidney disease stage: on chronic dialysis Qualified Code(s): N18.6 - End stage renal disease; D63.1 - Anemia in chronic kidney disease; Z99.2 - Dependence on renal dialysis (4) Diabetic wet gangrene of the foot Current Visit: Yes Status: Acute per podiatry team Patient had wound closure in OR yesterday with Dr. Crenshaw. (5) Diabetes mellitus Current Visit: Yes Status: Chronic Per primary team. 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 No CP/SOB, nausea, vomiting, diarrhea. Objective - Vital Signs Vital signs: Vital Signs Temp Pulse Resp BP Pulse Ox 10/10/17 07:15 99.6 F 72 19 142/62 91 10/10/17 05:05 99.9 F H 66 17 133/66 90 10/09/17 23:50 99 F 67 17 117/54 90 10/09/17 20:25 98.7 F 66 17 102/48 90 10/09/17 16:14 98.0 F 65 18 143/74 90 10/09/17 11:05 98.2 F 61 18 153/66 97 Intake and Output 10/09/17 10/10/17 10/10/17 23:59 07:59 15:59 Intake Total 240 / 240 0 / 0 Balance 240 / 240 0 / 0 Intake: Oral 240 / 240 0 / 0 Other: Meal Dinner Breakfast Percent of Meal Consumed 100% 0% Weight 79.3 kg Blood Glucose* 228 133 - General Appearance General appearance: Present: well-developed, well-nourished EENT: Present: ATNC, hearing intact, vision intact Neck: Present: supple Respiratory: Present: clear Cardiology: Present: no edema, normal S1, normal S2 Dialysis Vascular Access: Arteriovenous Fistula thrill: Yes bruit: Yes Gastrointestinal: Present: normoactive bowel sounds, no tenderness, no guarding Integumentary: Present: no rash, warm and dry Neurologic: Present: alert and oriented x3 Additional Comments: LLE bandage C/D/I. Psychiatric: Present: mood/affect appropriate, cooperative - Lab 10/10/17 04:31 10/10/17 04:31 Most recent lab results Calcium 8.6 mg/dL (8.6-10.3) 10/10/17 04:31 Phosphorus 5.0 mg/dL (2.7-4.5) H 10/06/17 06:18 - VTE Documentation of Mechanical Device: Venous foot pump, device Consult Discharge Plan - Plan Referrals: Kacie Lopez CNP [Primary Care Provider] -
--- NOTE | 2017-10-10 12:29 | Discharge Summary ---
<Thomas Leach - Last Filed: 10/10/17 19:20> - NOTES TO OUTPATIENT PROVIDER Notes to Outpatient Provider: - Continue to be on renal and diabetic diet. - Follow up with digital advertising specialist. - follow up for dialysis MWF. - Up with primary care doctor to assess yearly A1C, renal function, vision and foot exam. Orders not resulted at time of discharge: Pending orders 10/04/17 05:19 Type and Screen [BBK] AM 0400 10/04/17 08:25 Culture,Anaerobic [RM] Routine Culture,Anaerobic [RM] Routine 10/07/17 01:04 Red Blood Cells [BBK] Stat Date of Encounter: 10/10/17 Time of Encounter: 09:30 - Discharge Diagnosis (1) Diabetic wet gangrene of the foot Priority: Primary Status: Acute (2) ESRD (end stage renal disease) Priority: Secondary Status: Chronic (3) Anemia of chronic disease Priority: Secondary Status: Acute (4) HTN (hypertension) Priority: Secondary Status: Chronic Qualifiers: Hypertension type: essential hypertension Qualified Code(s): I10 - Essential (primary) hypertension (5) Diabetes mellitus Priority: Secondary Status: Chronic Qualifiers: Diabetes mellitus type: type 2 Diabetes mellitus terminal worker insulin use: with fci use Diabetes mellitus complication status: with kidney complications Diabetes mellitus complication detail: with chronic kidney disease Chronic kidney disease stage: on chronic dialysis Qualified Code(s) : E11.22 - Type 2 diabetes mellitus with diabetic chronic kidney disease; N18.6 - End stage renal disease; Z79.4 - snf (current) use of insulin; Z99.2 - Dependence on renal dialysis Hospital course: Mr. Weaver is a 57 year old male with a PMHx of ESRD, DM who was admitted to the [facility] because of blister in the left toe which was continuing to get wider. He was seen at an outside facility but was sent to [facility] because of his comorbidities. Patient underwent surgery of his left toe and then a wound flap/repair surgery 3 days after. Patient was continuously treated with 5 day course of vancomycin and Zosyn, and after his culture sensitivities results of the surgical biopsy was switched to Maxipime and vancomycin. Patient also underwent 3 episodes of HD during the course of hospital stay. He is being sent home on 5 weeks of cefepime vials which she is going take via powerglide on days, after he gets hemodialyzed. His course of hospital stay otherwise very benign. - Time Spent with Patient Total time spent providing and/or coordinating discharge services: - Discharge Medications Home Medications: Calcium Acetate [Phos-LO] 2,001 mg PO TIDWM 02/09/15 [History] Aspirin 81 mg PO DAILY 10/03/17 [History] Atorvastatin [Lipitor] 40 mg PO HS 10/03/17 [History] Bumetanide [Bumex] 1 mg PO DAILY 10/03/17 [History] Docusate Sodium [Dok] 100 mg PO BID 10/03/17 [History] Isosorbide DInitrate [Isosorbide Dinitrate] 50 mg PO TID 10/03/17 [History] Losartan Potassium [Cozaar] 100 mg PO DAILY 10/03/17 [History] NIFEdipine [Nifedipine ER] 60 mg PO DAILY 10/03/17 [History] OxyCODONE Immed Rel [Roxicodone 15 MG] 15 mg PO BID 10/03/17 [History] Renal Vitamin [Renal Caps Softgel] 1 cap PO DAILY 10/03/17 [History] Allergies/Adverse Reactions: 3 Allergy/AdvReac Type Severity Reaction Status Date / Time No Known Allergies Allergy Verified 07/18/16 08:43 Date of admission: 10/03/17 08:22 Primary care physician: Kacie Lopez CNP Consults: 10/03/17 12:00 Consult to Dialysis [CONS] ONCE 10/05/17 07:37 Consult to Infectious Diseases [CONS] Routine Consulting Provider: Infectious Disease Burke Reason for Consult: Wet gangrene, s/p toe amputation, antibiotics recommendation please. Thank you. Call Completed: No 10/06/17 08:00 Consult to Dialysis [CONS] ONCE 10/08/17 12:45 Consult to Dialysis [CONS] ONCE 10/09/17 12:45 Consult to Dialysis [CONS] ONCE 10/09/17 15:13 Consult to Physical Therapy [CONS] Stat Comment: Evaluate, develop and implement POC Reason for Consult: s/p surgery left foot gait train for non-weight bearing to the left lower extremity Does patient have active BEDREST order?: No Is patient medically & hemodynamically stable?: Yes 10/10/17 07:19 Consult to Invasive Line Access Team [CONS] Routine Reason for Consult: home atb Line Type: EPIV 10/10/17 08:30 Consult to Dialysis [CONS] ONCE - Constitutional Vitals: Temp Pulse Resp BP Pulse Ox 99.0 F 66 18 119/52 92 10/10/17 11:06 10/10/17 11:06 10/10/17 11:06 10/10/17 11:06 10/10/17 11:06 General appearance: Present: A&O X 3, pleasant, no acute distress Exam: VSS Gen: NAD, answers q's appropriately HEENT: anicteric, not pale Chest: CTAB Heart: S1, S2 only, no m/g/r Abd: Soft, not tender Extremities: wound dressing in left foot remains clean. Neuro: AAOX3, no focal deficits - Patient Status Disposition: Home, Self-Care Condition: Undetermined Overall status at discharge: patient is progressing back to baseline - Discharge Instructions Follow Up With: Kacie Lopez CNP [Primary Care Provider] - - Diet and Activity Activity: resume usual activities as tolerated Diet: diabetic diet (and renal diet) - VTE Documentation of Mechanical Device: Venous foot pump, device <Nicolás Aguilar - Last Filed: 10/10/17 19:32> Orders not resulted at time of discharge: Pending orders 10/04/17 08:25 Culture,Anaerobic [RM] Routine Culture,Anaerobic [RM] Routine Date of Encounter: 10/10/17 - Discharge Diagnosis (1) ESRD (end stage renal disease) Status: Chronic (2) HTN (hypertension) Status: Chronic Qualifiers: Hypertension type: essential hypertension Qualified Code(s): I10 - Essential (primary) hypertension (3) Anemia in chronic kidney disease Priority: Secondary Status: Chronic Qualifiers: Chronic kidney disease stage: on chronic dialysis Qualified Code(s): N18.6 - End stage renal disease; D63.1 - Anemia in chronic kidney disease; Z99.2 - Dependence on renal dialysis (4) Diabetic wet gangrene of the foot Status: Acute (5) Diabetes mellitus Status: Chronic Qualifiers: Diabetes mellitus type: type 2 Diabetes mellitus terminal worker insulin use: with fci use Diabetes mellitus complication status: with kidney complications Diabetes mellitus complication detail: with chronic kidney disease Chronic kidney disease stage: on chronic dialysis Qualified Code(s) : E11.22 - Type 2 diabetes mellitus with diabetic chronic kidney disease; N18.6 - End stage renal disease; Z79.4 - meterman (current) use of insulin; Z99.2 - Dependence on renal dialysis Hospital course: Mr. Weaver is a 57 year old male - Time Spent with Patient Total time spent providing and/or coordinating discharge services: 37min Date of admission: 10/03/17 08:22 Primary care physician: Kacie Lopez CNP Consults: 10/03/17 12:00 Consult to Dialysis [CONS] ONCE 10/05/17 07:37 Consult to Infectious Diseases [CONS] Routine Consulting Provider: Infectious Disease Mitzi Reason for Consult: Wet gangrene, s/p toe amputation, antibiotics recommendation please. Thank you. Call Completed: No 10/06/17 08:00 Consult to Dialysis [CONS] ONCE 10/08/17 12:45 Consult to Dialysis [CONS] ONCE 10/09/17 12:45 Consult to Dialysis [CONS] ONCE 10/09/17 15:13 Consult to Physical Therapy [CONS] Stat Comment: Evaluate, develop and implement POC Reason for Consult: s/p surgery left foot gait train for non-weight bearing to the left lower extremity Does patient have active BEDREST order?: No Is patient medically & hemodynamically stable?: Yes 10/10/17 07:19 Consult to Invasive Line Access Team [CONS] Routine Reason for Consult: home atb Line Type: EPIV 10/10/17 08:30 Consult to Dialysis [CONS] ONCE - Constitutional Vitals: Temp Pulse Resp BP Pulse Ox 97.9 F 61 16 119/52 92 10/10/17 16:45 10/10/17 15:50 10/10/17 16:45 10/10/17 16:45 10/10/17 11:06 - Attending Attestation I examined this patient and my medical decision-making was reviewed with the Resident Physician on 10/10/17. I agree with the documented findings, disposition and treatment plan as described except to the extent set forth below. Mr Weaver has been admitted for gangrene of the toe. He underwent surgery and subsequent closure. He continued on dialysis. He was seen by ID and will complete 6 weeks of IV abx. He is now afebrile and ready for discharge home Exam alert Comfortable Mucus membranes dry Heart distant and regular No wheeze abd soft Dressing intact Plan D/C home today.
[2017-10-10] MEDS ORDERED: 0.9 % Sodium Chloride 1,000 ML ONE (14:09)
[2017-10-10] MEDS: Cefepime HCl 2,000 MG in Water for inj. (sterile) 20 ML 20 ML IVP SCH (17:27)
[2017-10-10 17:43] VITALS: BP 119/52
[2017-10-10 18:47] LABS: Hematocrit 23.1 % (37.5-50.1); Hemoglobin 7.7 g/dL (12.9-16.9)
[2017-10-10] MEDS ORDERED: Aminoglycoside Consult 1 EACH MC ONE (20:46)
--- NOTE | 2017-10-10 21:46 | Physician Discharge Referral ---
- Diagnosis (1) Diabetic wet gangrene of the foot Priority: Primary Status: Acute (2) ESRD (end stage renal disease) Priority: Secondary Status: Chronic (3) Anemia of chronic disease Priority: Secondary Status: Acute (4) HTN (hypertension) Priority: Secondary Status: Chronic (5) Diabetes mellitus Priority: Secondary Status: Chronic - Respiratory Orders Smoking Cessation: Smoking cessation has been advised. For more information, call the [employer] Tobacco Quit Line at 2-278-MBIQ-NOW. - Diet/Nutrition Diet/Nutrition Orders: Renal - Services Needed Following services are medically necessary services: Home Health Aide - Transfer Medications Home Medications: Calcium Acetate [Phos-LO] 2,001 mg PO TIDWM 02/09/15 [History] Aspirin 81 mg PO DAILY 10/03/17 [History] Atorvastatin [Lipitor] 40 mg PO HS 10/03/17 [History] Bumetanide [Bumex] 1 mg PO DAILY 10/03/17 [History] Docusate Sodium [Dok] 100 mg PO BID 10/03/17 [History] Isosorbide DInitrate [Isosorbide Dinitrate] 50 mg PO TID 10/03/17 [History] Losartan Potassium [Cozaar] 100 mg PO DAILY 10/03/17 [History] NIFEdipine [Nifedipine ER] 60 mg PO DAILY 10/03/17 [History] OxyCODONE Immed Rel [Roxicodone 15 MG] 15 mg PO BID 10/03/17 [History] Renal Vitamin [Renal Caps Softgel] 1 cap PO DAILY 10/03/17 [History] Allergies/Adverse Reactions: 3 Allergy/AdvReac Type Severity Reaction Status Date / Time No Known Allergies Allergy Verified 07/18/16 08:43 Certification: Further, I certify that my clinical findings support that this patient is homebound (i.e. absences from home require considerable and taxing effort and are for medical reasons or mandaeism services or infrequently or short duration when for other reasons) because: Homebound Reason: Patient requires assistance of a person or device to safely leave home Attestation: My signature below is to certify that this patient is under my care and that I, or nurse practitioner, or a physician's research assistant member working with me, has a face-to -face encounter with this patient.
== END 2017-10-10 20:47 | disposition home health service (06) | DRG 305 ==
LOC: 2ANU 04:17 → EMEROOARM 04:17 → 2ANU 05:50 → SUATTDRO 08:22
PROVIDERS: ADMIT Pediatrics; ATTEND Internal Medicine

== ENCOUNTER 2018-06-07 15:55 | Inpatient (IN) ==
[~2018-06-07 15:55] MED LIST: *HR* Dextrose 50 % in Water (Syg) 50 ML SYRINGE IVC ONE; *HR* EPINEPHrine 1 MG/10 ML SYRINGE IVP ONE; *HR* EPINEPHrine 30 MG/30 ML MDV IM ONE; *HR* Norepinephrine 4 MG/4 ML VIAL IVC ONE; D5% in Water 250 ML IV BAG IV ONE
--- NOTE | 2018-06-07 16:13 | Emergency Department Note ---
Disposition Clinical Impression: Cardiac arrest Disposition: Still a Patient Referrals: NONE,PCP [Primary Care Provider] - General Adult HPI - General Chief complaint: ED Cardiac Arrest/CPR Stated complaint: Code Time Seen by Provider: 06/07/18 16:07 Source: EMS Limitations: other - History of Present Illness HPI Narrative: This note serves as a procedure note only. For further details pertaining to HPI, hospital course, and disposition, please see note written by Rick Toth and [employer]. Pain Scale: 0 Past Medical History - Past Medical History Medical history: Reports: other - Social History Smoking Status: Current every day smoker Smokeless Tobacco Status: No Alcohol use: Reports: unknown Drug use: Reports: unknown Physical Exam - General Limitations: other General appearance: alert Course Vital Signs Temperature 0 F L 06/07/18 16:01 Pulse Rate 0 06/07/18 16:01 Respiratory Rate 0 06/07/18 16:01 Blood Pressure 0/0 06/07/18 16:01 O2 Sat by Pulse Oximetry 0 06/07/18 16:01 Temperature 0 F L 06/07/18 16:01 Pulse Rate 130 06/07/18 16:05 Respiratory Rate 14 06/07/18 16:05 Blood Pressure 137/103 06/07/18 16:05 O2 Sat by Pulse Oximetry 99 06/07/18 16:05 Oxygen Delivery Oxygen Delivery Ambu Bag Procedures - Intubation sedative: none Laryngoscope: fiber optic video scope Assist Device Used: fiber optic device ET Tube Size: 7.5 ET Tube Uncuffed: No Tube Secured Depth (cm): 23 Tube Secured Location: teeth Tube Placement Confirmation: visualized tube passing through cords, equal breath sounds bilaterally, no breath sounds over epigastrium, confirmation by capnometry Patient Tolerated Procedure: well Intubation Complications: none
[2018-06-07] MEDS ORDERED: Isovue-370 500 ML BOTTLE IVP ONE (16:15)
[2018-06-07] MEDS ORDERED: 0.9 % Sodium Chloride 1,000 ML IVC ONE (16:18)
[2018-06-07 16:21] LABS: Basophils % 0.5 %; Eosinophils % 1.1 %; Hematocrit 30.2 % (37.5-50.1); Hemoglobin 8.8 g/dL (12.9-16.9); Immature Granulocytes % 3.5 % (0-4); Lymphocytes # 1.7 K/mcL (0.6-4.6); Lymphocytes % 44.5 %; Mean Corpuscular HGB Conc 29.1 g/dL (31.6-35.5); Mean Corpuscular Hemoglobin 31.9 pg (28.0-33.3); Mean Corpuscular Volume 109.4 fL (83.0-100.0); Mean Platelet Volume 11.4 fL (9.4-12.4); Monocytes # 0.3 K/mcL (0.0-1.3); Monocytes % 8.3 %; Neutrophils # 1.6 K/mcL (1.6-8.9); Red Blood Count 2.76 M/mcL (4.19-5.50); Red Cell Distribution Width 15.2 % (11.5-14.5); Segmented Neutrophils % 42.1 %
[2018-06-07 16:32] LABS: INR 1.4; Prothrombin Time 15.8 Seconds (9.4-12.1)
[2018-06-07 16:33] LABS: ABG Base Excess -4 mEq/L (-2 to 3); ABG HCO3 27 mEq/L (21-27); ABG Oxygen Saturation 99 % (95-98); ABG PCO2 100 mmHg (35-45); ABG PH 7.05 pH Units (7.32-7.45); ABG PO2 197 mmHg (85-104); ABG TCO2 31 mEq/L (20-26); Blood Gas Modality ASSIST CONTROL; Blood Gas PEEP 5 cm H2O; Blood Gas Respiration Rate 16; Blood Gas VT 480 cc
[2018-06-07 16:35] LABS: Activated Partial Thrombo Time 43.6 Seconds (26.0-36.0)
[2018-06-07 16:37] LABS: Calcium 9.6 mg/dL (8.6-10.3); Potassium 4.7 mEq/L (3.5-5.1)
[2018-06-07 16:39] LABS: Troponin I 0.03 ng/mL (< 0.04)
[2018-06-07 16:44] LABS: Platelet Count 68 K/mcL (140-400)
[2018-06-07 16:45] LABS: Platelet Estimate Decreased (Normal)
--- NOTE | 2018-06-07 16:49 | Emergency Department Note ---
Disposition Clinical Impression: Cardiac arrest, Pleural effusion Respiratory failure Qualifiers: Chronicity: unspecified Respiratory failure complication: unspecified whether with hypoxia or hypercapnia Qualified Code(s): J96.90 - Respiratory failure, unspecified, unspecified whether with hypoxia or hypercapnia Anemia Qualifiers: Anemia type: unspecified type Qualified Code(s): D64.9 - Anemia, unspecified Chronic renal failure Qualifiers: Chronic kidney disease stage: unspecified stage Qualified Code(s): N18.9 - Chronic kidney disease, unspecified Disposition: Admitted As Inpatient Condition: Serious CPR HPI - General Chief Complaint: ED Cardiac Arrest/CPR Stated Complaint: Code Time Seen by Provider: 06/07/18 16:07 Source: EMS Mode of arrival: EMS Limitations: other Nursing Notes Reviewed: Yes Vital Signs Reviewed: Yes - History of Present Illness HPI Narrative: 58 year old male since in full cardiac arrest. This appeared to have prolonged downtime of approximately 40 minutes. Initial rhythm was asystole. Family not immediately at bedside later on reviewed and said that the patient's been complaining of shortness of breath or the past couple days. Patient does have known diabetes as well as end-stage renal disease on dialysis. Did receive his dialysis treatment earlier on Friday. Patient does receive dialysis Friday. No history of known coronary disease. EMS report that they did defibrillate with V. fib in route but no medications were given. Upon arrival continued the ACLS resuscitation. Patient's airway was obtained. Patient received 1 dose of epinephrine. Noted left upper extremity fistula and immediate concerns for hyperkalemia and calcium and bicarbonate were given. Patient also received glucose and insulin. ROSC was obtained following those administrations. Patient's bedside echo showed good cardiac contractility. No pericardial effusion concerning for tamponade. - Related Data Allergies Allergy/AdvReac Type Severity Reaction Status Date / Time No Known Allergies Allergy Verified 06/07/18 16:33 Limitations: ROS unobtainable due to patients medical condition CPR PMH - Past Medical History Medical history: Reports: other - Social History Smoking Status: Current every day smoker Alcohol use: Reports: unknown Drug use: Reports: unknown Physical Exam - General Limitations: other - Head Head exam: atraumatic, normal inspection - Eye Eye exam: Present: other (4mm fixed and dialated) - ENT ENT exam: other (Supraglottic airway per EMS.) - Neck Neck exam: Present: normal inspection - Chest Chest inspection: Present: symmetric chest wall rise - Respiratory Respiratory exam: Present: other (mechanical breaths) - Cardiovascular Cardiovascular exam: Present: tachycardia. Absent: normal heart sounds - Abdominal Exam Abdominal exam: Present: soft - Extremities Exam Extremities exam: Present: other (Left upper extremity fistula) - Back Exam Back exam: Present: normal inspection - Neurological Exam Neurological exam: Present: other (Unresponsive, no posturing.) - Skin Skin exam: Present: warm, dry, intact, normal color Course Course Narrative: Patient presented for cardiac arrest. Little was known about the patient prior to arrival. Patient does have renal disease with concerns initially for hyper K. Patient was treated and following 1 round of ACLS the patient had return of spontaneous circulation. Immediately contacted cardiology regarding concerns for postarrest STEMI. Patient get a head CT as well as CT angiogram of the chest given concerns for hypoxemic respiratory failure. - Reevaluation(s) Reevaluation #1: Patient presented in full cardiac arrest. Post 12-lead EKG shows elevations of 1 mm in aVR with diffuse ischemic-looking changes. Did immediately speak with Dr. Dillard who reviewed the EKG. Gilma at bedside. Recommend getting a stat echo. Time: 16:48 Reevaluation #2: Given concerns of the pleural effusion or possible aspiration the patient will be covered with antibiotics. Time: 17:40 Reevaluation #3: Patient's lactate and blood gas is improving. Time: 18:34 - Consultations Consultation #1: Updated Dr. Dillard on the CT results. No emergent left heart catheter. We will obtain a stat echo. Time: 17:40 Consultation #2: Consult to Dr. Tinoco aware of the patient. Time: 17:54 Vital Signs Respiratory Rate 18 06/07/18 16:00 O2 Sat by Pulse Oximetry 100 06/07/18 16:00 Temperature 96.5 F L 06/07/18 16:40 Pulse Rate 62 06/07/18 18:31 Respiratory Rate 18 06/07/18 18:12 Blood Pressure 118/62 06/07/18 18:31 O2 Sat by Pulse Oximetry 98 06/07/18 18:31 Oxygen Delivery Oxygen Delivery Ventilator Procedures - Central Line Placement Right Femoral Central Line Inserted*: Yes Central Line Catheter Replacement*: Yes Central Line Insertion: emergent Procedural Pause: verify patient name and date of , timeout performed per policy, kristen and assess the site, assemble equipment and verify supplies, perform hand hygiene Patient Placed on Monitor/Pulse Ox: Yes During the Procedure: clinician is wearing sterile gloves, cap, mask,& gown during insertion, sterile field and sterile technique are maintained Central Line Prep: Chlorhexidine scrub Prep the Procedure Site: apply chloraprep to the skin using a back and forth scrubbing motion Ultrasound Used for Placement: Yes Central Line Lumen Inserted: triple Post Procedure: sutured in place, good blood return, all ports aspirated, flushed, capped, sterile dressing applied, guide wire removed and visualized Patient Tolerated Procedure: well, no complications Complications: none Cardiac Arrest/CPR - MDM Narrative Medical decision making narrative: Patient presented for cardiac arrest. It appears the patient was going to shortness of breath as a prodrome. Return to spontaneous circulation was obtained. Immediate contact with interventional cardiology regarding postarrest EKG. Cardiology at bedside. Patient resuscitation continued and required an epinephrine drip. Patient's potassium was normal. On exam the patient's unresponsive without posturing. Patient's pupils are nonreactive. Concerns of prolonged downtime. Family at bedside updated on plan of care. - Lab Data Lab results reviewed: Yes I reviewed the patient's lab results. Result diagrams: 06/07/18 16:10 06/07/18 16:10 Lab Results 06/07/18 06/07/18 06/07/18 Range/Units 16:10 16:10 16:10 WBC 3.8 L (4.3-11.1) K/mcL RBC 2.76 L (4.19-5.50) M/mcL Hgb 8.8 L (12.9-16.9) g/dL Hct 30.2 L (37.5-50.1) % MCV 109.4 H (83.0-100.0) fL MCH 31.9 (28.0-33.3) pg MCHC 29.1 L (31.6-35.5) g/dL RDW 15.2 H (11.5-14.5) % Plt Count 68 L (140-400) K/mcL MPV 11.4 (9.4-12.4) fL Immature Gran % 3.5 (0-4) % Seg Neutrophils % 42.1 % Lymphocytes % 44.5 % Monocytes % 8.3 % Eosinophils % 1.1 % Basophils % 0.5 % Neutrophils # 1.6 (1.6-8.9) K/mcL Lymphocytes # 1.7 (0.6-4.6) K/mcL Monocytes # 0.3 (0.0-1.3) K/mcL Eosinophils # 0.0 (0.0-0.6) K/mcL Basophils # 0.0 (0.0-0.2) K/mcL Platelet Estimate Decreased L (Normal) PT 15.8 H (9.4-12.1) Seconds INR 1.4 APTT 43.6 H (26.0-36.0) Seconds Sample Site ABG pH (7.32-7.45) pH Units ABG pCO2 (35-45) mmHg ABG pO2 (85-104) mmHg ABG HCO3 (21-27) mEq/L ABG Total CO2 (20-26) mEq/L ABG O2 Saturation (95-98) % ABG Base Excess (-2 to 3) mEq/L Eduardo Test Respiration Rate O2 Delivery Device Blood Gas Modality Inspired O2 (1-15=lpm hl19-306=%) Tidal Volume cc PEEP cm H2O Sodium 142 (136-145) mEq/L Potassium 4.7 (3.5-5.1) mEq/L Chloride 103 (98-107) mEq/L Carbon Dioxide 26 (23-29) mEq/L BUN 32 H (6-20) mg/dL Creatinine 5.21 H (0.70-1.30) mg/dL Est GFR ( Amer) 14 L (> 60) Est GFR (Non-Af Amer) 12 L (> 60) BUN/Creatinine Ratio 6 (6-26) Glucose 229 H (70-105) mg/dL Calculated Osmolality 308 H (280-300) Lactic Acid (0.5-2.2) mmol/L Calcium 9.6 (8.6-10.3) mg/dL Troponin I 0.03 (< 0.04) ng/mL B-Natriuretic Peptide (Less than 100) pg/mL Person Notif of Crit 06/07/18 06/07/18 06/07/18 Range/Units 16:10 16:17 16:28 WBC (4.3-11.1) K/mcL RBC (4.19-5.50) M/mcL Hgb (12.9-16.9) g/dL Hct (37.5-50.1) % MCV (83.0-100.0) fL MCH (28.0-33.3) pg MCHC (31.6-35.5) g/dL RDW (11.5-14.5) % Plt Count (140-400) K/mcL MPV (9.4-12.4) fL Immature Gran % (0-4) % Seg Neutrophils % % Lymphocytes % % Monocytes % % Eosinophils % % Basophils % % Neutrophils # (1.6-8.9) K/mcL Lymphocytes # (0.6-4.6) K/mcL Monocytes # (0.0-1.3) K/mcL Eosinophils # (0.0-0.6) K/mcL Basophils # (0.0-0.2) K/mcL Platelet Estimate (Normal) PT (9.4-12.1) Seconds INR APTT (26.0-36.0) Seconds Sample Site R Radial ABG pH 7.05 L* (7.32-7.45) pH Units ABG pCO2 100 H* (35-45) mmHg ABG pO2 197 H (85-104) mmHg ABG HCO3 27 (21-27) mEq/L ABG Total CO2 31 H (20-26) mEq/L ABG O2 Saturation 99 H (95-98) % ABG Base Excess -4 L (-2 to 3) mEq/L Eduardo Test N/A Respiration Rate 16 O2 Delivery Device Adult Vent Blood Gas Modality ASSIST CONTROL Inspired O2 100.0 (1-15=lpm ix59-161=%) Tidal Volume 480 cc PEEP 5 cm H2O Sodium (136-145) mEq/L Potassium (3.5-5.1) mEq/L Chloride (98-107) mEq/L Carbon Dioxide (23-29) mEq/L BUN (6-20) mg/dL Creatinine (0.70-1.30) mg/dL Est GFR ( Amer) (> 60) Est GFR (Non-Af Amer) (> 60) BUN/Creatinine Ratio (6-26) Glucose (70-105) mg/dL Calculated Osmolality (280-300) Lactic Acid 8.5 H* (0.5-2.2) mmol/L Calcium (8.6-10.3) mg/dL Troponin I (< 0.04) ng/mL B-Natriuretic Peptide 3722 H (Less than 100) pg/mL Person Notif of Crit 06/07/18 06/07/18 Range/Units 17:20 18:00 WBC (4.3-11.1) K/mcL RBC (4.19-5.50) M/mcL Hgb (12.9-16.9) g/dL Hct (37.5-50.1) % MCV (83.0-100.0) fL MCH (28.0-33.3) pg MCHC (31.6-35.5) g/dL RDW (11.5-14.5) % Plt Count (140-400) K/mcL MPV (9.4-12.4) fL Immature Gran % (0-4) % Seg Neutrophils % % Lymphocytes % % Monocytes % % Eosinophils % % Basophils % % Neutrophils # (1.6-8.9) K/mcL Lymphocytes # (0.6-4.6) K/mcL Monocytes # (0.0-1.3) K/mcL Eosinophils # (0.0-0.6) K/mcL Basophils # (0.0-0.2) K/mcL Platelet Estimate (Normal) PT (9.4-12.1) Seconds INR APTT (26.0-36.0) Seconds Sample Site R Radial ABG pH 7.31 L D (7.32-7.45) pH Units ABG pCO2 51 H D (35-45) mmHg ABG pO2 85 D (85-104) mmHg ABG HCO3 26 (21-27) mEq/L ABG Total CO2 27 H (20-26) mEq/L ABG O2 Saturation 95 (95-98) % ABG Base Excess -1 (-2 to 3) mEq/L Eduardo Test Respiration Rate 18 O2 Delivery Device Adult Vent Blood Gas Modality ASSIST CONTROL Inspired O2 50.0 (1-15=lpm la56-719=%) Tidal Volume 480 cc PEEP 5 cm H2O Sodium (136-145) mEq/L Potassium (3.5-5.1) mEq/L Chloride (98-107) mEq/L Carbon Dioxide (23-29) mEq/L BUN (6-20) mg/dL Creatinine (0.70-1.30) mg/dL Est GFR ( Amer) (> 60) Est GFR (Non-Af Amer) (> 60) BUN/Creatinine Ratio (6-26) Glucose (70-105) mg/dL Calculated Osmolality (280-300) Lactic Acid 6.4 H* (0.5-2.2) mmol/L Calcium (8.6-10.3) mg/dL Troponin I (< 0.04) ng/mL B-Natriuretic Peptide (Less than 100) pg/mL Person Notif of Crit - Radiology Data Radiology results reviewed: Yes I reviewed the patient's radiology results. Chest X-Ray 06/07/18 16:08 IMPRESSION: Increased opacification in the right hemithorax most likely representing a large right pleural effusion. D/ / Jaswinder Love MD / Jaswinder Love MD Interpreting Provider: Jaswinder Love MD - EKG Data EKG attestation: Yes I reviewed and interpreted this EKG. EKG shows normal: sinus rhythm Rate: tachycardia Rhythm: NSR [place]/QRS: normal ST segment elevation in: aVR, v1 ST segment depression in: II, III, v4, v5, v6 When compared to previous EKG there are: changes noted Interpretation: nonspecific ST-T wave changes S.B.A.R. - S.B.A.R. Situation: Demographics Background: Presenting Complaint Assessment: Vital Signs, Course and respsone to treatment, Patient/Family Expectation Recommendation: Barrier(s) to disposition, Recommendation based on pending studies, treatments, or consults S.B.A.R. Report Given to: Dr. Patten
--- NOTE | 2018-06-07 16:55 | Emergency Department Note ---
Disposition Clinical Impression: Cardiac arrest, Pleural effusion, Respiratory failure, Anemia, Chronic renal failure Disposition: Still a Patient Condition: Serious Referrals: NONE,PCP [Primary Care Provider] - Forms: ED Satisfaction Letter General Adult HPI - General Chief complaint: ED Cardiac Arrest/CPR Stated complaint: Code Time Seen by Provider: 06/07/18 16:07 Source: EMS Mode of arrival: EMS Limitations: other - History of Present Illness Pain Scale: 0 - Related Data Allergies Allergy/AdvReac Type Severity Reaction Status Date / Time No Known Allergies Allergy Verified 06/07/18 16:33 Past Medical History - Past Medical History Medical history: Reports: other - Social History Smoking Status: Current every day smoker Smokeless Tobacco Status: No Alcohol use: Reports: unknown Drug use: Reports: unknown Physical Exam - General Limitations: other General appearance: alert Course Vital Signs Respiratory Rate 18 06/07/18 16:00 O2 Sat by Pulse Oximetry 100 06/07/18 16:00 Temperature 96.5 F L 06/07/18 16:40 Pulse Rate 71 06/07/18 17:34 Respiratory Rate 12 06/07/18 17:34 Blood Pressure 132/64 06/07/18 17:34 O2 Sat by Pulse Oximetry 97 06/07/18 17:34 Oxygen Delivery Oxygen Delivery Ventilator Medical Decision Making - MDM Narrative Medical decision making narrative: Patient presented in cardiac arrest from home. Reports were that he felt short of breath yesterday and today. Collapsed at home. Seen by mother at that time. She called EMS. They arrived and found the patient to be in V. fib arrest. They did give 1 defibrillated shock. Patient was transported to the ER. There was a prolonged transportation time of around 30 minutes total. Upon arrival, ACLS guidelines were followed. CPR was in progress. The airway was secured Dr. Santiago. Patient was given epinephrine as well as calcium, 3 A of sodium bicarbonate, 10 units of insulin, 1 amp D50. We did return a spontaneous pulse with a blood pressure. He was started on a low-dose epi drip. We consulted with cardiology with concerns on the EKG for possible postarrest ST elevation [place]. Patient was seen in the ER by Dr. Dillard. Did not feel it was emergent to take the patient to [facility] at this time. Repeat EKG did not show any ST elevation. Patient had near white out of the right lung likely a large pleural effusion. Plan at this time is to do a stat echo to assist ventricular wall motion. Patient be admitted to the ICU. Continue ventilator support. will add iv antibiotics as well due to the lung issue. CT of the head did not show any acute process. - Medical Records Medical records reviewed: Yes I reviewed the patient's medical records. - Lab Data Lab results reviewed: Yes I reviewed the patient's lab results. Result diagrams: 06/07/18 16:10 06/07/18 16:10 Lab Results 06/07/18 06/07/18 06/07/18 Range/Units 16:10 16:10 16:10 WBC 3.8 L (4.3-11.1) K/mcL RBC 2.76 L (4.19-5.50) M/mcL Hgb 8.8 L (12.9-16.9) g/dL Hct 30.2 L (37.5-50.1) % MCV 109.4 H (83.0-100.0) fL MCH 31.9 (28.0-33.3) pg MCHC 29.1 L (31.6-35.5) g/dL RDW 15.2 H (11.5-14.5) % Plt Count 68 L (140-400) K/mcL MPV 11.4 (9.4-12.4) fL Immature Gran % 3.5 (0-4) % Seg Neutrophils % 42.1 % Lymphocytes % 44.5 % Monocytes % 8.3 % Eosinophils % 1.1 % Basophils % 0.5 % Neutrophils # 1.6 (1.6-8.9) K/mcL Lymphocytes # 1.7 (0.6-4.6) K/mcL Monocytes # 0.3 (0.0-1.3) K/mcL Eosinophils # 0.0 (0.0-0.6) K/mcL Basophils # 0.0 (0.0-0.2) K/mcL Platelet Estimate Decreased L (Normal) PT 15.8 H (9.4-12.1) Seconds INR 1.4 APTT 43.6 H (26.0-36.0) Seconds Sample Site ABG pH (7.32-7.45) pH Units ABG pCO2 (35-45) mmHg ABG pO2 (85-104) mmHg ABG HCO3 (21-27) mEq/L ABG Total CO2 (20-26) mEq/L ABG O2 Saturation (95-98) % ABG Base Excess (-2 to 3) mEq/L Eduardo Test Respiration Rate O2 Delivery Device Blood Gas Modality Inspired O2 (1-15=lpm la71-268=%) Tidal Volume cc PEEP cm H2O Sodium 142 (136-145) mEq/L Potassium 4.7 (3.5-5.1) mEq/L Chloride 103 (98-107) mEq/L Carbon Dioxide 26 (23-29) mEq/L BUN 32 H (6-20) mg/dL Creatinine 5.21 H (0.70-1.30) mg/dL Est GFR ( Amer) 14 L (> 60) Est GFR (Non-Af Amer) 12 L (> 60) BUN/Creatinine Ratio 6 (6-26) Glucose 229 H (70-105) mg/dL Calculated Osmolality 308 H (280-300) Lactic Acid (0.5-2.2) mmol/L Calcium 9.6 (8.6-10.3) mg/dL Troponin I 0.03 (< 0.04) ng/mL B-Natriuretic Peptide (Less than 100) pg/mL Person Notif of Crit 06/07/18 06/07/18 06/07/18 Range/Units 16:10 16:17 16:28 WBC (4.3-11.1) K/mcL RBC (4.19-5.50) M/mcL Hgb (12.9-16.9) g/dL Hct (37.5-50.1) % MCV (83.0-100.0) fL MCH (28.0-33.3) pg MCHC (31.6-35.5) g/dL RDW (11.5-14.5) % Plt Count (140-400) K/mcL MPV (9.4-12.4) fL Immature Gran % (0-4) % Seg Neutrophils % % Lymphocytes % % Monocytes % % Eosinophils % % Basophils % % Neutrophils # (1.6-8.9) K/mcL Lymphocytes # (0.6-4.6) K/mcL Monocytes # (0.0-1.3) K/mcL Eosinophils # (0.0-0.6) K/mcL Basophils # (0.0-0.2) K/mcL Platelet Estimate (Normal) PT (9.4-12.1) Seconds INR APTT (26.0-36.0) Seconds Sample Site R Radial ABG pH 7.05 L* (7.32-7.45) pH Units ABG pCO2 100 H* (35-45) mmHg ABG pO2 197 H (85-104) mmHg ABG HCO3 27 (21-27) mEq/L ABG Total CO2 31 H (20-26) mEq/L ABG O2 Saturation 99 H (95-98) % ABG Base Excess -4 L (-2 to 3) mEq/L Eduardo Test N/A Respiration Rate 16 O2 Delivery Device Adult Vent Blood Gas Modality ASSIST CONTROL Inspired O2 100.0 (1-15=lpm qq51-281=%) Tidal Volume 480 cc PEEP 5 cm H2O Sodium (136-145) mEq/L Potassium (3.5-5.1) mEq/L Chloride (98-107) mEq/L Carbon Dioxide (23-29) mEq/L BUN (6-20) mg/dL Creatinine (0.70-1.30) mg/dL Est GFR ( Amer) (> 60) Est GFR (Non-Af Amer) (> 60) BUN/Creatinine Ratio (6-26) Glucose (70-105) mg/dL Calculated Osmolality (280-300) Lactic Acid 8.5 H* (0.5-2.2) mmol/L Calcium (8.6-10.3) mg/dL Troponin I (< 0.04) ng/mL B-Natriuretic Peptide 3722 H (Less than 100) pg/mL Person Notif of Crit 06/07/18 Range/Units 17:20 WBC (4.3-11.1) K/mcL RBC (4.19-5.50) M/mcL Hgb (12.9-16.9) g/dL Hct (37.5-50.1) % MCV (83.0-100.0) fL MCH (28.0-33.3) pg MCHC (31.6-35.5) g/dL RDW (11.5-14.5) % Plt Count (140-400) K/mcL MPV (9.4-12.4) fL Immature Gran % (0-4) % Seg Neutrophils % % Lymphocytes % % Monocytes % % Eosinophils % % Basophils % % Neutrophils # (1.6-8.9) K/mcL Lymphocytes # (0.6-4.6) K/mcL Monocytes # (0.0-1.3) K/mcL Eosinophils # (0.0-0.6) K/mcL Basophils # (0.0-0.2) K/mcL Platelet Estimate (Normal) PT (9.4-12.1) Seconds INR APTT (26.0-36.0) Seconds Sample Site R Radial ABG pH 7.31 L D (7.32-7.45) pH Units ABG pCO2 51 H D (35-45) mmHg ABG pO2 85 D (85-104) mmHg ABG HCO3 26 (21-27) mEq/L ABG Total CO2 27 H (20-26) mEq/L ABG O2 Saturation 95 (95-98) % ABG Base Excess -1 (-2 to 3) mEq/L Eduardo Test Respiration Rate 18 O2 Delivery Device Adult Vent Blood Gas Modality ASSIST CONTROL Inspired O2 50.0 (1-15=lpm em10-265=%) Tidal Volume 480 cc PEEP 5 cm H2O Sodium (136-145) mEq/L Potassium (3.5-5.1) mEq/L Chloride (98-107) mEq/L Carbon Dioxide (23-29) mEq/L BUN (6-20) mg/dL Creatinine (0.70-1.30) mg/dL Est GFR ( Amer) (> 60) Est GFR (Non-Af Amer) (> 60) BUN/Creatinine Ratio (6-26) Glucose (70-105) mg/dL Calculated Osmolality (280-300) Lactic Acid (0.5-2.2) mmol/L Calcium (8.6-10.3) mg/dL Troponin I (< 0.04) ng/mL B-Natriuretic Peptide (Less than 100) pg/mL Person Notif of Crit - Radiology Data Radiology results reviewed: Yes I reviewed the patient's radiology results. - EKG Data EKG #1 EKG attestation: Yes I reviewed and interpreted this EKG. EKG results narrative: EKG shows a rate of 102. Sinus tachycardia. RI interval 184. QRS 124. QTC 426. Patient has elevation in aVR. Has some reciprocal changes in the lateral and inferior leads. Critical Care Time Critical Care Time: Yes Total Critical Care Time: 45 Attestation: Critical care time of 45 minutes spent in medical management of respiratory failure status post cardiac arrest. Attestation Statement - Attestation Attestation: I examined this patient and my medical decision-making was reviewed with the Resident Physician. I agree with the documented findings, disposition and treatment plan as described except to the extent set forth below.
[2018-06-07] MEDS ORDERED: 0.9 % Sodium Chloride 1,000 ML IVC SCH (17:00)
[2018-06-07 17:24] LABS: ABG Base Excess -1 mEq/L (-2 to 3); ABG HCO3 26 mEq/L (21-27); ABG Oxygen Saturation 95 % (95-98); ABG PCO2 51 mmHg (35-45); ABG PH 7.31 pH Units (7.32-7.45); ABG PO2 85 mmHg (85-104); ABG TCO2 27 mEq/L (20-26); Blood Gas Modality ASSIST CONTROL; Blood Gas PEEP 5 cm H2O; Blood Gas Respiration Rate 18; Blood Gas VT 480 cc
--- NOTE | 2018-06-07 17:29 | Event Note ---
Date of Encounter: 06/07/18 Time of Encounter: 17:24 - Cardiology Event Note 58 YOM ith hx of DM, HTN, CKD here after TLOC without chest pain. Initial EKG reveals global ischemia likely rate related while on epinephrine drip. Apparently 1 hour downtime no signs of posturing at this time. EKG at 63 bpm much improved with inferolateral ischmic changes. No definitive signs of ischemic event. Bedside echo preserved EF by ER. Full ECHO pending. Hypercapnia and right lung white out potential culprit. No current strong indication to pursue LHC. D/W Dr. Polanco will obtain serial cardiac markers and await result of Echo. If elevated or RWMA will reconsider. Patient likely would need an ischemic evaluation during this hospital admission. None on record.
[2018-06-07] MEDS ORDERED: Piperacillin/Tazobactam 3.375 GM in Water for inj. (sterile) 20 ML 20 ML IVP ONE (17:31)
[2018-06-07] MEDS ORDERED: Naloxone 0.4 MG/ML INJ IVP PRN (17:44)
--- NOTE | 2018-06-07 18:02 | Internal Med History&Physical ---
Date of Encounter: 06/07/18 Time of Encounter: 17:30 Internal Medicine - H&P: HPI Chief complaint: cardiac arrest Admitted From: Home History of present illness: Mr. Weaver is a 58 year old male with history of diabetes, chronic respiratory failure on 2 L of oxygen, ESRD on hemodialysis Friday, who presented to the ED with cardiac arrest. WItnessed by his mother at 330pm, asystole upon EMS arrival, reported to be in vfib en route requiring 1 shock, and had 1 cycle of resuscitation with epinephrine in the ED before ROSC. Total downtime ~ 50-60mins. Family at bedside states that he has had progressive dypsnea for the last 7-10 days and had to increase the O2 flow constantly. However, he did not recently complain any chest pain, cough, sputum production, fever/chills, nausea/vomiting, or sick contacts. Had complete dialysis session on Friday. At the time of the interview, his HR was 71 with BP of 132/64 on Epi gtt and with good saturation on ventilator. Workup showed respiratory acidosis with pH 7.05 and pCO2 100. Lactic acid was also elevated at 8.5. Troponin -ve, BNP 3722. EKG initially was concerning for global ischemia but was deemed likely rate related while on epinephrine drip after discussing with cardiology. Repeat EKG showed much improved changes. No PE on CTA but showed large pleural effusion on the right. Otherwise, no leukocytosis, normal K, creatinine 5.21, and platelet of 68. ABG done 1 hour after also showed significant increase in respiratory acidosis. Pt will be admitted to ICU for further management. Past Med Surg Social Fam HX - Past Medical History Medical history: other - Social History Smoking Status: Current every day smoker Smokeless Tobacco Status: No Alcohol use: unknown Drug use: unknown Internal Medicine - H&P: Meds Allergy/AdvReac Type Severity Reaction Status Date / Time No Known Allergies Allergy Verified 06/07/18 16:33 ROS unobtainable: due to endotracheal tube, due to mental status All Systems PM: A 10-system review of systems was performed and is negative for pertinent findin gs except as documented above in the HPI. - Constitutional Vitals: Temp Pulse Resp BP Pulse Ox 96.5 F L 71 12 132/64 97 06/07/18 16:40 06/07/18 17:34 06/07/18 17:34 06/07/18 17:34 06/07/18 17:34 Exam: General: on ETT, non-responsive HEENT: pupils equal, round and reactive. Cardiovascular:Normal S1 & S2, No JVD. Pulse regular. Lungs: Diminished breath sounds R>L, no rhonchi/wheezes Abdomen:Soft, non-tender, no rigidity. Extremities:No deformity or swelling Neurological: unresponsive Skin:Normal color, no rash, no lesions. Pulses:Carotid and radial pulses normal +2. Rest of the physical exam is non contributory Internal Med - H&P Results - Labs CBC & Chem 7: 06/07/18 16:10 06/07/18 16:10 Labs: Short CBC 06/07/18 Range/Units 16:10 WBC 3.8 L (4.3-11.1) K/mcL Hgb 8.8 L (12.9-16.9) g/dL Hct 30.2 L (37.5-50.1) % Plt Count 68 L (140-400) K/mcL Neutrophils # 1.6 (1.6-8.9) K/mcL BMP 06/07/18 16:10 Sodium 142 Potassium 4.7 Chloride 103 Carbon Dioxide 26 BUN 32 H Creatinine 5.21 H Glucose 229 H Calcium 9.6 Cardiac Enzymes 06/07/18 Range/Units 16:10 Troponin I 0.03 (< 0.04) ng/mL - ABG Interpretation ABG results: 06/07/18 06/07/18 16:28 17:20 ABG pH 7.05 L* 7.31 L D ABG pCO2 100 H* 51 H D ABG pO2 197 H 85 D ABG HCO3 27 26 ABG Total CO2 31 H 27 H ABG O2 Saturation 99 H 95 ABG Base Excess -4 L -1 - Impressions ITS Impressions Chest X-Ray 06/07/18 16:08 IMPRESSION: Increased opacification in the right hemithorax most likely representing a large right pleural effusion. D/ / Jaswinder Love MD / Jaswinder Love MD Interpreting Provider: Jaswinder Love MD Chest CTA 06/07/18 16:15 IMPRESSION: Limited evaluation due to motion and bolus timing. No gross evidence of central or proximal segmental pulmonary embolus. No acute aortic abnormality. Near complete opacification of the right hemithorax. Large right pleural effusion. Underlying opacity likely atelectasis with pneumonia not excluded. Small-moderate left pleural effusion. Multiple right anterior rib fractures. D/ / 06/07/2018 17:28:56 Mike Delacruz MD / miguel Interpreting Provider: Mike Delacruz MD Head CT 06/07/18 16:15 IMPRESSION: Basal ganglia structures echols-white differentiation less conspicuous than what is normal expected. This could be sequelae of CT technique. If there is concern for hypoxic injury, repeat head CT in several hours or MRI brain may also be considered. D/ / Enoc Aquino / Enoc Aquino Interpreting Provider: Enoc Aquino - Assessment and Plan (1) Cardiac arrest Current Visit: Yes Status: Acute Assessment and plan: likely due to hypercapnic respiratory failure from R>L pleural effusion, unlikely to represent PNA but underlying opacity cannot be entirely excluded on CT ROSC after 1 cycle of resuscitation with EPI Initial EKG was concerning for global ischemia but repeat EKG showed significant improvement along with normal troponin. Reviewed with cardiology no evidence of PE on CTA stat echo is currently being performed trend troponin follow with cardiology started on vanc/zosyn, will continue for today mx for respiratory failure as below continue epinephrine gtt for now (2) Acute on chronic respiratory failure with hypercapnia Current Visit: Yes Status: Acute Assessment and plan: Likely due to worsening pleural effusion refractory to dialysis possibility of PNA is also present although less likely consideration was given for immediate thoracentesis but pt's respiratory acidosis rapidly improved after being placed on ventilator for 30-45 mins will stabilize the pt first overnight, defer the decision for thoracentesis to ICU team tomorrow morning continue empiric vanc/zosyn for now repeat ABG at 10pm (3) Pleural effusion Current Visit: Yes Status: Acute Assessment and plan: pt on chronic dialysis for ESRD but has refractory R pleural effusion will likely need diagnostic/therapeutic thoracentesis, defer to ICU team tomorrow as the ventilatory status rapidly improved on mechanical ventilation tx PNA as above (4) Lactic acidosis Current Visit: Yes Status: Acute Assessment and plan: Likely due to prolonged downtime trend (5) ESRD (end stage renal disease) on dialysis Current Visit: Yes Status: Chronic Assessment and plan: Nephro consult for inpt dialysis renally dosed abx (6) Abnormal CT of brain Current Visit: Yes Status: Acute Assessment and plan: CT had demonstrated loss of austin-white differentiation in basal ganglia more than what is expected ?anoxic brain injury repeat CT or perform MRI tomorrow once pt is stablized (7) Diabetes Current Visit: Yes Status: Chronic Assessment and plan: low dose sliding scale Q6 Qualifiers: Diabetes mellitus type: type 2 Diabetes mellitus terminal supervisor insulin use: unspecified terminal supervisor insulin use status Diabetes mellitus complication status: with unspecified complications Qualified Code(s): E11.8 - Type 2 diabetes mellitus with unspecified complications (8) DVT prophylaxis Current Visit: Yes Status: Acute Assessment and plan: EPCD given thrombocytopenia - Time Spent With Patient Total time spent is greater than 50% in coordination of care (as documented) at patient's floor/unit and/or counseling patient: Greater than 35 minutes
[2018-06-07] MEDS ORDERED: D5% in Water 1,000 ML IVC PRN (18:12)
[2018-06-07] MEDS ORDERED: Dextrose Gel 15 GM/37.5 ML TUBE PO PRN ×2 (18:12)
[2018-06-07] MEDS: EPINEPHrine 1 MG in D5% in Water 250 ML IVC SCH (22:29)
[2018-06-07 22:38] LABS: ABG Base Excess 2 mEq/L (-2 to 3); ABG HCO3 25 mEq/L (21-27); ABG Oxygen Saturation 96 % (95-98); ABG PCO2 28 mmHg (35-45); ABG PH 7.55 pH Units (7.32-7.45); ABG PO2 67 mmHg (85-104); ABG TCO2 25 mEq/L (20-26); Blood Gas Modality ASSIST CONTROL; Blood Gas PEEP 5 cm H2O; Blood Gas Respiration Rate 18; Blood Gas VT 480 cc
[2018-06-08] MEDS: FentaNYL (PF) 1,000 MCG in 0.9 % Sodium Chloride 80 ML IVC SCH ×2 (01:04→16:33)
[2018-06-08] MEDS: Dexmedetomidine HCl 400 MCG/100 ML MLS IVC SCH ×2 (01:04→16:33)
[2018-06-08] MEDS: Insulin LISPRO 300 UNITS/3 ML VIAL SQ SCH ×4 (01:05→18:12)
[2018-06-08] MEDS: EPINEPHrine 1 MG in D5% in Water 250 ML IVC SCH (01:45)
[2018-06-08 04:30] LABS: Eosinophils % 1.6 %; Immature Granulocytes % 0.3 % (0-4); Mean Platelet Volume 11.1 fL (9.4-12.4); Red Cell Distribution Width 14.9 % (11.5-14.5)
[2018-06-08 04:32] LABS: Basophils % 0.3 %; Eosinophils # 0.1 K/mcL (0.0-0.6); Hematocrit 28.1 % (37.5-50.1); Hemoglobin 9.2 g/dL (12.9-16.9); Immature Platelets 4.5 % (1.1-6.1); Lymphocytes # 0.4 K/mcL (0.6-4.6); Lymphocytes % 10.9 %; Mean Corpuscular HGB Conc 32.7 g/dL (31.6-35.5); Mean Corpuscular Hemoglobin 32.2 pg (28.0-33.3); Mean Corpuscular Volume 98.3 fL (83.0-100.0); Monocytes # 0.2 K/mcL (0.0-1.3); Monocytes % 5.1 %; Neutrophils # 3.1 K/mcL (1.6-8.9); Red Blood Count 2.86 M/mcL (4.19-5.50); Segmented Neutrophils % 81.8 %
[2018-06-08 04:33] LABS: Platelet Count 89 K/mcL (140-400)
[2018-06-08 04:41] LABS: INR 1.6; Prothrombin Time 17.9 Seconds (9.4-12.1)
[2018-06-08 04:48] LABS: Calcium 8.8 mg/dL (8.6-10.3); Phosphorous 1.7 mg/dL (2.7-4.5)
[2018-06-08 04:53] LABS: ABG Base Excess 4 mEq/L (-2 to 3); ABG HCO3 28 mEq/L (21-27); ABG Oxygen Saturation 95 % (95-98); ABG PCO2 37 mmHg (35-45); ABG PH 7.49 pH Units (7.32-7.45); ABG PO2 68 mmHg (85-104); ABG TCO2 29 mEq/L (20-26); Blood Gas Modality ASSIST CONTROL; Blood Gas PEEP 5 cm H2O; Blood Gas Respiration Rate 14; Blood Gas VT 480 cc
[2018-06-08 05:16] LABS: Platelet Estimate Decreased (Normal)
[2018-06-08] MEDS: Piperacillin/Tazobactam 3.375 GM in 0.9 % Sodium Chloride Mini Bag 100 ML IVPB SCH ×2 (05:22→18:15)
[2018-06-08] MEDS ORDERED: 0.9 % Sodium Chloride 250 ML IVC PRN (07:09)
[2018-06-08] MEDS ORDERED: 0.9 % Sodium Chloride 1,000 ML PRIME SCH (07:15)
[2018-06-08 08:25] LABS: ABG Base Excess 3 mEq/L (-2 to 3); ABG HCO3 27 mEq/L (21-27); ABG Oxygen Saturation 93 % (95-98); ABG PCO2 39 mmHg (35-45); ABG PH 7.45 pH Units (7.32-7.45); ABG PO2 64 mmHg (85-104); ABG TCO2 28 mEq/L (20-26); Blood Gas Modality VC; Blood Gas PEEP 5 cm H2O; Blood Gas Respiration Rate 12; Blood Gas VT 450 cc
[2018-06-08] MEDS ORDERED: Vancomycin 1 EACH in EMPTY BAG 1 EACH IVPB SCH (09:00)
--- NOTE | 2018-06-08 09:58 | Pulmonology Consult Note ---
<Adrián Mittal - Last Filed: 06/08/18 19:38> Date of Encounter: 06/08/18 Time of Encounter: 09:58 Assessment and Plan (1) Unresponsive state Current Visit: Yes Status: Acute Patient is currently unresponsive to any stimuli Likely secondary to anoxic brain injury from cardiac arrest EEG today nonspecific, however showing little activity, neurology following Neurology planning further imaging tomorrow (2) Acute on chronic respiratory failure with hypercapnia Current Visit: Yes Status: Acute Patient currently intubated, no sedation Acute on chronic respiratory failure likely secondary to cardiac arrest Patient is breathing some over the event but is not showing signs of responsiveness Not currently candidate for extubation (3) End-stage renal disease on hemodialysis Current Visit: Yes Status: Acute History of ESRD requiring dialysis Patient was apparently trying to get renal transplant but was not deemed to be clinically suitable secondary to pleural effusion Cause of pleural effusion is unknown at this time Nephrology evaluated the patient and started dialysis today (4) Cardiac arrest Current Visit: Yes Status: Acute Cardiac arrests prior to admission with approximately 1 hour downtime Cardiology evaluated, deferring ischemic workup until respiratory status improves (5) Pleural effusion Current Visit: Yes Status: Acute Significant pleural effusion present on admission chest CT Cause unknown, apparently patient was being dialyzed an effort to reduce pleural effusion Chest tube placed today, 2 L immediately evacuated, evacuation was paused We will continue to remove fluid in measured pace History of Present Illness Consult date: 06/07/18 Requesting physician: Hunter Polanco Reason for consult: other (Acute respiratory failure) Chief complaint: Cardiac arrest History of present illness: Patient is a 58-year-old male with history of diabetes, chronic respiratory failure on 2 L of home oxygen, ESRD on hemodialysis Friday/Friday/Friday who presented to the ED after cardiac arrest. Apparently this was witnessed and by the time he arrived via EMS and [place] was achieved the patient had been down approximately 1 hour. Labs on admission demonstrated respiratory acidosis, lactic acidosis. Patient was intubated and admitted to ICU. Past Med Surg Social Fam HX - Past Medical History Medical history: other Additional medical history: heart cath 2017 Psychiatric history: no psych history - Past Surgical History Surgical History: appendectomy, other Additional surgical history: R FOOT SURGERY. toe amputation 11/04/2017 - Social History Smoking Status: Current every day smoker Smokeless Tobacco Status: No Alcohol use: unknown Drug use: unknown Medications and Allergies Calcium Acetate [Phos-LO] 2,001 mg PO TIDWM 02/09/15 [History] Atorvastatin [Lipitor] 40 mg PO DAILY 10/03/17 [History] Bumetanide [Bumex] 1 mg PO DAILY 10/03/17 [History] Docusate Sodium [Dok] 100 mg PO BID 10/03/17 [History] Isosorbide DInitrate [Isosorbide Dinitrate] 50 mg PO TID 10/03/17 [History] Losartan Potassium [Cozaar] 100 mg PO DAILY 10/03/17 [History] NIFEdipine [Nifedipine ER] 60 mg PO DAILY 10/03/17 [History] OxyCODONE Immed Rel [Roxicodone 15 MG] 7.5 mg PO QID PRN 10/03/17 [History] Renal Vitamin [Renal Caps Softgel] 1 cap PO DAILY 10/03/17 [History] Aspirin [Adult Aspirin Regimen] 81 mg PO DAILY 06/08/18 [History] Lidocaine/Prilocaine [Emla] 1 appl TP AD 06/08/18 [History] Allergy/AdvReac Type Severity Reaction Status Date / Time No Known Allergies Allergy Verified 06/08/18 09:21 ROS unobtainable: due to endotracheal tube, due to mental status All Systems: The remainder of the systems were reviewed and are negative Physical Examination Vital Signs: Vital Signs, Last 4 Hours Temp Pulse Resp BP Pulse Ox 06/08/18 08:00 92 F L 45 14 101/65 100 06/08/18 07:42 14 109/69 98 06/08/18 07:00 33 F L 42 14 105/66 98 06/08/18 06:00 32.8 F L 44 15 121/62 99 General appearance: no acute distress (Intubated) Neck: supple Effort: other (Mechanically ventilated) Inspection: normal Auscultation: bilateral: rales, rhonchi Cardiovascular: regular rate and rhythm Gastrointestinal: absent bowel sounds, soft, non-distended Integumentary: normal Extremities: no cyanosis, no edema Musculoskeletal: other (Status post toe amputation) unable to assess due to mental status Ventilator Settings Ventilator Settings: Ventilator Settings, Last 8 Hours Ventilator Tidal Volume 450 Setting Ventilator Tidal Volume 480 Setting Ventilator Tidal Volume 450 Setting Ventilator Tidal Volume 480 Setting Ventilator Tidal Volume 480 Setting Ventilator Tidal Volume 500 Setting Ventilator Tidal Volume 480 Setting Ventilator Tidal Volume 480 Setting Ventilator Tidal Volume 480 Setting Ventilator Respiratory Rate 16 Setting Ventilator Respiratory Rate 14 Setting Ventilator Respiratory Rate 12 Setting Ventilator Respiratory Rate 14 Setting Ventilator Respiratory Rate 14 Setting Ventilator Respiratory Rate 18 Setting Ventilator Respiratory Rate 14 Setting Ventilator Respiratory Rate 14 Setting Ventilator Respiratory Rate 14 Setting Actual Respiratory Rate 14 Actual Respiratory Rate 15 Actual Respiratory Rate 14 Actual Respiratory Rate 15 Positive End Expiratory 5 Pressure Positive End Expiratory 5 Pressure Positive End Expiratory 5 Pressure Positive End Expiratory 5 Pressure Positive End Expiratory 5 Pressure Positive End Expiratory 5 Pressure Positive End Expiratory 5 Pressure Positive End Expiratory 5 Pressure Positive End Expiratory 5 Pressure Peak Inspiratory Airway 30 Pressure Peak Inspiratory Airway 32 Pressure Peak Inspiratory Airway 27 Pressure Peak Inspiratory Airway 29 Pressure Peak Inspiratory Airway 29 Pressure Peak Inspiratory Airway 23 Pressure Results - Laboratory Findings CBC and BMP: 06/08/18 04:05 06/08/18 04:05 ABG ABG pH 7.45 pH Units (7.32-7.45) 06/08/18 08:21 ABG pCO2 39 mmHg (35-45) 06/08/18 08:21 ABG pO2 64 mmHg (85-104) L 06/08/18 08:21 ABG O2 Saturation 93 % (95-98) L 06/08/18 08:21 PT/INR, D-dimer PT 17.9 Seconds (9.4-12.1) H 06/08/18 04:05 Abnormal lab findings: Abnormal lab results WBC 3.8 K/mcL (4.3-11.1) L 06/08/18 04:05 RBC 2.86 M/mcL (4.19-5.50) L 06/08/18 04:05 Hgb 9.2 g/dL (12.9-16.9) L 06/08/18 04:05 Hct 28.1 % (37.5-50.1) L 06/08/18 04:05 MCV 109.4 fL (83.0-100.0) H 06/07/18 16:10 MCHC 29.1 g/dL (31.6-35.5) L 06/07/18 16:10 RDW 14.9 % (11.5-14.5) H 06/08/18 04:05 Plt Count 89 K/mcL (140-400) L 06/08/18 04:05 0.4 K/mcL (0.6-4.6) L 06/08/18 04:05 Decreased (Normal) L 06/08/18 04:05 PT 17.9 Seconds (9.4-12.1) H 06/08/18 04:05 APTT 43.6 Seconds (26.0-36.0) H 06/07/18 16:10 ABG pH 7.49 pH Units (7.32-7.45) H 06/08/18 04:50 ABG pCO2 28 mmHg (35-45) L D 06/07/18 22:27 ABG pO2 64 mmHg (85-104) L 06/08/18 08:21 ABG HCO3 28 mEq/L (21-27) H 06/08/18 04:50 ABG Total CO2 28 mEq/L (20-26) H 06/08/18 08:21 ABG O2 Saturation 93 % (95-98) L 06/08/18 08:21 ABG Base Excess 4 mEq/L (-2 to 3) H 06/08/18 04:50 Potassium 3.0 mEq/L (3.5-5.1) L D 06/08/18 04:05 BUN 36 mg/dL (6-20) H 06/08/18 04:05 5.54 mg/dL (0.70-1.30) H 06/08/18 04:05 Est GFR ( Amer) 13 (> 60) L 06/08/18 04:05 Est GFR (Non-Af Amer) 11 (> 60) L 06/08/18 04:05 Glucose 229 mg/dL (70-105) H 06/07/18 16:10 308 (280-300) H 06/08/18 04:05 Lactic Acid 4.8 mmol/L (0.5-2.2) H* 06/07/18 19:51 Phosphorus 1.7 mg/dL (2.7-4.5) L 06/08/18 04:05 0.18 ng/mL (< 0.04) H* 06/07/18 21:07 B-Natriuretic Peptide 3722 pg/mL (Less than 100) H 06/07/18 16:17 - Microbiology Findings Microbiology Findings: Microbiology, Last 48 Hours 06/07/18 17:49 Blood Culture - Preliminary Peripheral Venipuncture Culture is incubating and being continuously monitored for growth. Final report to follow. 06/07/18 17:49 Blood Culture - Preliminary Peripheral Venipuncture Culture is incubating and being continuously monitored for growth. Final report to follow. - Clinical Findings Intake & Output: Intake & Output 06/07/18 06/08/18 06/08/18 23:59 07:59 15:59 Intake Total 0 / 0 1 / 1 Output Total 0 / 0 1000 / 1200 200 / 1200 Balance 0 / 0 -999 / -1199 -200 / -1199 Weight 77 kg Consult Discharge Plan - Plan Referrals: NONE,PCP [Primary Care Provider] - <Javier Trevino - Last Filed: 06/08/18 20:49> Date of Encounter: 06/08/18 All Systems: The remainder of the systems were reviewed and are negative Physical Examination Vital Signs: Vital Signs, Last 4 Hours Temp Pulse Resp BP Pulse Ox 06/08/18 10:01 15 108/67 99 06/08/18 08:00 92 F L 45 14 101/65 100 06/08/18 07:42 14 109/69 98 06/08/18 07:00 33 F L 42 14 105/66 98 Ventilator Settings Ventilator Settings: Ventilator Settings, Last 8 Hours Ventilator Tidal Volume 450 Setting Ventilator Tidal Volume 450 Setting Ventilator Tidal Volume 480 Setting Ventilator Tidal Volume 450 Setting Ventilator Tidal Volume 480 Setting Ventilator Tidal Volume 480 Setting Ventilator Tidal Volume 500 Setting Ventilator Tidal Volume 480 Setting Ventilator Tidal Volume 480 Setting Ventilator Respiratory Rate 12 Setting Ventilator Respiratory Rate 16 Setting Ventilator Respiratory Rate 14 Setting Ventilator Respiratory Rate 12 Setting Ventilator Respiratory Rate 14 Setting Ventilator Respiratory Rate 14 Setting Ventilator Respiratory Rate 18 Setting Ventilator Respiratory Rate 14 Setting Ventilator Respiratory Rate 14 Setting Actual Respiratory Rate 20 Actual Respiratory Rate 14 Actual Respiratory Rate 15 Actual Respiratory Rate 14 Actual Respiratory Rate 15 Positive End Expiratory 5 Pressure Positive End Expiratory 5 Pressure Positive End Expiratory 5 Pressure Positive End Expiratory 5 Pressure Positive End Expiratory 5 Pressure Positive End Expiratory 5 Pressure Positive End Expiratory 5 Pressure Positive End Expiratory 5 Pressure Positive End Expiratory 5 Pressure Peak Inspiratory Airway 31 Pressure Peak Inspiratory Airway 30 Pressure Peak Inspiratory Airway 32 Pressure Peak Inspiratory Airway 27 Pressure Peak Inspiratory Airway 29 Pressure Peak Inspiratory Airway 29 Pressure Results - Laboratory Findings CBC and BMP: 06/08/18 04:05 06/08/18 04:05 ABG ABG pH 7.45 pH Units (7.32-7.45) 06/08/18 08:21 ABG pCO2 39 mmHg (35-45) 06/08/18 08:21 ABG pO2 64 mmHg (85-104) L 06/08/18 08:21 ABG O2 Saturation 93 % (95-98) L 06/08/18 08:21 PT/INR, D-dimer PT 17.9 Seconds (9.4-12.1) H 06/08/18 04:05 Abnormal lab findings: Abnormal lab results WBC 3.8 K/mcL (4.3-11.1) L 06/08/18 04:05 RBC 2.86 M/mcL (4.19-5.50) L 06/08/18 04:05 Hgb 9.2 g/dL (12.9-16.9) L 06/08/18 04:05 Hct 28.1 % (37.5-50.1) L 06/08/18 04:05 MCV 109.4 fL (83.0-100.0) H 06/07/18 16:10 MCHC 29.1 g/dL (31.6-35.5) L 06/07/18 16:10 RDW 14.9 % (11.5-14.5) H 06/08/18 04:05 Plt Count 89 K/mcL (140-400) L 06/08/18 04:05 0.4 K/mcL (0.6-4.6) L 06/08/18 04:05 Decreased (Normal) L 06/08/18 04:05 PT 17.9 Seconds (9.4-12.1) H 06/08/18 04:05 APTT 43.6 Seconds (26.0-36.0) H 06/07/18 16:10 ABG pH 7.49 pH Units (7.32-7.45) H 06/08/18 04:50 ABG pCO2 28 mmHg (35-45) L D 06/07/18 22:27 ABG pO2 64 mmHg (85-104) L 06/08/18 08:21 ABG HCO3 28 mEq/L (21-27) H 06/08/18 04:50 ABG Total CO2 28 mEq/L (20-26) H 06/08/18 08:21 ABG O2 Saturation 93 % (95-98) L 06/08/18 08:21 ABG Base Excess 4 mEq/L (-2 to 3) H 06/08/18 04:50 Potassium 3.0 mEq/L (3.5-5.1) L D 06/08/18 04:05 BUN 36 mg/dL (6-20) H 06/08/18 04:05 5.54 mg/dL (0.70-1.30) H 06/08/18 04:05 Est GFR ( Amer) 13 (> 60) L 06/08/18 04:05 Est GFR (Non-Af Amer) 11 (> 60) L 06/08/18 04:05 Glucose 229 mg/dL (70-105) H 06/07/18 16:10 308 (280-300) H 06/08/18 04:05 Lactic Acid 4.8 mmol/L (0.5-2.2) H* 06/07/18 19:51 Phosphorus 1.7 mg/dL (2.7-4.5) L 06/08/18 04:05 0.18 ng/mL (< 0.04) H* 06/07/18 21:07 B-Natriuretic Peptide 3722 pg/mL (Less than 100) H 06/07/18 16:17 - Microbiology Findings Microbiology Findings: Microbiology, Last 48 Hours 06/07/18 17:49 Blood Culture - Preliminary Peripheral Venipuncture Culture is incubating and being continuously monitored for growth. Final report to follow. 06/07/18 17:49 Blood Culture - Preliminary Peripheral Venipuncture Culture is incubating and being continuously monitored for growth. Final report to follow. - Clinical Findings Intake & Output: Intake & Output 06/07/18 06/08/18 06/08/18 23:59 07:59 15:59 Intake Total 0 / 0 Output Total 0 / 0 1000 / 1800 800 / 1800 Balance 0 / 0 -999 / -1799 -800 / -1799 Weight 77 kg - Attending Attestation I examined this patient and my medical decision-making was reviewed with the Resident Physician. I agree with the documented findings, disposition and treatment plan as described except to the extent set forth below. Patient seen and examined. Labs, radiology, chart personally reviewed. Agree with resident's history and physical, assessment, plan with following comments: SOLE DYER: Patient does not follows commands, He doesn't have any reflexes, however he is hypothermic and need to improve his temperature and neurology consulted. EEG done and may need nuclear perfusion study if no improvement.I have had multiple discussion with family at the bedside and prognosis possibly is not good after he coded and concern about anoxic encephalopathy Pulmonary: Acceptable oxygenation and changed vent setting and patient has large sided pleural effusion that family is aware. Repeat ABG is reasonable and talked to the family regarding chest tube placement and they agreed and that was done. Will send fluid for analysis. Cardiovascular: Stable at this time and patient required vasopressor support for his shock which is vasodilatory in nature post code blue, however could have complications and dry cleaning supervisor has seen the patient. GI: Nutrition per dietary and GI prophylaxis per routine. Start trickle feed for now Heme: DVT prophylaxis per routine ID: Continue antibiotics and plan to de-escalation Renal; urine out put and renal function reviewed and nephrology follow up Endorcine: blood glucose is monitored Lines: all lines checked and no evidence of infections Skin: skin care to prevent pressure ulcers per nursing routine care. I spent 55 min of Critical Care time with this patient. It involved decision making of high complexity to assess, manipulate, and support vital organ system failure and/or to prevent further life threatening deterioration of the patient's condition. The time involved in the performance of separately reportable procedures was not counted toward critical care time.
--- NOTE | 2018-06-08 10:35 | Neurology - Consult Note ---
<Pravin Jennings - Last Filed: 06/08/18 10:28> Date of Encounter: 06/08/18 Time of Encounter: 10:28 Assessment and Plan (1) Cardiac arrest Current Visit: Yes Status: Acute Patient with an unresponsive state status post cardiac arrest. Neurology been consulted for neurological evaluation with concerns for possible brain . Patient S/P cardiac arrest with a total downtime a 50-60 minutes and concerns for anoxia. CT imaging also showing concerns for anoxia. No brainstem reflexes found today on examination. We will order an EEG for further evaluation-this is pending Recommend repeat CT imaging After EEG has been completed we recommend CSF with flow study Otherwise continue medical and supportive care (2) Unresponsive state Current Visit: Yes Status: Acute History of Present Illness Chief complaint: cardiac arrest, unresponsive HPI: Mr. Weaver is a 58 year old male with a PMH of chronic respiratory failure, DM, ESRD on hemodialysis. He presented S/P cardiac arrest and was found unresponsiv e approximately 3:30 PM with asystole upon arrival via EMS. Total down time approximately 1 hour requiring one shock and 1 cycle resuscitation with epinephrine before ROSC. Since admission the patient has been a nonresponsive without sedation and is requiring ventilatory support as he is unable to breathe without assistance. He has been hypothermic since arrival and the hypothermia is not approving with a warming device. Neurology has been consulted to assess neurological status and for consideration of brain . Past Med Surg Social Fam HX - Past Medical History Medical history: other Additional medical history: heart cath 2018 Psychiatric history: no psych history - Past Surgical History Surgical History: appendectomy, other Additional surgical history: R FOOT SURGERY. toe amputation 11/04/2017 - Social History Smoking Status: Current every day smoker Smokeless Tobacco Status: No Alcohol use: unknown Drug use: unknown - Additional Family History Additional family history: No family present. Unable to obtain due to patients current state Medications and Allergies Calcium Acetate [Phos-LO] 2,001 mg PO TIDWM 02/09/15 [History] Atorvastatin [Lipitor] 40 mg PO DAILY 10/03/17 [History] Bumetanide [Bumex] 1 mg PO DAILY 10/03/17 [History] Docusate Sodium [Dok] 100 mg PO BID 10/03/17 [History] Isosorbide DInitrate [Isosorbide Dinitrate] 50 mg PO TID 10/03/17 [History] Losartan Potassium [Cozaar] 100 mg PO DAILY 10/03/17 [History] NIFEdipine [Nifedipine ER] 60 mg PO DAILY 10/03/17 [History] OxyCODONE Immed Rel [Roxicodone 15 MG] 7.5 mg PO QID PRN 10/03/17 [History] Renal Vitamin [Renal Caps Softgel] 1 cap PO DAILY 10/03/17 [History] Aspirin [Adult Aspirin Regimen] 81 mg PO DAILY 06/08/18 [History] Lidocaine/Prilocaine [Emla] 1 appl TP AD 06/08/18 [History] Allergy/AdvReac Type Severity Reaction Status Date / Time No Known Allergies Allergy Verified 06/08/18 09:21 ROS unobtainable: due to mental status All Systems: The remainder of the systems were reviewed and are negative Physical Examination - Vital Signs Vital Signs: Initial Vital Signs Resp Pulse Ox 18 100 06/07/18 16:00 06/07/18 16:00 - Exam Exam: Examination: Is severely limited due to unresponsiveness S/P cardiac arrest with concern for possible brain General Examination: *CONSTITUTIONAL: Not alert, does not respond to noxious stimulus *GENERAL APPEARANCE OF PATIENT overall ill appearing *EYES: pupils equal, and round but does not react to light *CARDIOVASCULAR RRR, S1, S2, no mumurs, rubs, or gallops, no peripheral edema Musculoskeletal: *GAIT AND STATION unable to assess *ASSESSMENT OF MUSCLE STRENGTH IN THE UPPER AND LOWER EXTREMITIES flaccid *MUSCLE TONE IN THE UPPER AND LOWER EXTREMITIES normal. flaccid *SENSORY EXAMINATION does not respond to any stimuli *REFLEXES: deep tendon reflexes were absent symmetrically Results - Laboratory Findings CBC and BMP: 06/08/18 04:05 06/08/18 04:05 Abnormal lab findings: Abnormal lab results WBC 3.8 K/mcL (4.3-11.1) L 06/08/18 04:05 RBC 2.86 M/mcL (4.19-5.50) L 06/08/18 04:05 Hgb 9.2 g/dL (12.9-16.9) L 06/08/18 04:05 Hct 28.1 % (37.5-50.1) L 06/08/18 04:05 MCV 109.4 fL (83.0-100.0) H 06/07/18 16:10 MCHC 29.1 g/dL (31.6-35.5) L 06/07/18 16:10 RDW 14.9 % (11.5-14.5) H 06/08/18 04:05 Plt Count 89 K/mcL (140-400) L 06/08/18 04:05 0.4 K/mcL (0.6-4.6) L 06/08/18 04:05 Decreased (Normal) L 06/08/18 04:05 PT 17.9 Seconds (9.4-12.1) H 06/08/18 04:05 APTT 43.6 Seconds (26.0-36.0) H 06/07/18 16:10 ABG pH 7.49 pH Units (7.32-7.45) H 06/08/18 04:50 ABG pCO2 28 mmHg (35-45) L D 06/07/18 22:27 ABG pO2 64 mmHg (85-104) L 06/08/18 08:21 ABG HCO3 28 mEq/L (21-27) H 06/08/18 04:50 ABG Total CO2 28 mEq/L (20-26) H 06/08/18 08:21 ABG O2 Saturation 93 % (95-98) L 06/08/18 08:21 ABG Base Excess 4 mEq/L (-2 to 3) H 06/08/18 04:50 Potassium 3.0 mEq/L (3.5-5.1) L D 06/08/18 04:05 BUN 36 mg/dL (6-20) H 06/08/18 04:05 5.54 mg/dL (0.70-1.30) H 06/08/18 04:05 Est GFR ( Amer) 13 (> 60) L 06/08/18 04:05 Est GFR (Non-Af Amer) 11 (> 60) L 06/08/18 04:05 Glucose 229 mg/dL (70-105) H 06/07/18 16:10 308 (280-300) H 06/08/18 04:05 Lactic Acid 4.8 mmol/L (0.5-2.2) H* 06/07/18 19:51 Phosphorus 1.7 mg/dL (2.7-4.5) L 06/08/18 04:05 0.18 ng/mL (< 0.04) H* 06/07/18 21:07 B-Natriuretic Peptide 3722 pg/mL (Less than 100) H 06/07/18 16:17 - Diagnostic Findings Additional findings: CT/CT head/brain wo con IMPRESSION: Basal ganglia structures echols-white differentiation less conspicuous than what is normal expected. This could be sequelae of CT technique. If there is concern for hypoxic injury, repeat head CT in several hours or MRI brain may also be considered. Consult Discharge Plan - Plan Referrals: NONE,PCP [Primary Care Provider] - <Ramón Gray I - Last Filed: 06/08/18 15:22> Date of Encounter: 06/08/18 Assessment and Plan (1) Cardiac arrest Current Visit: Yes Status: Acute I have personally performed a face to face diagnostic evaluation, including HPI, EXAM, which is included in the Assesment and plan, which was discussed with Pravin Jennings CNP, I agree with the above outlined documentation. On neurological evaluation patient did not have any brainstem functions and particularly no corneal response, no pupillary reflexes, no withdrawal to the deep pain, and no gag reflex. This pattern seems to be consistent with diffuse anoxic brain injury Recommend CT scan of the head to make sure no underlying bleed or any other significant edema at the same time EEG to look for any interictal abnormalities and to make sure patient is not in non-convulsive status. We will reevaluate the patient in next 24 hours to see if there is any change in his overall neurological status Ramón Gray MD. Neurology (2) Unresponsive state Current Visit: Yes Status: Acute History of Present Illness HPI: Mr. Weaver is a 58 year old male All Systems: The remainder of the systems were reviewed and are negative Physical Examination - Vital Signs Vital Signs: Initial Vital Signs Resp Pulse Ox 18 100 06/07/18 16:00 06/07/18 16:00 Results - Laboratory Findings CBC and BMP: 06/08/18 04:05 06/08/18 04:05 Abnormal lab findings: Abnormal lab results WBC 3.8 K/mcL (4.3-11.1) L 06/08/18 04:05 RBC 2.86 M/mcL (4.19-5.50) L 06/08/18 04:05 Hgb 9.2 g/dL (12.9-16.9) L 06/08/18 04:05 Hct 28.1 % (37.5-50.1) L 06/08/18 04:05 MCV 109.4 fL (83.0-100.0) H 06/07/18 16:10 MCHC 29.1 g/dL (31.6-35.5) L 06/07/18 16:10 RDW 14.9 % (11.5-14.5) H 06/08/18 04:05 Plt Count 89 K/mcL (140-400) L 06/08/18 04:05 0.4 K/mcL (0.6-4.6) L 06/08/18 04:05 Decreased (Normal) L 06/08/18 04:05 PT 17.9 Seconds (9.4-12.1) H 06/08/18 04:05 APTT 43.6 Seconds (26.0-36.0) H 06/07/18 16:10 ABG pH 7.49 pH Units (7.32-7.45) H 06/08/18 04:50 ABG pCO2 28 mmHg (35-45) L D 06/07/18 22:27 ABG pO2 64 mmHg (85-104) L 06/08/18 08:21 ABG HCO3 28 mEq/L (21-27) H 06/08/18 04:50 ABG Total CO2 28 mEq/L (20-26) H 06/08/18 08:21 ABG O2 Saturation 93 % (95-98) L 06/08/18 08:21 ABG Base Excess 4 mEq/L (-2 to 3) H 06/08/18 04:50 Potassium 3.0 mEq/L (3.5-5.1) L D 06/08/18 04:05 BUN 36 mg/dL (6-20) H 06/08/18 04:05 5.54 mg/dL (0.70-1.30) H 06/08/18 04:05 Est GFR ( Amer) 13 (> 60) L 06/08/18 04:05 Est GFR (Non-Af Amer) 11 (> 60) L 06/08/18 04:05 Glucose 229 mg/dL (70-105) H 06/07/18 16:10 POC Glucose 100 mg/dL (70-99) H 06/08/18 00:01 308 (280-300) H 06/08/18 04:05 Lactic Acid 4.8 mmol/L (0.5-2.2) H* 06/07/18 19:51 Phosphorus 1.7 mg/dL (2.7-4.5) L 06/08/18 04:05 1.1 mg/dL (0.3-1.0) H 06/08/18 04:05 0.4 mg/dL (0.0-0.2) H 06/08/18 04:05 AST 51 Units/L (13-39) H 06/08/18 04:05 120 Units/L (34-104) H 06/08/18 04:05 0.18 ng/mL (< 0.04) H* 06/07/18 21:07 B-Natriuretic Peptide 3722 pg/mL (Less than 100) H 06/07/18 16:17 5.7 g/dL (6.4-8.9) L 06/08/18 04:05 3.2 g/dL (3.5-5.7) L 06/08/18 04:05 Hep Bs Antibody < 3.10 mIU/mL (10.00-) L 06/08/18 12:10
--- NOTE | 2018-06-08 10:59 | Cardiology Consult Note ---
Date of Encounter: 06/08/18 Time of Encounter: 10:30 Assessment and Plan (1) Cardiac arrest Current Visit: Yes Status: Acute Likely secondary to respiratory arrest from hypoxia. Continue post-ROSC protocol. Recommend management of large right pleural effusion, once patient is stable enough to undergo thoracocentesis. EKG shows minimal ST depression in the inferior and anterolateral leads. Peak troponin is 0.18. Echocardiogram pending. We will defer ischemic workup until respiratory status is stabilized. 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 Dialysis once hemodynamically stable (4) Hypokalemia Current Visit: Yes Status: Acute Monitor electrolytes closely and replace in consultation with windows support engineer, since patient is on dialysis Discussion w patient/family: The assessment and plan as outlined above was discussed with the patient and/or family members who expressed understanding and agreement. All questions were answered. Thank you for involving us in the care of your patient. Please call with any questions. History of Present Illness Consult date: 06/08/18 Requesting physician: Hunter Polanco History of present illness: Mr. Weaver is a 58 year old male 58-year-old gentleman with history of hypertension, diabetes, ESRD on dialysis, admitted status post cardiac arrest. He had complained of shortness of breath days prior to presentation. Initial rhythm was reported as asystole however patient was said to have developed V. fib en route to the ER for which he was defibrillated. On admission found to have large right pleural effusion. Intubated. History obtained from charts. Past Med Surg Social Fam HX - Past Medical History Medical history: other Additional medical history: heart cath 2018 Psychiatric history: no psych history - Past Surgical History Surgical History: appendectomy, other Additional surgical history: R FOOT SURGERY. toe amputation 11/04/2017 - Social History Smoking Status: Current every day smoker Smokeless Tobacco Status: No Alcohol use: unknown Drug use: unknown Medications and Allergies Calcium Acetate [Phos-LO] 2,001 mg PO TIDWM 02/09/15 [History] Atorvastatin [Lipitor] 40 mg PO DAILY 10/03/17 [History] Bumetanide [Bumex] 1 mg PO DAILY 10/03/17 [History] Docusate Sodium [Dok] 100 mg PO BID 10/03/17 [History] Isosorbide DInitrate [Isosorbide Dinitrate] 50 mg PO TID 10/03/17 [History] Losartan Potassium [Cozaar] 100 mg PO DAILY 10/03/17 [History] NIFEdipine [Nifedipine ER] 60 mg PO DAILY 10/03/17 [History] OxyCODONE Immed Rel [Roxicodone 15 MG] 7.5 mg PO QID PRN 10/03/17 [History] Renal Vitamin [Renal Caps Softgel] 1 cap PO DAILY 10/03/17 [History] Aspirin [Adult Aspirin Regimen] 81 mg PO DAILY 06/08/18 [History] Lidocaine/Prilocaine [Emla] 1 appl TP AD 06/08/18 [History] Allergy/AdvReac Type Severity Reaction Status Date / Time No Known Allergies Allergy Verified 06/08/18 09:21 ROS unobtainable: due to endotracheal tube All Systems Review: The remainder of the systems were reviewed and are negative Physical Examination Vital Signs, Last 4 Hours Temp Pulse Resp BP Pulse Ox 06/08/18 10:01 15 108/67 99 06/08/18 08:00 92 F L 45 14 101/65 100 06/08/18 07:42 14 109/69 98 06/08/18 07:00 33 F L 42 14 105/66 98 General: Other (Intubated, unresponsive) HEENT: Atraumatic Neck: No JVD Lungs: Other (Markedly reduced breath sound on the right hemithorax) Neuro: Other (Unresponsive) Abdomen: Other (Rectal tube draining liquidy effluent) Extremities: No Edema Results 06/08/18 04:05 06/08/18 04:05 Lab Results 06/07/18 06/07/18 06/07/18 16:10 16:10 16:10 WBC 3.8 L Hgb 8.8 L Hct 30.2 L Plt Count 68 L INR 1.4 APTT 43.6 H Sodium 142 Potassium 4.7 Chloride 103 Carbon Dioxide 26 BUN 32 H Creatinine 5.21 H Glucose 229 H Calcium 9.6 Troponin I 0.03 B-Natriuretic Peptide 06/07/18 06/07/1806/08/19 16:17 21:07 04:05 WBC 3.8 L Hgb 9.2 L Hct 28.1 L Plt Count 89 L INR APTT Sodium Potassium Chloride Carbon Dioxide BUN Creatinine Glucose Calcium Troponin I 0.18 H* B-Natriuretic Peptide 3722 H 06/08/18 06/08/18 04:05 04:05 WBC Hgb Hct Plt Count INR 1.6 APTT Sodium 145 Potassium 3.0 L D Chloride 106 Carbon Dioxide 27 BUN 36 H Creatinine 5.54 H Glucose 99 Calcium 8.8 Troponin I B-Natriuretic Peptide Consult Discharge Plan - Plan Referrals: NONE,PCP [Primary Care Provider] -
[2018-06-08] MEDS ORDERED: Artificial Tears SOLN 15 ML BOTTLE BOTH EYES PRN (11:29)
[2018-06-08 11:44] LABS: Albumin 3.2 g/dL (3.5-5.7); Albumin/Globulin Ratio 1.3 (1.1-2.2); Bilirubin,Direct 0.4 mg/dL (0.0-0.2); Bilirubin,Indirect 0.7 mg/dL (0.0-1.2); Bilirubin,Total 1.1 mg/dL (0.3-1.0); Globulin 2.5 g/dL (2.4-3.5); Total Protein 5.7 g/dL (6.4-8.9)
--- NOTE | 2018-06-08 12:20 | Nephrology Consult Note ---
Date of Encounter: 06/08/18 Time of Encounter: 07:55 Assessment and Plan (1) ESRD (end stage renal disease) on dialysis Current Visit: Yes Status: Chronic Mildly hypotensive. Rec HD today on Friday and UF tomorrow on Friday and then back to HD on Friday to assist with clearance and volume mgt. Updated the family of which many were present this AM. Neurological function as per primary. I reviewed the pt's vital sign and lab trends, meds, I/Os and progress notes, which I used to evaluate and then compose HD orders. Thank you. (2) Hypokalemia Current Visit: Yes Status: Acute HD today and monitor. Dialysis should help (3) Respiratory failure Current Visit: Yes Status: Acute Acute on chronic. Hx of pulm edema/pleural effusions and if I recall correctly he has had Pulm HTN diagnosed in the past. Appreciate Pulmonology. Qualifiers: Chronicity: unspecified Respiratory failure complication: hypoxia Qualified Code(s): J96.91 - Respiratory failure, unspecified with hypoxia (4) Anemia of chronic disease Current Visit: No Status: Acute Goal Hgb is 10-11. Will monitor. History of Present Illness - Reason for Consult Consult date: 06/08/18 end stage renal disease Requesting physician: Adrián Mittal - Chief Complaint ESRD, s/p Arrest - History of Present Illness The patient is a 58-year-old male with a past medical history of type 2 diabetes, hypertension, recurrent pulmonary edema/pulmonary hypertension as well as ESRD on thrice weekly hemodialysis who presented after [id number] arrest. Nephrology was consulted because he is ESRD. I know this patient well for many years when he was seen by the [facility] group for chronic dialysis and even before when he had advanced CKD. Of noted, several months ago he moved to the [facility] and changed nephrology groups. His more recent dialysis history is not immediately available to me. During my interview/exam, he had many family members in the room including his mother, sister, brother, nieces and nephews. His brother reported that he was recently hospitalized at [facility] with further pulmonary issues requiring fluid removal; and this per family has been a recurrent issues. They were unsure if he has attended all of his dialysis treatments, or how long his dialysis treatments have been. His mother reported that his left AV fistula has not been working well recently, however, but she did not remember when he last had a fistulogram. He was intubated and unresponsive, so further HPI is unavailable. Family History: his mother has mild CKD but no relatives mentioned having CKD/ESRD. Past Med Surg Social Fam HX - Past Medical History Medical history: other Additional medical history: heart cath 2017 Psychiatric history: no psych history - Past Surgical History Surgical History: appendectomy, other Additional surgical history: R FOOT SURGERY. toe amputation 11/04/2017 - Social History Smoking Status: Current every day smoker Smokeless Tobacco Status: No Alcohol use: unknown Drug use: unknown Medications and Allergies Calcium Acetate [Phos-LO] 2,001 mg PO TIDWM 02/09/15 [History] Atorvastatin [Lipitor] 40 mg PO DAILY 10/03/17 [History] Bumetanide [Bumex] 1 mg PO DAILY 10/03/17 [History] Docusate Sodium [Dok] 100 mg PO BID 10/03/17 [History] Isosorbide DInitrate [Isosorbide Dinitrate] 50 mg PO TID 10/03/17 [History] Losartan Potassium [Cozaar] 100 mg PO DAILY 10/03/17 [History] NIFEdipine [Nifedipine ER] 60 mg PO DAILY 10/03/17 [History] OxyCODONE Immed Rel [Roxicodone 15 MG] 7.5 mg PO QID PRN 10/03/17 [History] Renal Vitamin [Renal Caps Softgel] 1 cap PO DAILY 10/03/17 [History] Aspirin [Adult Aspirin Regimen] 81 mg PO DAILY 06/08/18 [History] Lidocaine/Prilocaine [Emla] 1 appl TP AD 06/08/18 [History] Allergy/AdvReac Type Severity Reaction Status Date / Time No Known Allergies Allergy Verified 06/08/18 09:21 Review of Systems ROS unobtainable: due to endotracheal tube, due to mental status Exam - Vital Signs Vital signs: Initial Vital Signs Resp Pulse Ox 18 100 06/07/18 16:00 06/07/18 16:00 Vital Signs - Last 8 Hours Temp Pulse Resp BP Pulse Ox 06/08/18 11:10 20 108/67 99 06/08/18 11:00 94.4 F L 51 18 106/66 100 06/08/18 10:01 15 108/67 99 06/08/18 10:00 48 14 108/67 100 06/08/18 09:00 50 12 109/67 100 06/08/18 08:00 92 F L 45 14 101/65 100 06/08/18 07:42 14 109/69 98 06/08/18 07:00 33 F L 42 14 105/66 98 06/08/18 06:00 32.8 F L 44 15 121/62 99 06/08/18 05:03 14 116/65 96 06/08/18 05:00 33 F L 44 14 116/65 97 Intake and Output 06/07/18 06/08/18 06/08/18 23:59 07:59 15:59 Intake Total 0 / 0 / 1 Output Total 0 / 0 1000 / 1800 800 / 1800 Balance 0 / 0 -999 / -1799 -800 / -1799 Intake: IV Fluids / EPINEPHrine 1 MG In Dextrose 5% 250 ML @ 5 MCG/MIN 75.3 mls/hr IVC CONT ALEX Rx#:[id number] Free Water 0 / 0 Output: Rectal Tube 600 / 800 200 / 800 Catheter 0 / 0 Gastric Drainage 400 / 1000 600 / 1000 Other: Stool Size Large Stool Consistency loose liquid formed Stool Color Brown # Bowel Movements 3 Weight 77 kg Blood Glucose* 154 100 - General Appearance General appearance: well-developed, well-nourished, appears started age, sedated on ventilator, intubated EENT: ATNC, mucous membranes moist Neck: supple Respiratory: course breath sounds (and diminished in the bases bilaterally) Cardiology: edema (approx 1+ pretibial pitting edema bilaterally), regular rate, regular rhythm, normal S1, normal S2 - Dialysis Access Dialysis Vascular Access: Arteriovenous Fistula (left forearm AVF) thrill: Yes bruit: Yes Gastrointestinal: normoactive bowel sounds, no guarding Integumentary: cool/clammy Neurologic: obtunded Additional Comments: no obvious response to verbal or tactile stimuli Musculoskeletal: no cyanosis Additional Comments: Psych: unable to assess d/t AMS/intubation Results - Lab Results 06/08/18 04:05 06/08/18 04:05 Most recent lab results 06/08/18 06/08/18 06/08/18 04:05 04:50 08:21 ABG pH 7.49 H 7.45 ABG pCO2 37 39 ABG pO2 68 L 64 L ABG HCO3 28 H 27 ABG O2 Saturation 95 93 L Calcium 8.8 Phosphorus 1.7 L Consult Discharge Plan - Plan Referrals: NONE,PCP [Primary Care Provider] -
[2018-06-08] MEDS: *HR* Dextrose 50 % in Water (Syg) 50 ML SYRINGE IVP PRN ×3 (12:31→23:46)
[2018-06-08] MEDS: Artificial Tears SOLN 15 ML BOTTLE BOTH EYES SCH ×3 (13:06→22:27)
[2018-06-08] MEDS: Pantoprazole 40 MG VIAL IVP SCH (13:06)
[2018-06-08 13:35] LABS: Hepatitis B Surface Antibody < 3.10 mIU/mL
[2018-06-08 13:46] LABS: Hepatitis B Surface Antigen Nonreactive (Nonreactive)
[2018-06-08] MEDS: D5% in 0.45% NACL 1,000 ML IVC SCH (14:42)
--- NOTE | 2018-06-08 15:20 | EEG/EMG/Oth Biometrics Report ---
EEG Procedure Report EEG Procedure: Routine EEG Procedure Note: Routine 21-channel digital EEG was obtained to rule out any seizure activity or focal abnormalities on patient who is intubated.. FINDINGS: Background rhythm during awake stage shows poorly organized, low voltage in the anterior and posterior regions, with low amp delta activity about 1-3 secs this low voltage (< 10 V) with minimal reactivity continued through out the whole study with some increase in activity at the end of records, clinical Interpretation: Abnormal EEG.this pattern of electrographic activity is normally seen in the patient with diffuse brain injury; most commonly this is anoxic, but at the same time similar pattern could be pharmacologically induced. No evidence of any seizure activity were noted Clinical correlation with repeat studies suggested if clinically warranted .
--- NOTE | 2018-06-08 15:50 | Procedure Note ---
<Adrián Mittal - Last Filed: 06/08/18 19:48> Date of procedure: 06/08/18 Pre-op diagnosis: Pleural effusion Post-op diagnosis: same Procedure: Procedure was described to family including risks consisting of bleeding, infection, pneumothorax, . Necessity of procedure was described consisting of removing pleural fluid in order to improve respiratory function. Consent was given and documented. Timeout was performed confirming correct patient and procedure. Ultrasound was used to assess fluid present in right thoracic cavity. Procedure site and lateral fifth intercostal space was prepped and draped in usual sterile fashion. Introducer needle was advanced under negative pressure until serosanguineous fluid was returned, needle was secured in place and syringe was removed, guidewire was inserted and advanced without resistance. Introducer needle was removed and dilatation was sequentially performed after a small evgeny in the skin was made. A 12-Albanian chest tube catheter was advanced and secured with suture, the chest tube was connected to a water seal device placement in the floor on the right side of the bed. The device was connected to suction and pleural fluid was immediately returned. Stat chest x-ray was ordered demonstrating chest tube in place in the pleural cavity without presence of pneumothorax. Anesthesia: none Surgeon: Adrián Mittal Was there an histology assistant present: Yes Director Of Human Resources: Javier Trevino Estimated blood loss (cc): 2 Specimen: none Pathology: none sent Condition: critical Disposition: ICU <Javier Trevino - Last Filed: 06/08/18 20:32> Procedure: I examined this patient and my medical decision-making was reviewed with the Resident Physician. I agree with the documented findings, disposition and treatment plan as described except to the extent set forth below. I have personally supervised Dr. Mittal placing chest tube in the right with no immediate complications.
[2018-06-08] MEDS: Chlorhexidine Rinse 15 ML MOUTHWASH MM SCH (22:27)
[2018-06-09] MEDS: Artificial Tears SOLN 15 ML BOTTLE BOTH EYES SCH ×3 (01:01→08:12)
[2018-06-09] MEDS: Insulin LISPRO 300 UNITS/3 ML VIAL SQ SCH ×3 (01:01→11:33)
[2018-06-09 04:03] LABS: Basophils % 0.4 %; Eosinophils # 0.2 K/mcL (0.0-0.6); Eosinophils % 3.3 %; Hematocrit 35.6 % (37.5-50.1); Hemoglobin 11.6 g/dL (12.9-16.9); Immature Granulocytes % 0.3 % (0-4); Lymphocytes # 0.8 K/mcL (0.6-4.6); Mean Corpuscular HGB Conc 32.6 g/dL (31.6-35.5); Mean Corpuscular Hemoglobin 32.2 pg (28.0-33.3); Mean Corpuscular Volume 98.9 fL (83.0-100.0); Mean Platelet Volume 11.3 fL (9.4-12.4); Monocytes # 0.4 K/mcL (0.0-1.3); Monocytes % 5.4 %; Neutrophils # 5.8 K/mcL (1.6-8.9); Platelet Count 106 K/mcL (140-400); Red Cell Distribution Width 15.9 % (11.5-14.5); Segmented Neutrophils % 79.6 %
[2018-06-09] MEDS ORDERED: D10% in Water 500 ML IVC SCH (04:15)
[2018-06-09 04:21] LABS: ABG Base Excess 6 mEq/L (-2 to 3); ABG HCO3 30 mEq/L (21-27); ABG Oxygen Saturation 98 % (95-98); ABG PCO2 39 mmHg (35-45); ABG PO2 95 mmHg (85-104); ABG TCO2 31 mEq/L (20-26); Blood Gas Modality VC; Blood Gas PEEP 5 cm H2O; Blood Gas Respiration Rate 12; Blood Gas VT 400 cc
[2018-06-09] MEDS: Piperacillin/Tazobactam 3.375 GM in 0.9 % Sodium Chloride Mini Bag 100 ML IVPB SCH (06:06)
--- NOTE | 2018-06-09 07:02 | Pulmonology Progress Note ---
<Adrián Mittal - Last Filed: 06/09/18 07:01> Date of Encounter: 06/09/18 Time of Encounter: 07:01 Assessment and Plan (1) Unresponsive state Current Visit: Yes Status: Acute (2) Acute on chronic respiratory failure with hypercapnia Current Visit: Yes Status: Acute (3) End-stage renal disease on hemodialysis Current Visit: Yes Status: Acute (4) Cardiac arrest Current Visit: Yes Status: Acute (5) Pleural effusion Current Visit: Yes Status: Acute Objective PUL Vital signs: Last Vital Signs Temp 99.5 F 06/09/18 04:00 Pulse 75 06/09/18 06:00 Resp 23 06/09/18 06:00 BP 135/77 06/09/18 06:00 Pulse Ox 100 06/09/18 06:00 Ventilator Settings Ventilator Settings: Ventilator Settings, Last 8 Hours Ventilator Tidal Volume 400 Setting Ventilator Tidal Volume 400 Setting Ventilator Tidal Volume 400 Setting Ventilator Tidal Volume 400 Setting Ventilator Tidal Volume 400 Setting Ventilator Tidal Volume 400 Setting Ventilator Tidal Volume 400 Setting Ventilator Tidal Volume 400 Setting Ventilator Tidal Volume 400 Setting Ventilator Respiratory Rate 12 Setting Ventilator Respiratory Rate 12 Setting Ventilator Respiratory Rate 12 Setting Ventilator Respiratory Rate 12 Setting Ventilator Respiratory Rate 12 Setting Ventilator Respiratory Rate 12 Setting Ventilator Respiratory Rate 12 Setting Ventilator Respiratory Rate 12 Setting Ventilator Respiratory Rate 12 Setting Actual Respiratory Rate 24 Actual Respiratory Rate 23 Actual Respiratory Rate 21 Actual Respiratory Rate 22 Positive End Expiratory 5 Pressure Positive End Expiratory 5 Pressure Positive End Expiratory 5 Pressure Positive End Expiratory 5 Pressure Positive End Expiratory 5 Pressure Positive End Expiratory 5 Pressure Positive End Expiratory 5 Pressure Positive End Expiratory 5 Pressure Positive End Expiratory 5 Pressure Peak Inspiratory Airway 26 Pressure Peak Inspiratory Airway 29 Pressure Peak Inspiratory Airway 26 Pressure Peak Inspiratory Airway 27 Pressure Peak Inspiratory Airway 26 Pressure Peak Inspiratory Airway 27 Pressure Peak Inspiratory Airway 26 Pressure Peak Inspiratory Airway 27 Pressure Results - Laboratory Findings CBC and BMP: 06/09/18 03:50 06/09/18 03:50 ABG ABG pH 7.50 pH Units (7.32-7.45) H 06/09/18 04:18 ABG pCO2 39 mmHg (35-45) 06/09/18 04:18 ABG pO2 95 mmHg (85-104) 06/09/18 04:18 ABG O2 Saturation 98 % (95-98) 06/09/18 04:18 PT/INR, D-dimer PT 17.9 Seconds (9.4-12.1) H 06/08/18 04:05 Abnormal lab findings: Abnormal lab results WBC 3.8 K/mcL (4.3-11.1) L 06/08/18 04:05 RBC 3.60 M/mcL (4.19-5.50) L 06/09/18 03:50 Hgb 11.6 g/dL (12.9-16.9) L D 06/09/18 03:50 Hct 35.6 % (37.5-50.1) L 06/09/18 03:50 MCV 109.4 fL (83.0-100.0) H 06/07/18 16:10 MCHC 29.1 g/dL (31.6-35.5) L 06/07/18 16:10 RDW 15.9 % (11.5-14.5) H 06/09/18 03:50 Plt Count 106 K/mcL (140-400) L 06/09/18 03:50 0.4 K/mcL (0.6-4.6) L 06/08/18 04:05 Decreased (Normal) L 06/08/18 04:05 PT 17.9 Seconds (9.4-12.1) H 06/08/18 04:05 APTT 43.6 Seconds (26.0-36.0) H 06/07/18 16:10 ABG pH 7.50 pH Units (7.32-7.45) H 06/09/18 04:18 ABG pCO2 28 mmHg (35-45) L D 06/07/18 22:27 ABG pO2 64 mmHg (85-104) L 06/08/18 08:21 ABG HCO3 30 mEq/L (21-27) H 06/09/18 04:18 ABG Total CO2 31 mEq/L (20-26) H 06/09/18 04:18 ABG O2 Saturation 93 % (95-98) L 06/08/18 08:21 ABG Base Excess 6 mEq/L (-2 to 3) H 06/09/18 04:18 Potassium 3.0 mEq/L (3.5-5.1) L D 06/08/18 04:05 Carbon Dioxide 31 mEq/L (23-29) H 06/09/18 03:50 BUN 36 mg/dL (6-20) H 06/08/18 04:05 3.67 mg/dL (0.70-1.30) H 06/09/18 03:50 Est GFR ( Amer) 21 (> 60) L 06/09/18 03:50 Est GFR (Non-Af Amer) 17 (> 60) L 06/09/18 03:50 5 (6-26) L 06/09/18 03:50 Glucose 68 mg/dL (70-105) L 06/09/18 03:50 POC Glucose 64 mg/dL (70-99) L 06/09/18 06:03 308 (280-300) H 06/08/18 04:05 Lactic Acid 4.8 mmol/L (0.5-2.2) H* 06/07/18 19:51 Phosphorus 1.7 mg/dL (2.7-4.5) L 06/08/18 04:05 1.1 mg/dL (0.3-1.0) H 06/08/18 04:05 0.4 mg/dL (0.0-0.2) H 06/08/18 04:05 AST 51 Units/L (13-39) H 06/08/18 04:05 120 Units/L (34-104) H 06/08/18 04:05 0.18 ng/mL (< 0.04) H* 06/07/18 21:07 B-Natriuretic Peptide 3722 pg/mL (Less than 100) H 06/07/18 16:17 5.7 g/dL (6.4-8.9) L 06/08/18 04:05 3.2 g/dL (3.5-5.7) L 06/08/18 04:05 Hep Bs Antibody < 3.10 mIU/mL (10.00-) L 06/08/18 12:10 - Microbiology Findings Microbiology Findings: Microbiology, Last 48 Hours 06/07/18 17:49 Blood Culture - Preliminary Peripheral Venipuncture Culture is incubating and being continuously monit ored for growth. Final report to follow. 06/07/18 17:49 Blood Culture - Preliminary Peripheral Venipuncture Culture is incubating and being continuously monitored for growth. Final report to follow. - Clinical Findings Intake & Output: Intake & Output 06/08/18 06/08/18 06/09/18 15:59 23:59 07:59 Intake Total 1100 / 2051 950 / 2051 692 / 692 Output Total 925 / 7455 5530 / 7455 110 / 110 Balance 175 / -5404 -4580 / -5404 582 / 582 Weight 74.4 kg Consult Discharge Plan - Plan Referrals: NONE,PCP [Primary Care Provider] - <Javier Trevino M - Last Filed: 06/09/18 15:55> Date of Encounter: 06/09/18 Objective PUL Vital signs: Last Vital Signs Temp 99.2 F 06/09/18 11:00 Pulse 67 06/09/18 12:00 Resp 16 06/09/18 12:00 BP 95/61 06/09/18 12:00 Pulse Ox 99 06/09/18 12:20 Ventilator Settings Ventilator Settings: Ventilator Settings, Last 8 Hours Ventilator Tidal Volume 400 Setting Ventilator Tidal Volume 400 Setting Ventilator Tidal Volume 400 Setting Ventilator Tidal Volume 400 Setting Ventilator Tidal Volume 400 Setting Ventilator Tidal Volume 400 Setting Ventilator Respiratory Rate 12 Setting Ventilator Respiratory Rate 12 Setting Ventilator Respiratory Rate 12 Setting Ventilator Respiratory Rate 12 Setting Ventilator Respiratory Rate 12 Setting Ventilator Respiratory Rate 12 Setting Actual Respiratory Rate 16 Actual Respiratory Rate 16 Actual Respiratory Rate 18 Actual Respiratory Rate 18 Actual Respiratory Rate 21 Actual Respiratory Rate 18 Positive End Expiratory 5 Pressure Positive End Expiratory 5 Pressure Positive End Expiratory 5 Pressure Positive End Expiratory 5 Pressure Positive End Expiratory 5 Pressure Positive End Expiratory 5 Pressure Peak Inspiratory Airway 25 Pressure Peak Inspiratory Airway 25 Pressure Peak Inspiratory Airway 24 Pressure Results - Laboratory Findings CBC and BMP: 06/09/18 03:50 06/09/18 03:50 ABG ABG pH 7.50 pH Units (7.32-7.45) H 06/09/18 04:18 ABG pCO2 39 mmHg (35-45) 06/09/18 04:18 ABG pO2 95 mmHg (85-104) 06/09/18 04:18 ABG O2 Saturation 98 % (95-98) 06/09/18 04:18 PT/INR, D-dimer PT 17.9 Seconds (9.4-12.1) H 06/08/18 04:05 Abnormal lab findings: Abnormal lab results WBC 3.8 K/mcL (4.3-11.1) L 06/08/18 04:05 RBC 3.60 M/mcL (4.19-5.50) L 06/09/18 03:50 Hgb 11.6 g/dL (12.9-16.9) L D 06/09/18 03:50 Hct 35.6 % (37.5-50.1) L 06/09/18 03:50 MCV 109.4 fL (83.0-100.0) H 06/07/18 16:10 MCHC 29.1 g/dL (31.6-35.5) L 06/07/18 16:10 RDW 15.9 % (11.5-14.5) H 06/09/18 03:50 Plt Count 106 K/mcL (140-400) L 06/09/18 03:50 0.4 K/mcL (0.6-4.6) L 06/08/18 04:05 Decreased (Normal) L 06/08/18 04:05 PT 17.9 Seconds (9.4-12.1) H 06/08/18 04:05 APTT 43.6 Seconds (26.0-36.0) H 06/07/18 16:10 ABG pH 7.50 pH Units (7.32-7.45) H 06/09/18 04:18 ABG pCO2 28 mmHg (35-45) L D 06/07/18 22:27 ABG pO2 64 mmHg (85-104) L 06/08/18 08:21 ABG HCO3 30 mEq/L (21-27) H 06/09/18 04:18 ABG Total CO2 31 mEq/L (20-26) H 06/09/18 04:18 ABG O2 Saturation 93 % (95-98) L 06/08/18 08:21 ABG Base Excess 6 mEq/L (-2 to 3) H 06/09/18 04:18 Potassium 3.0 mEq/L (3.5-5.1) L D 06/08/18 04:05 Carbon Dioxide 31 mEq/L (23-29) H 06/09/18 03:50 BUN 36 mg/dL (6-20) H 06/08/18 04:05 3.67 mg/dL (0.70-1.30) H 06/09/18 03:50 Est GFR ( Amer) 21 (> 60) L 06/09/18 03:50 Est GFR (Non-Af Amer) 17 (> 60) L 06/09/18 03:50 5 (6-26) L 06/09/18 03:50 Glucose 68 mg/dL (70-105) L 06/09/18 03:50 POC Glucose 60 mg/dL (70-99) L 06/09/18 11:40 308 (280-300) H 06/08/18 04:05 Lactic Acid 4.8 mmol/L (0.5-2.2) H* 06/07/18 19:51 Phosphorus 1.7 mg/dL (2.7-4.5) L 06/08/18 04:05 1.1 mg/dL (0.3-1.0) H 06/08/18 04:05 0.4 mg/dL (0.0-0.2) H 06/08/18 04:05 AST 51 Units/L (13-39) H 06/08/18 04:05 120 Units/L (34-104) H 06/08/18 04:05 0.18 ng/mL (< 0.04) H* 06/07/18 21:07 B-Natriuretic Peptide 3722 pg/mL (Less than 100) H 06/07/18 16:17 5.7 g/dL (6.4-8.9) L 06/08/18 04:05 3.2 g/dL (3.5-5.7) L 06/08/18 04:05 Hep Bs Antibody < 3.10 mIU/mL (10.00-) L 06/08/18 12:10 - Microbiology Findings Microbiology Findings: Microbiology, Last 48 Hours 06/07/18 17:49 Blood Culture - Preliminary Peripheral Venipuncture Gram Positive Rods 06/07/18 17:49 Blood Culture - Preliminary Peripheral Venipuncture Culture is incubating and being continuously mon itored for growth. Final report to follow. - Clinical Findings Intake & Output: Intake & Output 06/08/18 06/09/18 06/09/18 23:59 07:59 15:59 Intake Total 950 / 2051 692 / 692 Output Total 5530 / 7455 110 / 280 170 / 280 Balance -4580 / -5404 582 / 412 -170 / 412 Weight 74.4 kg - Attending Attestation I examined this patient and my medical decision-making was reviewed with the Resident Physician. I agree with the documented findings, disposition and treatment plan as described except to the extent set forth below. Patient seen and examined. Labs, radiology, chart personally reviewed. 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 Neurology is following And palliative care was consulted. Pulmonary: Acceptable oxygenation and ventilation and no plan for extubation at this time. Family at the bedside and possible compassionate extubation. Chest tube is draining less and will leave it at this time. Cardiovascular: stable GI: Nutrition per dietary and GI prophylaxis per routine Heme: DVT prophylaxis per routine ID: Continue antibiotics and plan to de-escalation Renal; urine out put and renal funtion reviewed. Endorcine: blood glucose is monitored Lines: all lines checked and no evidence of infections Skin: skin care to prevent pressure ulcers per nursing routine care Overall prognosis is very poor.
[2018-06-09] MEDS ORDERED: 0.9 % Sodium Chloride 250 ML IVC PRN (07:23)
--- NOTE | 2018-06-09 07:23 | Nephrology Progress Note ---
Date of Encounter: 06/09/18 Time of Encounter: 07:23 - Assessment and Plan (1) ESRD (end stage renal disease) on dialysis Status: Chronic Tentatively I was planning for UF today (Friday), but will hold off until after his Neuro work up and CT, which if as expected it shows anoxic brain injury, then I would not have him go through more HD (see below). He remains intubated, with little neurologic response. Many of his family members were present in the ICU room during my visit, and I spent approximately 20 minutes updating them in relating how I have known the patient for quite some time as he was one of my first dialysis patients. I answered all of their questions. His mother asked what I would do if he were one of my relatives, and reported that if his CT Head scan revealed concerning findings, then I would not keep him on life support. I updated the ICU team, and Palliative Care attending. He has a poor prognosis. Thank you. (2) Hypokalemia Status: Acute (3) Respiratory failure Status: Acute Qualifiers: Chronicity: unspecified Respiratory failure complication: hypoxia Qualified Code(s): J96.91 - Respiratory failure, unspecified with hypoxia (4) Anemia of chronic disease Status: Acute Subjective Principal diagnosis: ESRD with concern for anoxic brain injury Interval history: The patient was seen and examined in the ICU. He remains intubated, with little neurologic response. Many of his family members were present in the ICU room during my visit, and I spent approximately 20 minutes updating them in relating how I have known the patient for quite some time as he was one of my first dialysis patients. I answered all of their questions. His mother asked what I would do if he were one of my relatives, and reported that if his CT Head scan revealed concerning findings, then I would not keep him on life support. Objective - Vital Signs Vital signs: Vital Signs Temp Pulse Resp BP Pulse Ox 06/09/18 07:10 21 100 06/09/18 06:00 75 23 135/77 100 06/09/18 05:18 24 100 06/09/18 05:00 76 23 126/81 100 06/09/18 04:00 99.5 F 75 23 132/77 100 06/09/18 03:05 23 121/75 100 06/09/18 03:00 72 23 121/75 100 06/09/18 02:00 74 20 130/80 100 06/09/18 01:12 21 143/84 100 06/09/18 01:00 98.9 F 74 22 132/80 100 06/09/18 00:00 72 20 135/78 100 06/08/18 23:20 22 112/84 100 06/08/18 23:00 74 22 112/84 100 06/08/18 22:18 97.4 F L 18 127/81 06/08/18 22:00 73 19 108/72 100 06/08/18 21:49 19 91/69 100 06/08/18 21:45 91/69 06/08/18 21:30 100/73 06/08/18 21:15 92/68 06/08/18 21:00 72 22 94/66 100 06/08/18 20:45 98/69 06/08/18 20:30 107/74 06/08/18 20:15 95/66 06/08/18 20:00 74 20 94/70 100 06/08/18 19:45 99/69 06/08/18 19:30 114/74 06/08/18 19:28 26 105/70 100 06/08/18 19:15 128/76 06/08/18 19:00 98.7 F 74 22 114/74 100 06/08/18 18:45 125/76 06/08/18 18:30 98.9 F 18 136/75 06/08/18 18:00 74 24 139/76 100 06/08/18 17:49 23 128/75 100 06/08/18 17:00 74 22 124/72 99 06/08/18 16:00 97.9 F 73 22 128/76 99 06/08/18 15:37 22 123/70 100 06/08/18 15:00 67 24 123/70 99 06/08/18 14:00 99.2 F 69 24 129/73 99 06/08/18 13:05 22 128/80 99 06/08/18 13:00 97.9 F 67 22 119/71 99 06/08/18 12:00 95.9 F L 61 18 115/70 99 06/08/18 11:10 20 108/67 99 06/08/18 11:00 94.4 F L 51 18 106/66 100 06/08/18 10:01 15 108/67 99 06/08/18 10:00 48 14 108/67 100 06/08/18 09:00 50 12 109/67 100 06/08/18 08:00 92 F L 45 14 101/65 100 06/08/18 07:42 14 109/69 98 Intake and Output 06/08/18 06/08/18 06/09/18 15:59 23:59 07:59 Intake Total 1100 / 2051 950 / 2051 692 / 692 Output Total 925 / 7455 5530 / 7455 110 / 110 Balance 175 / -5404 -4580 / -5404 582 / 582 Intake: IV Fluids 1100 / 1451 350 / 1451 692 / 692 0.9 % Sodium Chloride 1,000 ML 1000 / 1000 @ 999 mls/hr IVC .Q1H1M ONE Rx# :[id number] D5% And 0.45% Nacl 1000 Ml Bag 692 / 692 1,000 ML @ 50 mls/hr IVC .Q20H ALEX Rx#:[id number] Zosyn 3.375 GM In 0.9 % Sodium 100 / 200 100 / 200 Chloride (Mini-Bag +) 100 ML @ 25 mls/hr IVPB Q12HR ALEX Rx#: [id number] Vancocin 750 MG In 0.9 % Sodium 250 / 250 Chloride 250 ML @ 250 mls/hr IVPB ONCE ONE Rx#:[id number] Intake, Rinseback and Flushes 600 / 600 Output: Total Dialysis (HD) Output 2350 / 2350 Rectal Tube 200 / 800 0 / 800 0 / 0 Gastric Drainage 725 / 1225 100 / 1225 0 / 0 Chest Tube Drainage 3080 / 3080 110 / 110 Right Mid-Axillary Chest 3080 / 3080 110 / 110 Other: Weight 74.4 kg Blood Glucose* 60 59 Hemodialysis Net Fluid Removed 1750 (mL) Patient Weight 06/09/18 23:59 Weight 74.4 kg - General Appearance General appearance: Present: well-developed, appears started age, sedated on ventilator, intubated EENT: Present: mucous membranes moist Respiratory: Present: clear Additional Comments: chest tube in place Cardiology: Present: no edema, regular rate, regular rhythm Dialysis Vascular Access: Arteriovenous Fistula (left forearm) thrill: Yes bruit: Yes Gastrointestinal: Present: normoactive bowel sounds, no guarding Integumentary: Present: ecchymotic Neurologic: Present: obtunded (with no reflexes) - Lab 06/09/18 03:50 06/09/18 03:50 Most recent lab results 06/09/18 06/09/18 03:50 04:18 ABG pH 7.50 H ABG pCO2 39 ABG pO2 95 ABG HCO3 30 H ABG O2 Saturation 98 Calcium 9.0 Consult Discharge Plan - Plan Referrals: NONE,PCP [Primary Care Provider] -
[2018-06-09] MEDS ORDERED: 0.9 % Sodium Chloride 1,000 ML ONE (07:32)
[2018-06-09] MEDS: Pantoprazole 40 MG VIAL IVP SCH (08:00)
[2018-06-09] MEDS: Chlorhexidine Rinse 15 ML MOUTHWASH MM SCH (08:00)
--- NOTE | 2018-06-09 09:46 | Neurology Progress Note ---
<Pravin Jennings J - Last Filed: 06/09/18 10:32> Date of Encounter: 06/09/18 Time of Encounter: 09:46 Assessment and Plan (1) Cardiac arrest Current Visit: Yes Status: Acute Clinically, there is been no improvement of the patient's condition overnight. Briefly, neurology is seeing the patient in follow-up due to unresponsive state S/P cardiac arrest and prolonged downtime of approximately 60 minutes before achieving ROSC. Again today the patient does not display any brainstem functions, there is no corneal response or pupillary reflexes. Today there is noted pupillary irregularities with the right pupil greater than left. No gag found and no withdrawal to painful stimuli seen. Given the pupillary irregularities there is increased concern for intracranial swelling further raising suspicion for prolonged anoxia. We will order repeat CT imaging of the head today for further evaluation and to check for increasing intracranial e lópez. An EEG was obtained yesterday and was abnormal. Please see EEG reports; in brief the patterns found on EEG are most consistent with anoxia. Further treatment to be dictated by CT head imaging. Palate of care and intensivists following; recommendations appreciated. (2) Unresponsive state Current Visit: Yes Status: Acute Subjective Principal diagnosis: Cardiac arrest and unresponsive state Interval history: Patient seen in follow-up S/P cardiac arrest and unresponsive state. Neurology evaluating for concerns for possible brain given downtime of 50-60 minutes and concerns for anoxia. Family at bedside today. Discussed further workup including CT imaging of the head. Further, discussed concerns for anoxia given cardiac arrest and prolonged down time. Family has no further questions at this time. Objective - Constitutional Vitals: Temp Pulse Resp BP Pulse Ox 99.0 F 72 21 116/74 99 06/09/18 08:00 06/09/18 08:00 06/09/18 09:10 06/09/18 07:00 06/09/18 09:10 Exam: Examination: Is severely limited due to unresponsiveness S/P cardiac arrest with concern for possible brain General Examination: *CONSTITUTIONAL: Completely unresponsive *EYES: pupils are unequal today, right greater than left *CARDIOVASCULAR no peripheral edema noted on exam Musculoskeletal: *GAIT AND STATION unable to assess *ASSESSMENT OF MUSCLE STRENGTH IN THE UPPER AND LOWER EXTREMITIES all 4 ex tremities remained flaccid *MUSCLE TONE IN THE UPPER AND LOWER EXTREMITIES normal. flaccid *SENSORY EXAMINATION does not respond to any stimuli *REFLEXES: deep tendon reflexes were absent symmetrically Results - Laboratory Findings CBC and BMP: 06/09/18 03:50 06/09/18 03:50 Abnormal lab findings: Abnormal lab results WBC 3.8 K/mcL (4.3-11.1) L 06/08/18 04:05 RBC 3.60 M/mcL (4.19-5.50) L 06/09/18 03:50 Hgb 11.6 g/dL (12.9-16.9) L D 06/09/18 03:50 Hct 35.6 % (37.5-50.1) L 06/09/18 03:50 MCV 109.4 fL (83.0-100.0) H 06/07/18 16:10 MCHC 29.1 g/dL (31.6-35.5) L 06/07/18 16:10 RDW 15.9 % (11.5-14.5) H 06/09/18 03:50 Plt Count 106 K/mcL (140-400) L 06/09/18 03:50 0.4 K/mcL (0.6-4.6) L 06/08/18 04:05 Decreased (Normal) L 06/08/18 04:05 PT 17.9 Seconds (9.4-12.1) H 06/08/18 04:05 APTT 43.6 Seconds (26.0-36.0) H 06/07/18 16:10 ABG pH 7.50 pH Units (7.32-7.45) H 06/09/18 04:18 ABG pCO2 28 mmHg (35-45) L D 06/07/18 22:27 ABG pO2 64 mmHg (85-104) L 06/08/18 08:21 ABG HCO3 30 mEq/L (21-27) H 06/09/18 04:18 ABG Total CO2 31 mEq/L (20-26) H 06/09/18 04:18 ABG O2 Saturation 93 % (95-98) L 06/08/18 08:21 ABG Base Excess 6 mEq/L (-2 to 3) H 06/09/18 04:18 Potassium 3.0 mEq/L (3.5-5.1) L D 06/08/18 04:05 Carbon Dioxide 31 mEq/L (23-29) H 06/09/18 03:50 BUN 36 mg/dL (6-20) H 06/08/18 04:05 3.67 mg/dL (0.70-1.30) H 06/09/18 03:50 Est GFR ( Amer) 21 (> 60) L 06/09/18 03:50 Est GFR (Non-Af Amer) 17 (> 60) L 06/09/18 03:50 5 (6-26) L 06/09/18 03:50 Glucose 68 mg/dL (70-105) L 06/09/18 03:50 POC Glucose 66 mg/dL (70-99) L 06/09/18 07:22 308 (280-300) H 06/08/18 04:05 Lactic Acid 4.8 mmol/L (0.5-2.2) H* 06/07/18 19:51 Phosphorus 1.7 mg/dL (2.7-4.5) L 06/08/18 04:05 1.1 mg/dL (0.3-1.0) H 06/08/18 04:05 0.4 mg/dL (0.0-0.2) H 06/08/18 04:05 AST 51 Units/L (13-39) H 06/08/18 04:05 120 Units/L (34-104) H 06/08/18 04:05 0.18 ng/mL (< 0.04) H* 06/07/18 21:07 B-Natriuretic Peptide 3722 pg/mL (Less than 100) H 06/07/18 16:17 5.7 g/dL (6.4-8.9) L 06/08/18 04:05 3.2 g/dL (3.5-5.7) L 06/08/18 04:05 Hep Bs Antibody < 3.10 mIU/mL (10.00-) L 06/08/18 12:10 Consult Discharge Plan - Plan Referrals: NONE,PCP [Primary Care Provider] - <Ramón Gray I - Last Filed: 06/09/18 15:20> Date of Encounter: 06/09/18 Assessment and Plan (1) Anoxic brain damage Current Visit: Yes Status: Acute This patient was an history and exam findings as well as imaging studies seems to be consistent with severe anoxic/hypoxic brain injury. There is no significant change in his overall neurological status since yesterday Patient does not have any brainstem reflexes except minimal breathing over the vent. Now his pupils are irregular, CT scan of the head did shows evidence of generali zed cerebral edema seems to be consistent with severe anoxia. Considering overall his prognosis looks very grave. Discussed in detail with the patient family was present at the bedside. (2) Cardiac arrest Current Visit: Yes Status: Acute I have personally performed a face to face diagnostic evaluation, including HPI, EXAM, which is included in the Assesment and plan, which was discussed with Pravin Jennings CNP, I agree with the above outlined documentation. Ramón Gray MD. NeurologyI (3) Unresponsive state Current Visit: Yes Status: Acute Objective - Constitutional Vitals: Temp Pulse Resp BP Pulse Ox 99.2 F 67 16 95/61 99 06/09/18 11:00 06/09/18 12:00 06/09/18 12:00 06/09/18 12:00 06/09/18 12:20 Results - Laboratory Findings CBC and BMP: 06/09/18 03:50 06/09/18 03:50 Abnormal lab findings: Abnormal lab results WBC 3.8 K/mcL (4.3-11.1) L 06/08/18 04:05 RBC 3.60 M/mcL (4.19-5.50) L 06/09/18 03:50 Hgb 11.6 g/dL (12.9-16.9) L D 06/09/18 03:50 Hct 35.6 % (37.5-50.1) L 06/09/18 03:50 MCV 109.4 fL (83.0-100.0) H 06/07/18 16:10 MCHC 29.1 g/dL (31.6-35.5) L 06/07/18 16:10 RDW 15.9 % (11.5-14.5) H 06/09/18 03:50 Plt Count 106 K/mcL (140-400) L 06/09/18 03:50 0.4 K/mcL (0.6-4.6) L 06/08/18 04:05 Decreased (Normal) L 06/08/18 04:05 PT 17.9 Seconds (9.4-12.1) H 06/08/18 04:05 APTT 43.6 Seconds (26.0-36.0) H 06/07/18 16:10 ABG pH 7.50 pH Units (7.32-7.45) H 06/09/18 04:18 ABG pCO2 28 mmHg (35-45) L D 06/07/18 22:27 ABG pO2 64 mmHg (85-104) L 06/08/18 08:21 ABG HCO3 30 mEq/L (21-27) H 06/09/18 04:18 ABG Total CO2 31 mEq/L (20-26) H 06/09/18 04:18 ABG O2 Saturation 93 % (95-98) L 06/08/18 08:21 ABG Base Excess 6 mEq/L (-2 to 3) H 06/09/18 04:18 Potassium 3.0 mEq/L (3.5-5.1) L D 06/08/18 04:05 Carbon Dioxide 31 mEq/L (23-29) H 06/09/18 03:50 BUN 36 mg/dL (6-20) H 06/08/18 04:05 3.67 mg/dL (0.70-1.30) H 06/09/18 03:50 Est GFR ( Amer) 21 (> 60) L 06/09/18 03:50 Est GFR (Non-Af Amer) 17 (> 60) L 06/09/18 03:50 5 (6-26) L 06/09/18 03:50 Glucose 68 mg/dL (70-105) L 06/09/18 03:50 POC Glucose 60 mg/dL (70-99) L 06/09/18 11:40 308 (280-300) H 06/08/18 04:05 Lactic Acid 4.8 mmol/L (0.5-2.2) H* 06/07/18 19:51 Phosphorus 1.7 mg/dL (2.7-4.5) L 06/08/18 04:05 1.1 mg/dL (0.3-1.0) H 06/08/18 04:05 0.4 mg/dL (0.0-0.2) H 06/08/18 04:05 AST 51 Units/L (13-39) H 06/08/18 04:05 120 Units/L (34-104) H 06/08/18 04:05 0.18 ng/mL (< 0.04) H* 06/07/18 21:07 B-Natriuretic Peptide 3722 pg/mL (Less than 100) H 06/07/18 16:17 5.7 g/dL (6.4-8.9) L 06/08/18 04:05 3.2 g/dL (3.5-5.7) L 06/08/18 04:05 Hep Bs Antibody < 3.10 mIU/mL (10.00-) L 06/08/18 12:10
--- NOTE | 2018-06-09 10:45 | Palliative - Consult Note ---
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 They feel they have a god understanding of the prognosis, and want to know the results of the CT scan. If CT scan shows anoxia as expected, they will proceed with compassionate extubation and comfort care. (2) Palliative care encounter Status: Acute (3) Anoxic brain damage Status: Acute Assessment and plan: Neurology appreciated, CT scan or further evaluation and to check for increasing intracranial edema. (4) Cardiac arrest Status: Acute Palliative-CN HPI - Data of Consult Requesting Physician: Paul Patten Primary Care Provider: PCP NONE - Consult Narrative Palliative Care/Comfort Measures: Palliative care Reason for consult: Poor prognosis, discuss withdrawal of care. History of present illness: Mr. Weaver is a 58 year old male with history of diabetes, chronic respiratory failure on 2 L of oxygen, ESRD on hemodialysis Friday, who presented to the ED with cardiac arrest witnessed at home by the mother. Patient underwent 50-60 minutes of CPR and ROSC was obtained. However, patient has been unresponsive since admission, no reflexes, overbreathing the vent. Palliative consult for GOC discussion. CC: Paul Patten - Time Spent with Patient Time: Total time spent is greater than 50% in coordination of care (as documented) at patient's floor/unit and/or counseling patient: Past Med Surg Social Fam HX - Past Medical History Medical history: other Additional medical history: heart cath 2018 Psychiatric history: no psych history - Past Surgical History Surgical History: appendectomy, other Additional surgical history: R FOOT SURGERY. toe amputation 11/04/2017 - Social History Smoking Status: Current every day smoker Smokeless Tobacco Status: No Alcohol use: unknown Drug use: unknown Medications and Allergies Calcium Acetate [Phos-LO] 2,001 mg PO TIDWM 02/09/15 [History] Atorvastatin [Lipitor] 40 mg PO DAILY 10/03/17 [History] Bumetanide [Bumex] 1 mg PO DAILY 10/03/17 [History] Docusate Sodium [Dok] 100 mg PO BID 10/03/17 [History] Isosorbide DInitrate [Isosorbide Dinitrate] 50 mg PO TID 10/03/17 [History] Losartan Potassium [Cozaar] 100 mg PO DAILY 10/03/17 [History] NIFEdipine [Nifedipine ER] 60 mg PO DAILY 10/03/17 [History] OxyCODONE Immed Rel [Roxicodone 15 MG] 7.5 mg PO QID PRN 10/03/17 [History] Renal Vitamin [Renal Caps Softgel] 1 cap PO DAILY 10/03/17 [History] Aspirin [Adult Aspirin Regimen] 81 mg PO DAILY 06/08/18 [History] Lidocaine/Prilocaine [Emla] 1 appl TP AD 06/08/18 [History] Allergy/AdvReac Type Severity Reaction Status Date / Time No Known Allergies Allergy Verified 06/08/18 09:21 ROS unobtainable: due to mental status Palliative Care-Exam - Constitutional Vitals: Temp Pulse Resp BP Pulse Ox 99.0 F 72 18 99/69 99 06/09/18 08:00 06/09/18 10:00 06/09/18 10:00 06/09/18 10:00 06/09/18 10:00 General appearance: Present: average body habitus - Eye Pupils: Present: fixed, irregular - ENT ENT exam: Present: mucous membranes moist - Neck Neck exam: Present: full ROM - Respiratory Respiratory exam: Present: decreased breath sounds - Cardiovascular Cardiovascular exam: Present: RRR, +S1, +S2 - GI/Abdominal Exam GI/Abdominal exam: Present: diminished bowel sounds, soft - Catheter Type: Urethral (Herbert) - Extremities Exam Extremities exam: Present: pedal edema - Neurological Exam Additional comments: not sedated, unresponsive to deep pain, no gag,corneal or pupillary reflex, overbreathing the vent. Internal Medicine - CN: Reslt - Labs CBC & Chem 7: 06/09/18 03:50 06/09/18 03:50 Labs: Short CBC 06/09/18 Range/Units 03:50 WBC 7.3 D (4.3-11.1) K/mcL Hgb 11.6 L D (12.9-16.9) g/dL Hct 35.6 L (37.5-50.1) % Plt Count 106 L (140-400) K/mcL Neutrophils # 5.8 (1.6-8.9) K/mcL BMP 06/09/18 03:50 Sodium 141 Potassium 4.0 D Chloride 98 Carbon Dioxide 31 H BUN 20 Creatinine 3.67 H Glucose 68 L Calcium 9.0 Liver Function 06/08/18 Range/Units 04:05 Total Bilirubin 1.1 H (0.3-1.0) mg/dL Direct Bilirubin 0.4 H (0.0-0.2) mg/dL AST 51 H (13-39) Units/L ALT 14 (7-52) Units/L Alkaline Phosphatase 120 H (34-104) Units/L Albumin 3.2 L (3.5-5.7) g/dL - ABG Interpretation ABG results: ABG ABG pH 7.50 pH Units (7.32-7.45) H 06/09/18 04:18 ABG pCO2 39 mmHg (35-45) 06/09/18 04:18 ABG pO2 95 mmHg (85-104) 06/09/18 04:18 ABG O2 Saturation 98 % (95-98) 06/09/18 04:18 PT/INR, D-dimer PT 17.9 Seconds (9.4-12.1) H 06/08/18 04:05 - Impressions Impressions Chest X-Ray 06/08/18 15:51 IMPRESSION: Interval placement of right-sided chest tube with decreasing volume of fluid in the right pleural space with re-expansion of portions of the right lung. Perihilar edema. D/ / 06/08/2018 16:11:48 Seth Proctor MD / [facility] Interpreting Provider: Seth Proctor MD Chest X-Ray 06/09/18 07:02 IMPRESSION: Interval reduction in the right-sided pleural effusion with a right-sided subpulmonic chest tube in place. However, a new 1.8 cm low right apical pneumothorax has developed. Findings sent to the [facility] to be communicated to the clinical service. D/ / Asim Toro MD / Asim Toro MD Interpreting Provider: Asim Toro MD Consult Discharge Plan - Plan Referrals: NONE,PCP [Primary Care Provider] - Palliative Quality Palliative Quality: Screen for Code Status: Yes, Screen for Goals of Care: Yes, Screen for Pain: Yes, If Pain Regimen Started, Initiate Bowel Regimen: NA, Screen for Nausea/Vomitting: NA Code Status: 06/07/18 17:44 Resuscitation Status: Active [RES] Routine Comment: Resuscitation Status: Full Code 06/09/18 08:27 DNR [Resuscitation Status: Active] [RES] Routine Comment: Resuscitation Status: DNR-Comfort Care-Arrest Palliative Scale - Palliative Performance Scale How ambulatory is this patient?: Totally bed bound What is patient's level of activity and evidence of disease?: Unable to do any activity, Extensive disease How much self-care assistance does patient require?: Total care How much oral intake does the patient have?: Mouth care only What is this patient's level of consciousness?: Drowsy or coma with or without confusion Palliative Performance Score: 10 %
[2018-06-09] MEDS: D5% in 0.45% NACL 1,000 ML IVC SCH (11:33)
[2018-06-09 12:02] VITALS: BP 95/61
[2018-06-09] MEDS ORDERED: Aminoglycoside Consult 1 EACH MC ONE (12:36)
--- NOTE | 2018-06-09 15:16 | Electrocardiograph Report ---
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
--- NOTE | 2018-06-09 18:34 | Death Note ---
<Adrián Mittal - Last Filed: 06/09/18 18:32> Discharge Sum: Summary - Date and Time Date of admission: 06/07/18 18:32 Date of : 06/09/18 Time of : 12:37 - Summary Details: Patient was terminally extubated. Please see nursing documentation for events at time of . - Additional Data Confirmation of as documented by pronouncing clinician: other (Please see nursing documentation for events at time of ) Family: at bedside Attending/PCP notified?: Yes Attending physician: Paul Patten Was code activated?: No Autopsy requested?: No forms examiner notified?: No Organ bank notified?: Yes Advance directives: No Hospice patient?: No Discharge Sum: Diag - PCOD Probable Cause of : Cardiac arrest Discharge Sum: Prov - Provider Primary care physician: PCP NONE Admitting clinician: Hunter Polanco Attending physician on admission: Hunter Polanco Consults: 06/07/18 17:51 Consult to Cardiology [CONS] Stat Comment: Consulting Provider: Cardiology [facility] Reason for Consult: cardiac arrest Call Completed: Yes Consult to Critical Care [CONS] Stat Consulting Provider: Pulm Crit Care [facility] Reason for Consult: cardiac arrest Call Completed: No Consult to Nephrology [CONS] Routine Consulting Provider: Kidney [facility]/ANDERSON/RAVINDRA/NINO Reason for Consult: ESRD on HD Call Completed: Yes 06/08/18 07:15 Consult to Dialysis [CONS] ONCE 06/08/18 09:26 Consult to Neurology [CONS] Routine Consulting Provider: Neurology [facility] Reason for Consult: assess neurological status, consideration for brain Time Notified: 09:26 Call Completed: Yes 06/08/18 12:31 Consult to Interpret Exam [CONS] Routine Consulting Provider: Ramón Gray I Consult to Interpret Exam: Interpret EEG 06/09/18 07:30 Consult to Dialysis [CONS] ONCE 06/09/18 08:29 Consult to Palliative Care [CONS] Routine Comment: Consulting Provider: Palliative Care [facility] Reason for Consult: Assistance with counseling, family understands prognosis and plan of care. Changing to DNR/CCA, and if CT head is indicative of brain will likely withdraw care. Time Notified: 08:30 Call Completed: No Pronouncing clinician: Javier Trevino <Javier Trevino - Last Filed: 06/09/18 22:27> Discharge Sum: Summary - Date and Time Date of admission: 06/07/18 18:32 - Additional Data Attending physician: Paul Patten Discharge Sum: Prov - Provider Primary care physician: PCP NONE Consults: 06/07/18 17:51 Consult to Cardiology [CONS] Stat Comment: Consulting Provider: Cardiology [facility] Reason for Consult: cardiac arrest Call Completed: Yes Consult to Critical Care [CONS] Stat Consulting Provider: Pulm Crit Care [facility] Reason for Consult: cardiac arrest Call Completed: No Consult to Nephrology [CONS] Routine Consulting Provider: Kidney [facility]ERSON/RAVINDRA/NINO Reason for Consult: ESRD on HD Call Completed: Yes 06/08/18 07:15 Consult to Dialysis [CONS] ONCE 06/08/18 09:26 Consult to Neurology [CONS] Routine Consulting Provider: [facility]rology [facility] Reason for Consult: assess neurological status, consideration for brain Time Notified: 09:26 Call Completed: Yes 06/08/18 12:31 Consult to Interpret Exam [CONS] Routine Consulting Provider: Ramón Gray I Consult to Interpret Exam: Interpret EEG 06/09/18 07:30 Consult to Dialysis [CONS] ONCE 06/09/18 08:29 Consult to Palliative Care [CONS] Routine Comment: Consulting Provider: Palliative Care [facility] Reason for Consult: Assistance with counseling, family understands prognosis and plan of care. Changing to DNR/CCA, and if CT head is indicative of brain will likely withdraw care. Time Notified: 08:30 Call Completed: No - Attending Attestation I examined this patient and my medical decision-making was reviewed with the Resident Physician. I agree with the documented findings, disposition and treatment plan as described except to the extent set forth below. Patient seen and examined. Labs, radiology, chart personally reviewed. Agree with resident's documentation. Patient s/p code blue and he was hypothermic, but with aggressive treatment, his temp has improved. Patient was seen by palliative care and after multiple discussion with family and patient was seen by neurologist as well, the decision made by family for extubation for comfort and he was extubated and soon after that he .
--- NOTE | 2018-06-10 15:52 | Electrocardiograph Report ---
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
== END 2018-06-09 12:37 | disposition expired | DRG 133 ==
LOC: EMEROOARM 15:55 → ICNU 18:32 → MERGE 18:32 → ICNU 20:00
PROVIDERS: ADMIT Student in an Organized Health Care Education/Training Program; ATTEND Student in an Organized Health Care Education/Training Program